=== PATIENT | male | born 1980 | race Two or more races ===

== ENCOUNTER 2022-01-04 10:17 | Outpatient (REF) | payer OTHER, SELFPAY ==
[2022-01-04 11:42] LABS: MANUAL DIFF FLAG NO
[2022-01-04 12:07] LABS: Basophils Percent Auto 0.4 % (0-2); Eosinophils Absolute Auto 0.1 X10*3/uL (0.0-0.4); Eosinophils Percent Auto 0.6 % (0-4); Hematocrit 45.1 % (42.0-52.0); Hemoglobin 16.2 g/dl (14.0-18.0); Imm Gran Abs Auto 0.02 X10*3/uL (0.00-0.03); Imm Gran Pct Auto 0.2 % (0.0-0.4); Lymphocytes Absolute Auto 2.2 X10*3/uL (1.2-4.9); Mean Corpuscular HGB Conc 35.9 g/dl (31.0-36.0); Mean Corpuscular Hemoglobin 30.1 pg (27.0-33.0); Mean Corpuscular Volume 83.8 fL (80.0-98.0); Mean Platelet Volume 11.1 fL (9.4-12.4); Monocytes Absolute Auto 0.4 X10*3/uL (0.1-1.2); Monocytes Percent Auto 4.9 % (2-11); Neutrophils Absolute Auto 5.4 x10*3/uL (2.0-8.3); Neutrophils Percent Auto 66.9 % (45-73); Platelet Count 264 X10*3/uL (160-400); Red Blood Count 5.38 X10*6/uL (4.60-5.80); Red Cell Distribution Width 11.8 % (11.0-16.0); White Blood Count 8.1 X10*3/uL (4.8-10.8)
[2022-01-04 12:18] LABS: Alanine Aminotransferase 20 U/L (0-40); Albumin Level 4.7 g/dL (3.5-5.0); Alkaline Phosphatase 51 U/L (39-117); Anion Gap 15 (12-20); Aspartate Amino Transferase 13 U/L (5-37); Bilirubin Total 2.1 mg/dL (0.0-1.0); Blood Urea Nitrogen 12 mg/dL (9-16); Calcium 9.8 mg/dL (8.4-10.2); Carbon Dioxide 26 mmol/L (22-29); Chloride 100 mmol/L (96-108); Cholesterol 246 mg/dL; Estimated Glomerular Filt Rate > 60; Glucose Fasting 310 mg/dL (60-99); HDL Cholesterol 46 mg/dL; LDL Cholesterol Calculated 168 mg/dl; Potassium 4.1 mmol/L (3.3-5.1); Sodium 137 mmol/L (135-145); Total Protein 7.2 g/dL (6.5-8.0); Triglycerides 162 mg/dL
[2022-01-04 12:42] LABS: TSH reflex Free T4 2.38 uIU/mL (0.32-4.0)
[2022-01-09 12:32] LABS: Vitamin D 25-OH, D2 <4 ng/mL; Vitamin D 25-OH, D3 46 ng/mL; Vitamin D 25-OH, Total 46 ng/mL (30-100)
== END 2022-01-04 10:18 | disposition home or self-care (01) ==
LOC: HO.HMGCLDS 10:17
PROVIDERS: PCP Internal Medicine; Visit Provider Internal Medicine
DX: R10.13 Epigastric pain (principal); R14.0 Abdominal distension (gaseous); E13.9 Other specified diabetes mellitus without complications; N52.9 Male erectile dysfunction, unspecified; Z76.89 Persons encountering health services in other specified circumstances
CPT/HCPCS: 36415; 80053; 80061; 82306; 84443; 85025

== ENCOUNTER 2022-01-22 08:30 | Outpatient (REF) | payer OTHER, SELFPAY ==
[2022-01-22 12:39] LABS: Bilirubin Direct 0.8 mg/dL (0.0-0.5); C Reactive Protein 0.09 mg/dL (< or = 0.50)
[2022-01-22 14:59] LABS: Erythrocyte Sedimentation Rate 3 MM/HR (0-15)
[2022-01-29 13:57] LABS: Endomysial IgA Antibody Negative (Negative)
[2022-01-30 09:17] LABS: Transglutaminase IgA <1.0 U/mL
== END 2022-01-22 08:31 | disposition home or self-care (01) ==
LOC: HO.WFDLDS 08:30
PROVIDERS: Visit Provider Physician Assistant
DX: R10.13 Epigastric pain (principal); R14.0 Abdominal distension (gaseous); K52.9 Noninfective gastroenteritis and colitis, unspecified
CPT/HCPCS: 36415; 82248; 85652; 86140; 86231; 86364

== ENCOUNTER 2022-01-25 09:46 | Outpatient (REF) | payer OTHER, SELFPAY ==
[2022-02-01 17:37] LABS: Calprotectin, Fecal 191 mcg/g
[2022-02-10 11:52] LABS: Fecal Fat Qualitative NORMAL (NORMAL)
== END 2022-01-25 09:47 | disposition home or self-care (01) ==
LOC: HO.WFDLNP 09:46
PROVIDERS: Visit Provider Physician Assistant
DX: K52.9 Noninfective gastroenteritis and colitis, unspecified (principal); R14.0 Abdominal distension (gaseous)
CPT/HCPCS: 82705; 83993; 87493

== ENCOUNTER 2022-03-14 10:45 | Outpatient (REF) | payer OTHER, SELFPAY ==
[2022-03-14 14:06] LABS: Alanine Aminotransferase 15 U/L (0-40); Albumin Level 4.3 g/dL (3.5-5.0); Alkaline Phosphatase 37 U/L (39-117); Anion Gap 14 (12-20); Aspartate Amino Transferase 10 U/L (5-37); Bilirubin Total 1.7 mg/dL (0.0-1.0); Blood Urea Nitrogen 13 mg/dL (9-16); Calcium 9.2 mg/dL (8.4-10.2); Carbon Dioxide 27 mmol/L (22-29); Chloride 104 mmol/L (96-108); Estimated Glomerular Filt Rate > 60; Glucose Random 153 mg/dL (60-115); Potassium 3.7 mmol/L (3.3-5.1); Sodium 141 mmol/L (135-145); Total Protein 6.6 g/dL (6.5-8.0)
== END 2022-03-14 10:46 | disposition home or self-care (01) ==
LOC: HO.HMGCLDS 10:45
PROVIDERS: PCP Internal Medicine; Visit Provider Physician Assistant
DX: K52.9 Noninfective gastroenteritis and colitis, unspecified (principal)
CPT/HCPCS: 36415; 80053

== ENCOUNTER 2022-05-21 10:28 | Outpatient (REF) | payer OTHER, SELFPAY ==
[2022-05-21 14:16] LABS: Estimated Average Glucose 140 mg/dL; Hemoglobin A1c % 6.5 %
[2022-05-21 14:24] LABS: Alanine Aminotransferase 16 U/L (0-40); Albumin Level 4.8 g/dL (3.5-5.0); Alkaline Phosphatase 41 U/L (39-117); Anion Gap 16 (12-20); Aspartate Amino Transferase 15 U/L (5-37); Bilirubin Total 2.4 mg/dL (0.0-1.0); Blood Urea Nitrogen 11 mg/dL (9-16); Calcium 9.7 mg/dL (8.4-10.2); Carbon Dioxide 26 mmol/L (22-29); Chloride 102 mmol/L (96-108); Estimated Glomerular Filt Rate > 60; Glucose Random 135 mg/dL (60-115); Potassium 3.7 mmol/L (3.3-5.1); Sodium 140 mmol/L (135-145); Total Protein 7.2 g/dL (6.5-8.0)
[2022-05-21 15:29] LABS: Creatinine Urine 71.21 mg/dL; Microalbum/Creatinine Ratio Ur 29.4 ug/mg cr
[2022-05-22 16:27] LABS: LDL Cholesterol Direct 147 mg/dL (<100)
== END 2022-05-21 10:29 | disposition home or self-care (01) ==
LOC: HO.HMGCLDS 10:28
PROVIDERS: PCP Internal Medicine; Visit Provider Internal Medicine
DX: E78.9 Disorder of lipoprotein metabolism, unspecified (principal); K58.9 Irritable bowel syndrome, unspecified; E13.9 Other specified diabetes mellitus without complications
CPT/HCPCS: 36415; 80053; 82043; 83036; 83721

== ENCOUNTER → 2022-07-18 12:49 | Day surgery (SDC) | payer OTHER, SELFPAY ==
[2022-07-09 14:38] VITALS: BMI 28.3
--- NOTE | 2022-07-17 13:26 | HO.ANESPROP2 ---
Documented by User: Lupis Brar NP 07/17/22 13:27 HPI - Anesthesia Eval Consult details Narrative: 42yo M for Upper Endoscopy and Colonoscopy [facility] Active Problems Active Problems: All Active Problems (Updated 07/09/22 @ 14:38 by Bambi Walker, LARRY) Diabetes 1.5, managed as type 2 (Acute) Erectile dysfunction (Acute) Establishing care with new doctor, encounter for (Acute) Epigastric pain (Acute) Bloating symptom (Acute) Chronic diarrhea (Acute) Uncontrolled diabetes mellitus (Acute) Environmental allergies (Acute) Tachycardia (Acute) Lipid disorder (Acute) IBS (irritable bowel syndrome) (Acute) Tinea corporis (Acute) Post-COVID syndrome (Acute) Shortness of breath (Acute) Tiredness (Acute) Past Medical History Medical History Diabetes Environmental allergies Erectile dysfunction History of COVID-19 Post-COVID syndrome Family History Family History Father Diabetes Thyroid disease Mother Diabetes Surgical History Surgical History History of anal fissures History of esophagogastroduodenoscopy (EGD) Hx of colonoscopy Social History Social History Housing: House Are you a primary inspector health care facilities to a significant other at home: No Do you presently have visiting nurse or other home services: No Alcohol intake: never Patient Tobacco Use Status: Never used Tobacco e-Cigarette/Vaping Use: Never Used Substance Use Type: Marijuana service: No Current occupational status: employed Cognitive needs: No Hearing needs: No Vision needs: No Meds Allergies Allergy/AdvReac Type Severity Reaction Status Date / Time No Known Allergies Allergy Verified 11/28/22 09:23 Home Medications Medication Instructions Recorded Confirmed Last Taken Type cetirizine 10 mg chewable tablet 10 mg PO DAILY 01/02/22 11/28/22 07/16/22 History Exam Exam Date and Time: July 17, 2022 1326 Height,Weight and Vital Signs: Height 5 ft 5 in Weight 77.111 kg Pertinent Lab Results Pertinent Lab Results: Laboratory Tests 01/04/22 05/21/22 10:24 10:32 WBC 8.1 Hgb 16.2 Hct 45.1 Plt Count 264 Sodium 140 Potassium 3.7 Chloride 102 Carbon Dioxide 26 BUN 11 Creatinine 0.75 Assessment and Plan Assessment Anesthesia Assessment: Chart Reviewed Documented by User: Florin Ly MD 11/28/22 17:27 [facility] Past Medical History Medical History Diabetes Environmental allergies Erectile dysfunction History of COVID-19 Post-COVID syndrome Family History Family History Father Diabetes Thyroid disease Mother Diabetes Family history of problems with anesthesia: No Surgical History Surgical History History of anal fissures History of esophagogastroduodenoscopy (EGD) Hx of colonoscopy History of Problems with Anesthesia: No Social History Social History Housing: House Are you a primary inspector health care facilities to a significant other at home: No Do you presently have visiting nurse or other home services: No Alcohol intake: never Patient Tobacco Use Status: Never used Tobacco e-Cigarette/Vaping Use: Never Used Substance Use Type: Marijuana service: No Current occupational status: employed Cognitive needs: No Hearing needs: No Vision needs: No Meds Allergies Allergy/AdvReac Type Severity Reaction Status Date / Time No Known Allergies Allergy Verified 11/28/22 09:23 Home Medications Medication Instructions Recorded Confirmed Last Taken Type cetirizine 10 mg chewable tablet 10 mg PO DAILY 01/02/22 11/28/22 07/16/22 History Exam Airway Mallampati Class: III TM Dist: >3cm Neck ROM: Full Loose/Missing/Broken Teeth: Yes (chipped teeth ) Heart: S1,S2 Lungs: diminished breath sounds Assessment and Plan Assessment Anesthesia Assessment: Anesthesia Plan Discussed Final Anesthetic Review Family History of Problems with Anesthesia: No History of Problems with Anesthesia: No NPO: Yes ASA Class: II Final Preanesthetic Review: Meds/Allgs Chart Reviewed, Consent Obtained/Reviewed and Anes Risks/Benef Reviewed Patient Risk: High Procedure Risk: Intermediate Anesthetic Plan Anesthetic Plan: MAC: and Agree w/ Assess. and Plan Disposition: Standard PACU
[2022-07-18 12:55] VITALS: BP 154/81; PULSE 90; RESP 20; TEMP 36.6; O2SAT 97
[2022-07-18 13:03] LABS: Glucose, Whole Blood 122 mg/dL (60-115)
[2022-07-18] MEDS: Lactated Ringers 1,000 ML 100 ML IVCONT (13:23)
[2022-07-18] MEDS: Albuterol/Iprat 2.5/0.5MG 3 ML AMPUL.NEB 1.5 ML INHALE (13:33)
[2022-07-18 13:36] VITALS: PULSE 75; RESP 20; O2SAT 93
--- NOTE | 2022-07-18 14:49 | W.PM.OPN ---
Operative Note Operative Note Date of Service: 07/18/22 Narrative: Operative Information Procedure Description: EGD, Colonoscopy Indication: diarrhea Anesthesia: MAC FLEXIBLE TRANSORAL UPPER GASTROINTESTINAL ENDOSCOPY AND COLONOSCOPY PROCEDURE NOTE UPPER ENDOSCOPY Consent: Indications for the procedure and potential complications of bleeding, perforation, reaction to medications and missed diagnosis were discussed with the patient and informed consent was obtained. Instrument: Olympus GIF H 190 J mid size upper endoscope Monitoring: Vital signs and clinical assessment, continuous EKG monitoring, Pulse oximetry, Carbon Dioxide monitoring and blood pressure monitoring were done throughout the procedure. Procedure: The patient was placed in the left lateral decubitis position and pre-procedure medications were administered and a bite block was placed. The endoscope was inserted into the mouth and advanced under direct vision to the third part of duodenum. A careful inspection was made as the upper endoscope was withdrawn including a retroflexed examination of the proximal stomach; Findings and interventions are described below. Findings: Larynx:normal Esophagus: GE junction at 39 cm, diaphragm hiatus at 41 cm, consistent with 2 cm sliding hiatal hernia, slightly lax LES, bx taken from GEJ and distal esophagus Stomach: Severe erythema and induration mid body and antrum, bx taken. Grade 2 flap valve on retroflexed examination of the cardia. Small polyp, removed with cold forceps Duodenum: bulbar duodenitis, bx taken Intervention: Biopsies as noted above COLONOSCOPY Instrument: Olympus variable stiffness pediatric scope 190L Colonoscopy Monitoring: Vital signs and clinical assessment, continuous EKG monitoring, Pulse oximetry, Carbon Dioxide monitoring and blood pressure monitoring were done throughout the procedure. Colon withdrawal time was 10 minutes. Procedure: The patient was placed in the left lateral decubitis position and pre-procedure medications were administered. After a digital rectal examination of the ano-rectum, the video colonoscope was inserted into the rectum and advanced through the colon to the cecum/TI. The colonoscope was slowly withdrawn in a retrograde panoramic fashion and the colon mucosa was carefully examined including a retroflexed view of the rectum. Findings and interventions are described below. Procedure Difficulty: Findings: Terminal Ileum- mile erythema, bx taken Random bx taken from right, left and rectum areas in separate jars. Cecum:normal Ascending Colon: normal Transverse Colon -normal Descending Colon:normal Sigmoid Colon: normal Rectum: Retroflexion with medium sized internal hemorrhoids, grade I Anorectum - normal Colon preparation: [place] Bowel Preparation Scale Right colon; 2 Transverse colon: 2 Left colon; 2 (0 = Unprepared colon segment with mucosa not seen due to solid stool that cannot be cleared. 1 = Portion of mucosa of the colon segment seen, but other areas of the colon segment not well seen due to staining, residual stool and/or opaque liquid. 2 = Minor amount of residual staining, small fragments of stool and/or opaque liquid, but mucosa of colon segment seen well. 3 = Entire mucosa of colon segment seen well with no residual staining, small fragments of stool or opaque liquid) Impression and Post Procedure Diagnosis: Endoscopy Findings: gastritis hiatal hernia duodenitis mild esophagitis Colonoscopy Findings: mild ileitis internal hemorrhoids Plan: Await Pathology results Repeat Colonoscopy in 10 years or earlier if clinically indicated High fiber diet leaflet avoid straining at stool, epsom salts and sitz bath, anusol supps or cream might consider capsule endoscopy vs CTe for further eval of Small bowel if h pylori pos then treat consider increasing PPI dose, checking compliance, nsaid use Above findings were reviewed with the patient and relevant handouts were provided if indicated.
--- NOTE | 2022-07-18 14:50 | MHC.SHP ---
Pre-Procedural Eval Section A Date of Service: 07/18/22 Section B Chief Complaint: pain and chronic diahrrea Relevant Family History (Specify if Yes): No Relevant Social History: None Present Medications: see Short Stay Collaborative assessment Medical History: Significant History (Diabetes Environmental allergies History of COVID-19 Post-COVID syndrome) History of Previous Operations: Relevant previous surgery/procedure and date(s) ( History of anal fissures History of esophagogastroduodenoscopy (EGD) Hx of colonoscopy) Allergies: Allergies Allergy/AdvReac Type Severity Reaction Status Date / Time No Known Allergies Allergy Verified 05/29/22 11:41 Review of Systems Sugical H&P ROS: Negative: Constitution, Cardiovascular, Respiratory, Neurological, Psychiatric, Hem-Onc, Allergic/Immunologic, Gastrointestinal, Genitourinary, Musculoskeletal, Integumentary, Endocrine and Eyes/Ears/Nose/Throat Exam Surgical H&P Exam: Normal: HEENT, Normal: Heart, Normal: Lungs, Normal: Extremities, Normal: Abdomen, Normal: Skin and Normal: Neurological Plan Diagnosis/Plan: Unchanged I have reviewed the history and physical and performed a pertinent physical examination on my patient. No changes have occurred unless specified. Time Spent With Patient Time: Total time managing care of this patient today ____ minutes.
[2022-07-18 15:48] VITALS: BP 110/69; PULSE 97; RESP 18; TEMP 36.4; O2SAT 98
[2022-07-18 16:03] VITALS: BP 125/83; PULSE 96; RESP 16; O2SAT 97
[2022-07-18 16:11] VITALS: BP 133/93; PULSE 91; RESP 16; TEMP 36.6; O2SAT 98
== END ==
PROVIDERS: PCP Internal Medicine; Visit Provider Internal Medicine Gastroenterology
PROC: (CPT 45380; principal; 2022-07-18 14:00)
DX: K52.9 Noninfective gastroenteritis and colitis, unspecified (principal); K64.0 First degree hemorrhoids; K29.50 Unspecified chronic gastritis without bleeding; K29.80 Duodenitis without bleeding; K20.80 Other esophagitis without bleeding; K44.9 Diaphragmatic hernia without obstruction or gangrene; F12.90 Cannabis use, unspecified, uncomplicated; E11.9 Type 2 diabetes mellitus without complications; Z79.84 Long term (current) use of oral hypoglycemic drugs; Z79.899 Other long term (current) drug therapy; Z91.048 Other nonmedicinal substance allergy status; Z86.16 Personal history of COVID-19
CPT/HCPCS: 45380; 43239; 82947; 88305; 88342; 94640

== ENCOUNTER → 2022-08-01 08:26 | Outpatient (BNVA) | payer OTHER, SELFPAY | PROVIDERS: PCP Internal Medicine; Visit Provider Physician Assistant | DX: K52.9 Noninfective gastroenteritis and colitis, unspecified (principal) ==

== ENCOUNTER 2022-08-16 07:51 | Outpatient (REF) | payer OTHER, SELFPAY ==
--- NOTE | ~2022-08-16 | CT_ITS ---
EXAMINATION: CT ENTEROGRAPHY ABDOMEN AND PELVIS WITH CONTRAST CLINICAL INFORMATION: Iron deficiency. COMPARISON: None TECHNIQUE: Study performed with oral Breeza to distend the gastrointestinal tract. The patient was injected with 85 mL Omnipaque 350 intravenous contrast which was administered without adverse effect. Coronal and sagittal reformatted images were obtained at the technologist's workstation. This CT examination was performed using dose optimization techniques as appropriate, variously including the following: *Automated exposure control *Adjustment of mA and/or kV according to patient size (this includes techniques or standardized protocols for targeted exams where dose is matched to indication/reason for exam; i.e. extremities or head) *Use of iterative reconstruction technique DLP: 403 mGy-cm FINDINGS: LUNG BASES: Normal. No pulmonary consolidation or pleural effusion. LIVER: The liver has normal size, shape, and attenuation. No evidence of cirrhosis. A small area of decreased attenuation in the left lobe adjacent to the falciform ligament is likely from focal steatosis (image 20, series 7). There is peripheral opacification of a 3 cm hypodense focus in the right hepatic lobe in a pattern highly suggestive of cavernous hemangioma. No suspicious liver lesion. GALLBLADDER AND BILIARY TREE: Gallbladder is physiologically distended and without radiopaque stones, wall thickening or pericholecystic fluid. No dilated bile ducts. PANCREAS: No edema, pancreatic ductal dilatation or mass. SPLEEN: Normal. ADRENAL GLANDS: Normal. KIDNEYS AND URETERS: The kidneys have normal size and cortical thickness. No perinephric edema or fluid collection. No urolithiasis or hydroureteronephrosis. BLADDER: Normal. No calculi or wall thickening. BOWEL AND PERITONEUM: Stomach is well distended and has normal wall thickness. Small 0.7 cm focus of posteriorly layering intraluminal debris or polyp along the posterior wall of the gastric antrum (image 25, series 7). Small bowel loops, including terminal ileum, are normal. The small and large bowel have normal wall thickness. No evidence of a mass, edematous thickening of bowel christine, mesenteric fat stranding or free fluid. The appendix is normal. The rectoanal region is unremarkable. ABDOMINAL WALL: Normal. VASCULATURE: Abdominal aorta is normal in caliber. The celiac trunk, SMA, NAHED and renal arteries are widely patent. LYMPH NODES: No pathologic sized lymph nodes in the abdomen or pelvis. No inguinal lymphadenopathy. PELVIC VISCERA: Prostate gland is unremarkable. No pelvic mass or free fluid. MUSCULOSKELETAL: No suspicious bone lesions. Mild spondylosis of the visualized lower thoracic spine. Schmorl's node of the L5 superior endplate. CT/CT enterography IMPRESSION: * No evidence of inflammatory bowel disease. * Possible 0.7 cm polyp of the posterior wall of the gastric fundus (image 25, series 7). * 3 cm hemangioma within the right lobe of the liver.
[2022-08-16] MEDS: iohexoL 350 MG/ML 100 ML INFUS..BTL 85 ML IV (09:35)
[2022-08-16] MEDS: Sorbitol/Mannit/Xanth Imaging 500 ML LIQUID 1500 ML PO (09:36)
== END 2022-08-16 07:52 | disposition home or self-care (01) ==
LOC: HO.CT 07:51
PROVIDERS: PCP Internal Medicine; Visit Provider Physician Assistant
DX: K52.9 Noninfective gastroenteritis and colitis, unspecified (principal); R93.3 Abnormal findings on diagnostic imaging of other parts of digestive tract; E61.1 Iron deficiency
CPT/HCPCS: 74177; Q9967

== ENCOUNTER → 2022-08-28 13:40 | Outpatient (BNVA) | payer OTHER, SELFPAY | PROVIDERS: PCP Internal Medicine; Visit Provider Urology | DX: Z13.89 Encounter for screening for other disorder (principal) ==

== ENCOUNTER 2022-11-22 08:54 | Outpatient (REF) | payer OTHER, SELFPAY ==
[2022-11-22 11:44] LABS: MANUAL DIFF FLAG NO
[2022-11-22 12:04] LABS: Basophils Absolute Auto 0.1 X10*3/uL (0.0-0.2); Basophils Percent Auto 0.6 % (0-2); Eosinophils Absolute Auto 0.1 X10*3/uL (0.0-0.4); Eosinophils Percent Auto 1.7 % (0-4); Estimated Average Glucose 143 mg/dL; Hematocrit 42.4 % (42.0-52.0); Hemoglobin 15.2 g/dl (14.0-18.0); Hemoglobin A1c % 6.6 %; Imm Gran Abs Auto 0.03 X10*3/uL (0.00-0.03); Imm Gran Pct Auto 0.4 % (0.0-0.4); Lymphocytes Absolute Auto 2.3 X10*3/uL (1.2-4.9); Lymphocytes Percent Auto 29.2 % (20-40); Mean Corpuscular HGB Conc 35.8 g/dl (31.0-36.0); Mean Corpuscular Hemoglobin 31.1 pg (27.0-33.0); Mean Corpuscular Volume 86.7 fL (80.0-98.0); Mean Platelet Volume 10.8 fL (9.4-12.4); Monocytes Absolute Auto 0.5 X10*3/uL (0.1-1.2); Monocytes Percent Auto 6.7 % (2-11); Neutrophils Absolute Auto 4.8 x10*3/uL (2.0-8.3); Neutrophils Percent Auto 61.4 % (45-73); Platelet Count 235 X10*3/uL (160-400); Red Blood Count 4.89 X10*6/uL (4.60-5.80); Red Cell Distribution Width 12.6 % (11.0-16.0); White Blood Count 7.7 X10*3/uL (4.8-10.8)
[2022-11-22 12:28] LABS: Alanine Aminotransferase 33 U/L (0-40); Albumin Level 4.6 g/dL (3.5-5.0); Alkaline Phosphatase 45 U/L (39-117); Anion Gap 11 (12-20); Aspartate Amino Transferase 23 U/L (5-37); Bilirubin Total 2.3 mg/dL (0.0-1.0); Blood Urea Nitrogen 16 mg/dL (9-16); Calcium 9.4 mg/dL (8.4-10.2); Carbon Dioxide 26 mmol/L (22-29); Chloride 107 mmol/L (96-108); Cholesterol 203 mg/dL; Estimated Glomerular Filt Rate > 60; Glucose Fasting 146 mg/dL (60-99); HDL Cholesterol 41 mg/dL; LDL Cholesterol Calculated 140 mg/dl; Potassium 3.9 mmol/L (3.3-5.1); Sodium 140 mmol/L (135-145); Total Protein 6.9 g/dL (6.5-8.0); Triglycerides 114 mg/dL
[2022-11-22 12:53] LABS: Creatinine Urine 90.86 mg/dL; Microalbum/Creatinine Ratio Ur 29.7 ug/mg cr
== END 2022-11-22 08:55 | disposition home or self-care (01) ==
LOC: HO.HMGCLDS 08:54
PROVIDERS: PCP Internal Medicine; Visit Provider Internal Medicine
DX: E13.9 Other specified diabetes mellitus without complications (principal); E78.9 Disorder of lipoprotein metabolism, unspecified; B35.4 Tinea corporis; U09.9 Post COVID-19 condition, unspecified; R06.02 Shortness of breath; R53.83 Other fatigue; Z91.09 Other allergy status, other than to drugs and biological substances
CPT/HCPCS: 36415; 80053; 80061; 82043; 83036; 85025

== ENCOUNTER → 2022-11-28 09:21 | Outpatient (BNVA) | payer OTHER, SELFPAY | PROVIDERS: PCP Internal Medicine; Visit Provider Urology ==

== ENCOUNTER 2023-03-19 11:37 | Outpatient (AMB) | payer OTHER, SELFPAY ==
--- NOTE | 2023-03-19 11:43 | A.OFFPC_ITS ---
Vital Signs 03/19/23 11:45 Height 5 ft 5 in Weight 191 lb 4 oz BMI 31.8 BP 126/66 Blood Pressure Location Rt brachial Position Sitting Pulse 79 Pulse Source Pulse Oximeter Pulse Oximetry (%) 97 Oxygen Delivery Method Room Air Intake Visit Reasons: 3 wk follow up Per kanchan Allergies No Known Allergies Allergy (Verified 03/19/23 11:48) Medication List - Last Reconciled 03/19/23 by Luis Leonard MD albuterol sulfate 90 mcg/actuation (ProAir HFA) 1 inh inhalation QID PRN 30 days blood sugar diagnostic (FreeStyle Lite Strips) Use to check blood sugar TIDAC blood-glucose meter (FreeStyle Lite Meter kit) Use to check blood sugar TIDAC cetirizine 10 mg PO DAILY escitalopram oxalate (Lexapro) 5 mg PO DAILY flash glucose scanning reader ([employer]ility [employer] SolutionsStyle Jalyn 2 [place]) Once a day flash glucose sensor ([employer]Style Jalyn 2 Sensor kit) As directed glipizide 10 mg PO BID 90 days lancets ([employer]Style Lancets) Use to check blood sugar TIDAC meloxicam 15 mg PO DAILY omeprazole 40 mg (2 x 20 mg) PO QAM 30 days tadalafil 20 mg PO DAILY PRN 30 days tadalafil 10 mg PO DAILY 90 days Tobacco use date assessed: 03/19/23 Dental Screening Dental Screen Date: 03/19/23 Did you have a dental visit in the last 12 months?: No Did you have a dental problem in the last 6 months where you did not have access to dental care?: No Was dental information given to patient?: No HPI 3 wk follow up Per kanchan HPI Details Patient is a 42-year-old male who was last seen in September of this year when he presented with severe depression and was suicidal because his was about to leave him Patient was started on Lexapro 5 mg and alprazolam he was supposed to come back in 3 weeks but never came back He tells me that he and his started marriage counseling and she is still with him. Then he missed his physical exam appointment as well, he now have a physical exam appointment in June. He ran out of his Lexapro and never had a chance to see the psychiatrist he is still seeing counselor every 1 week. Patient is diabetic and is taking his medication regularly, last time he had labs was in November of this year his hemoglobin A1c was 6.6 Allergies are stable with cetirizine GERD is stable with omeprazole 40 mg Lipid disorder: Continue diet Patient is seeing Urology for erectile dysfunction. BMI is elevated at 31.8 need to lose weight Follow-up June labs are needed before visit fasting [facility] Medical History Diabetes Environmental allergies Erectile dysfunction History of COVID-19 Post-COVID syndrome Surgical History History of anal fissures History of esophagogastroduodenoscopy (EGD) Hx of colonoscopy Family History Father Diabetes Thyroid disease Mother Diabetes Social History Housing: House Are you a primary managed care specialist to a significant other at home: No Do you presently have visiting nurse or other home services: No Alcohol intake: never Patient Tobacco Use Status: Never used Tobacco e-Cigarette/Vaping Use: Never Used Substance Use Type: Marijuana service: No Current occupational status: employed Cognitive needs: No Hearing needs: No Vision needs: No Questionnaire PHQ-9 Over the last 2 weeks, how often have you been bothered by any of the following problems? 1. Little interest or pleasure in doing things: not at all 2. Feeling down, depressed, or hopeless: several days 3. Trouble falling or staying asleep, or sleeping too much: not at all 4. Feeling tired or having little energy: not at all 5. Poor appetite or overeating: several days 6. Feeling bad about yourself - or that you are a failure or have let yourself or your family down: several days 7. Trouble concentrating on things, such as reading the newspaper or watching television: several days 8. Moving or speaking so slowly that other people could have noticed. Or the opposite - being so fidgety or restless that you have been moving around a lot more than usual: not at all 9. Thoughts that you would be better off or of hurting yourself in some way: not at all Total score: 4 Depression Screening Interpretation: Negative 36307 - PHQ-9 Billing: Yes Source: Developed by Drs. Michael Bryan, Barbara Yu, Roger Saucedo and colleagues, with an educational vivi from [employer]. Thrive Questionnaire Date Thrive assessed: 03/19/23 I am a: Patient What is your living situation today?: I have a steady place to live Within the past 12 months, did the food you bought not last and you didn't have the money to get more?: Never true Within the past 12 months, did you worry whether your food would run out before you got money to buy more?: Sometimes True Do you have trouble paying for medicines?: Yes Do you have trouble getting transportation to medical appointments?: No Do you have trouble paying your heating and electricity bill?: Yes Do you have trouble taking care of your child, family member or friend?: No Do you have trouble with day-to-day activities such as bathing, preparing meals, shopping, managing finances, etc.?: No Are you currently unemployed and looking for a job?: No Are you interested in more education?: No Please select the resources that you would like help with: Paying for medicine and Utilities AUDIT C Alcohol Use Questionnaire (AUDIT-C) 1. How often do you have a drink containing alcohol?: Never 3. How often do you have six or more drinks on one occasion?: Never Total Score: 0 Score Reviewed/Action Taken: Yes LORETA-7 AMB Questionnaire LORETA-7 Date LORETA - 7 assessed: 03/19/23 Feeling nervous, anxious, or on edge: 1 = Several days Not being able to stop or control worryin = Several days Worrying too much about different things: 1 = Several days Trouble relaxin = Not at all Being so restless that it is hard to sit still: 0 = Not at all Becoming easily annoyed or irritable: 0 = Not at all Feeling afraid as if something awful might happen: 0 = Not at all Total LORETA-7 score (0-4 normal; 5-9 mild; 10-14 moderate; 15-21 severe): 3 Source: Developed by Drs. Michael Bryan, Roger Garcia and colleagues, with an educational vivi from [employer]. LORETA-7 Assessment Billing LOREAT-7 Assessment Tool: LORETA-7 Assessment 28714 Review of Systems Const Denies chills and Denies fever(s) ENT Denies epistaxis and Denies nasal discharge Card Denies chest pain Resp Denies chest congestion, Denies cough and Denies hemoptysis GI Denies diarrhea and Denies nausea Skin/Breast Denies rash Neuro Reports no additional complaints Psych Reports no additional complaints Endo Reports no additional complaints Physical exam (Primary Care) Vital Signs: Last Vital Signs Pulse 79 03/19/23 11:45 BP 126/66 03/19/23 11:45 Pulse Ox 97 03/19/23 11:45 Oxygen Delivery Method Room Air 03/19/23 11:45 BMI result Body Mass Index 31.8 Tobacco/Smoking Status: Tobacco use Status Tobacco use date assessed 03/19/23 03/19/23 11:49 Patient Tobacco Use Status Never used Tobacco 03/19/23 11:44 e-Cigarette/Vaping Use Never Used 03/19/23 11:44 PHQ-9: PHQ-9 Score PHQ-9: Total score 4 03/19/23 12:11 Depression Screening Interpretation: Negative Thrive Assessment: Date of Thrive Assessment Date Thrive assessed 03/19/23 03/19/23 12:11 Const General: cooperative, comfortable and no acute distress Orientation/consciousness: patient oriented x3 HENMT Head: Yes normocephalic Eyes General: appearance normal, both eyes and all related structures Neck Neck: Yes supple Resp Effort & Inspection: normal respiratory effort, no cough and no stridor Cardio Rhythm: regular rhythm Heart sounds: S1 normal heart sound present and S2 normal heart sound present Skin General skin exam: turgor normal Neuro General: patient oriented x3, tone normal and moves all extremities Extrem Right lower extremity: no edema Left lower extremity: no edema Assessment and Plan Assessment & Plan (1) Major depressive disorder, severe: Code(s): F32.2 - Major depressive disorder, single episode, severe without psychotic features (2) Diabetes 1.5, managed as type 2: Code(s): E13.9 - Other specified diabetes mellitus without complications (3) Environmental allergies: Code(s): Z91.09 - Other allergy status, other than to drugs and biological substances (4) Lipid disorder: Code(s): E78.9 - Disorder of lipoprotein metabolism, unspecified (5) Erectile dysfunction associated with type 2 diabetes mellitus: Code(s): E11.69 - Type 2 diabetes mellitus with other specified complication; N52.1 - Ere ctile dysfunction due to diseases classified elsewhere (6) Obesity due to excess calories: Comment: If your BMI is between 25 and 29.9, you are overweight. If your BMI is 30 or greater, you are obese. ___ Being obese is a problem, because it increases the risks of many different health problems. It can also make it hard for you to move, breathe, and do other things that people who are at a healthy weight can do easily. Plus, being obese can be hard emotionally. ___ What are the health risks of being obese? Being obese increases a persons risk of developing many health problems. Here are just a few examples: __ Diabetes High blood pressure, High cholesterol, Heart disease (including heart attacks) Stroke, Sleep apnea (a disorder in which you stop breathing for short periods while asleep) Asthma, Cancer __ Does being obese shorten a persons life? Yes. Studies show that people who are obese younger than people who are a healthy weight. They also show that the risk of goes up the heavier a person is. The degree of increased risk depends on how long the person has been obese, and on what other medical pro blems he or she has. , Reduce your carbohydrate intake and choose carbs that are complex. Remember as a general rule of thumb, avoid highly processed foods. If it's white and soft, it's probably been stripped of its nutritional value. Change white bread to whole wheat bread, white rice to brown rice, white potatoes to sweet potatoes, white pasta to whole wheat pasta. Monitor portion sizes too: protein should be no bigger than your fist. Limit your red meat intake to only once or twice a wk. Eat more white meat but make sure to avoid creamy sauces etc. Broiling, baking or grilling is best. Increase dark, green leafy vegetables and fruits. Code(s): E66.09 - Other obesity due to excess calories Plan Patient is a 42-year-old male who was last seen in September of this year when he presented with severe depression and was suicidal because his was about to leave him Patient was started on Lexapro 5 mg and alprazolam he was supposed to come back in 3 weeks but never came back He tells me that he and his started marriage counseling and she is still with him. Then he missed his physical exam appointment as well, he now have a physical exam appointment in June. He ran out of his Lexapro and never had a chance to see the psychiatrist he is still seeing counselor every 1 week. Patient is diabetic and is taking his medication regularly, last time he had labs was in November of this year his hemoglobin A1c was 6.6 Allergies are stable with cetirizine GERD is stable with omeprazole 40 mg Lipid disorder: Continue diet Patient is seeing Urology for erectile dysfunction. BMI is elevated at 31.8 need to lose weight Follow-up June labs are needed before visit fasting Orders: Orders Comprehensive [place]. Panel Fast Today E11.69 - Type 2 diabetes mellitus with othe r specified complication, E13.9 - Other specified diabetes mellitus without complications, E78.9 - Disorder of lipoprotein metabolism, unspecified, F32.2 - Major depressive disorder, single episode, severe without psychotic features, N52.1 - Erectile dysfunction due to diseases classified elsewhere, Z91.09 - Other allergy status, other than to drugs and biological substances Hemoglobin A1c Today E11.69 - Type 2 diabetes mellitus with other specified complication, E13.9 - Other specified diabetes mellitus without complications, E78.9 - Disorder of lipoprotein metabolism, unspecified, F32.2 - Major depressive disorder, single episode, severe without psychotic features, N52.1 - Erectile dysfunction due to diseases classified elsewhere, Z91.09 - Other allergy status, other than to drugs and biological substances Lipid Panel Today E11.69 - Type 2 diabetes mellitus with other specified complication, E13.9 - Other specified diabetes mellitus without complications, E78.9 - Disorder of lipoprotein metabolism, unspecified, F32.2 - Major depressive disorder, single episode, severe without psychotic features, N52.1 - Erectile dysfunction due to diseases classified elsewhere, Z91.09 - Other allergy status, other than to drugs and biological substances Microalbumin, Random (w Creat) Today E11.69 - Type 2 diabetes mellitus with other specified complication, E13.9 - Other specified diabetes mellitus without complications, E78.9 - Disorder of lipoprotein metabolism, unspecified, F32.2 - Major depressive disorder, single episode, severe without psychotic features, N52.1 - Erectile dysfunction due to diseases classified elsewhere, Z91.09 - Other allergy status, other than to drugs and biological substances Complete Blood Count Auto Diff Today E11.69 - Type 2 diabetes mellitus with other specified complication, E13.9 - Other specified diabetes mellitus without complications, E78.9 - Disorder of lipoprotein metabolism, unspecified, F32.2 - Major depressive disorder, single episode, severe without psychotic features, N52.1 - Erectile dysfunction due to diseases classified elsewhere, Z91.09 - Other allergy status, other than to drugs and biological substances Medications: Refilled escitalopram oxalate (Lexapro) 5 mg PO DAILY 90 tabs 1RF Coding Level of Care Code Est Pt Level 4 (25095) Diagnoses Major depressive disorder, severe F32.2 Diabetes 1.5, managed as type 2 E13.9 Environmental allergies Z91.09 Lipid disorder E78.9 Erectile dysfunction associated with type 2 diabetes mellitus E11.69; N52.1 Obesity due to excess calories E66.09 Additional Codes LORETA-7 Assessment Billing - LORETA-7 Assessment Tool: LORETA-7 Assessment [id number] ([id number])
[2023-03-19 11:45] VITALS: BP 126/66; PULSE 79; O2SAT 97; BMI 31.8
== END 2023-03-19 13:04 | disposition home or self-care (01) ==
PROVIDERS: PCP Internal Medicine; Visit Provider Internal Medicine
DX: E11.69 Type 2 diabetes mellitus with other specified complication (principal); F32.2 Major depressive disorder, single episode, severe without psychotic features; Z91.09 Other allergy status, other than to drugs and biological substances; E78.9 Disorder of lipoprotein metabolism, unspecified; N52.1 Erectile dysfunction due to diseases classified elsewhere; E66.09 Other obesity due to excess calories
CPT/HCPCS: 99214

== ENCOUNTER 2023-05-27 10:20 | Outpatient (AMB) | payer OTHER, SELFPAY ==
--- NOTE | 2023-05-27 10:35 | A.OFFVIS_ITS ---
Intake Intake Visit Reasons: 6m follow up Intake Note: Patient is Present for Follow Up Urology Medication: Tadalafil Antibiotic Allergies: None Blood Thinners: None [facility]acy: [facility] Allergies No Known Allergies Allergy (Verified 05/27/23 10:37) HPI HPI Comments History of Present Illness Details Aguilar is a pleasant male. . He is a patient of Dr. Leonard . He is seen for the following urologic conditions - erectile dysfunction Is able to obtain but cannot maintain erection using 10 mg daily with 20 mg on demand Discussed use of constriction band Information provided Has been working on diabetes Also has small skin tag on sulcus of penis. Is interested in removal. Will discuss in 6 months Erectile Dysfunction with type 2 diabetes He presents today for - further evaluation erectile dysfunction Current treatment includes - daily tadalafil 5 mg with 20 mg on demand At the time of initial evaluation he experiences - erections are partial inadequate for vaginal penetration - undergo rapid detumescence Symptoms have been present for/since - progressive over past 18 months Nocturnal erections occasionally occur Prior therapies include - none Treatment side effects include - none Associated Medical Conditions include diabetes, dyslipidemia Physical Performance Status is able to walk 200 yd and can ascend 2 flights of stairs easily without breathlessness Atherosclerosis Cardiovascular Disease Risk - 11/17 HbA1c 6.6, cholesterol 203 Medications include(s) glipizide Overall - has been seen positive affects Therapeutic plan includes - Trial maximal therapy PFSH Medical History Environmental allergies Diabetes Post-COVID syndrome History of COVID-19 Erectile dysfunction Surgical History Hx of colonoscopy History of esophagogastroduodenoscopy (EGD) History of anal fissures Family History Father Diabetes Thyroid disease Mother Diabetes Social History Housing: House Are you a primary resident care associate to a significant other at home: No Do you presently have visiting nurse or other home services: No Alcohol intake: never Patient Tobacco Use Status: Never used Tobacco e-Cigarette/Vaping Use: Never Used Substance Use Type: Marijuana service: No Current occupational status: employed Cognitive needs: No Hearing needs: No Vision needs: No Review of Systems Const Denies chills and Denies fever(s) Card Reports no additional complaints and Denies syncope Resp Denies cough GI Denies abdominal pain and Denies heartburn Reports as per HPI and Denies change in libido Neuro Denies syncope Psych Denies change in libido Endo Denies change in libido Physical Exam Const General: cooperative, healthy appearing, comfortable and no acute distress Orientation/consciousness: patient oriented x3 HEENT Face and sinus: Yes normal facial exam Mouth: moist mucous membranes Neck Neck: Yes normal visual inspection, Yes full ROM and Yes trachea midline Chest Chest palpation & inspection: normal inspection of the chest Resp Effort & Inspection: normal respiratory effort, able to speak in complete s entences and no respiratory distress GI Inspection: Yes normal to inspection Back/Spine/Pelvis Cervical Spine: normal cervical lordosis Thoracic/Lumbar Spine: thoracic and lumbar spine normal to inspection Skin General skin exam: no rashes or lesions noted Neuro General: patient oriented x3, gait normal, tone normal and moves all extremities Extrem General: Yes normal to inspection and Yes capillary refill normal Assessment & Plan Assessment & Plan (1) Erectile dysfunction associated with type 2 diabetes mellitus: Code(s): E11.69 - Type 2 diabetes mellitus with other specified complication; N52.1 - Erectile dysfunction due to diseases classified elsewhere Plan Six month follow-up Patient Instructions: Imaging studies, laboratory and physical exam results were discussed and reviewed in detail. No major barriers to patient understanding were identified. An opportunity to ask questions regarding the treatment plan was provided. All questions were answered. The patient expressed understanding and agreement with the above treatment plan. The patient is aware they should contact our office by phone for worsening of th eir current condition or the appearance of new urologic symptoms. Compliance is encouraged with any medications and followup testing that is ordered. It is a privilege to participate in the urologic care of your patient. If you have any questions or concerns regarding treatment for the above conditions, or other urologic issues, please do not hesitate to contact me. The office telephone contact is [phone]. This note is constructed using voice recognition software. While every effort has been made to ensure accuracy wireless manager errors may have been included. Yours sincerely, Dr James Khanna MD, [facility] - Urology Providers of Expert, Compassionate Care for the Genitourinary System Coding Level of Care Code Est Pt Level 3 (44800) Diagnoses Erectile dysfunction associated with type 2 diabetes mellitus E11.69; N52.1
== END 2023-05-27 11:32 | disposition home or self-care (01) ==
PROVIDERS: Visit Provider Urology
DX: E11.69 Type 2 diabetes mellitus with other specified complication (principal); N52.1 Erectile dysfunction due to diseases classified elsewhere
CPT/HCPCS: 99213

== ENCOUNTER → 2023-05-27 10:20 | Outpatient (BNVA) | payer OTHER, SELFPAY | PROVIDERS: Visit Provider Urology ==

== ENCOUNTER 2023-07-14 09:06 | Outpatient (REF) | payer OTHER, SELFPAY ==
[2023-07-14 11:35] LABS: MANUAL DIFF FLAG NO
[2023-07-14 11:38] LABS: Basophils Absolute Auto 0.1 X10*3/uL (0.0-0.2); Basophils Percent Auto 0.6 % (0-2); Eosinophils Absolute Auto 0.3 X10*3/uL (0.0-0.4); Eosinophils Percent Auto 3.5 % (0-4); Hemoglobin 15.7 g/dl (14.0-18.0); Imm Gran Abs Auto 0.05 X10*3/uL (0.00-0.03); Imm Gran Pct Auto 0.6 % (0.0-0.4); Lymphocytes Absolute Auto 2.4 X10*3/uL (1.2-4.9); Lymphocytes Percent Auto 29.2 % (20-40); Mean Corpuscular HGB Conc 34.9 g/dl (31.0-36.0); Mean Platelet Volume 10.7 fL (9.4-12.4); Monocytes Absolute Auto 0.5 X10*3/uL (0.1-1.2); Monocytes Percent Auto 6.4 % (2-11); Neutrophils Absolute Auto 4.9 x10*3/uL (2.0-8.3); Neutrophils Percent Auto 59.7 % (45-73); Platelet Count 241 X10*3/uL (160-400); Red Blood Count 5.23 X10*6/uL (4.60-5.80); Red Cell Distribution Width 12.5 % (11.0-16.0); White Blood Count 8.2 X10*3/uL (4.8-10.8)
[2023-07-14 11:55] LABS: Estimated Average Glucose 169 mg/dL; Hemoglobin A1c % 7.5 % (<6.0)
[2023-07-14 12:07] LABS: Creatinine Urine 216.71 mg/dL; Microalbum/Creatinine Ratio Ur 118.1 ug/mg cr (<30)
[2023-07-14 12:29] LABS: Alanine Aminotransferase 32 U/L (0-40); Albumin Level 4.4 g/dL (3.5-5.0); Alkaline Phosphatase 48 U/L (39-117); Anion Gap 13 (12-20); Aspartate Amino Transferase 27 U/L (5-37); Bilirubin Total 1.3 mg/dL (0.0-1.0); Blood Urea Nitrogen 13 mg/dL (9-16); Calcium 9.3 mg/dL (8.4-10.2); Carbon Dioxide 27 mmol/L (22-29); Chloride 103 mmol/L (96-108); Cholesterol 183 mg/dL (<200); Estimated Glomerular Filt Rate > 60; Glucose Fasting 193 mg/dL (60-99); HDL Cholesterol 38 mg/dL (>40); LDL Cholesterol Calculated 124 mg/dL (<100); Potassium 3.3 mmol/L (3.3-5.1); Sodium 140 mmol/L (135-145); Total Protein 7.2 g/dL (6.5-8.0); Triglycerides 107 mg/dL (<150)
== END 2023-07-14 09:07 | disposition home or self-care (01) ==
LOC: HO.HMGCLDS 09:06
PROVIDERS: PCP Internal Medicine; Visit Provider Internal Medicine
DX: F32.2 Major depressive disorder, single episode, severe without psychotic features (principal); E78.9 Disorder of lipoprotein metabolism, unspecified; E11.69 Type 2 diabetes mellitus with other specified complication; N52.1 Erectile dysfunction due to diseases classified elsewhere; Z91.09 Other allergy status, other than to drugs and biological substances
CPT/HCPCS: 36415; 80053; 80061; 82043; 82570; 83036; 85025

== ENCOUNTER 2023-08-15 14:24 | Outpatient (AMB) | payer OTHER, SELFPAY ==
[2023-08-15 14:27] VITALS: BP 122/70; PULSE 66; O2SAT 100; BMI 33.2
--- NOTE | 2023-08-15 14:27 | A.OFFPC_ITS ---
Vital Signs 08/15/23 14:27 Height 5 ft 5 in Weight 199 lb 6 oz BMI 33.2 BP 122/70 Blood Pressure Location Lt brachial Position Sitting Pulse 66 Pulse Source Pulse Oximeter Pulse Oximetry (%) 100 Intake Visit Reasons: Rosalinda Allergies No Known Allergies Allergy (Verified 08/15/23 14:28) Medication List - Last Reconciled 08/15/23 by Luis Leonard MD albuterol sulfate 90 mcg/actuation (ProAir HFA) 1 inh inhalation QID PRN 30 days blood sugar diagnostic (FreeStyle Lite Strips) Use to check blood sugar TIDAC blood-glucose meter (FreeStyle Lite Meter kit) Use to check blood sugar TIDAC cetirizine 10 mg PO DAILY escitalopram oxalate (Lexapro) 5 mg PO DAILY flash glucose scanning reader (Healtheo360Style Jalyn 2 [place]) Once a day flash glucose sensor (Healtheo360Style Jalyn 2 Sensor kit) As directed glipizide 10 mg PO BID 90 days lancets (Healtheo360Style Lancets) Use to check blood sugar TIDAC omeprazole 40 mg (2 x 20 mg) PO QAM 30 days tadalafil 20 mg PO DAILY PRN 30 days tadalafil 10 mg PO DAILY 90 days Tobacco use date assessed: 08/15/23 Dental Screening Dental Screen Date: 08/15/23 Did you have a dental visit in the last 12 months?: No Did you have a dental problem in the last 6 months where you did not have access to dental care?: No Was dental information given to patient?: Yes HPI Rosalinda HPI Details Patient is a 43-year-old gentleman came in today for physical examination Patient has a history of diabetes type 2, depression, allergies, chronic GERD Erectile dysfunction managed through Urology Last hemoglobin A1c 7.3 that was on 07/19/2023, patient says that his sugars has been running as high as 300 at time but he has not changed his diet I am adding Actos 15 mg once a day Patient will have another set of lab before next visit in 3 months BMI is elevated need to lose weight Flu vaccine given today Follow-up 3 months [facility] Medical History Environmental allergies Diabetes Post-COVID syndrome History of COVID-19 Erectile dysfunction Surgical History Hx of colonoscopy History of esophagogastroduodenoscopy (EGD) History of anal fissures Family History Father Diabetes Thyroid disease Mother Diabetes Social History Housing: House Are you a primary pediatric critical care nurse to a significant other at home: No Do you presently have visiting nurse or other home services: No Alcohol intake: never Patient Tobacco Use Status: Never used Tobacco e-Cigarette/Vaping Use: Never Used Substance Use Type: Marijuana service: No Current occupational status: employed Cognitive needs: No Hearing needs: No Vision needs: No Questionnaire PHQ-9 Over the last 2 weeks, how often have you been bothered by any of the following problems? 1. Little interest or pleasure in doing things: not at all 2. Feeling down, depressed, or hopeless: several days 3. Trouble falling or staying asleep, or sleeping too much: not at all 4. Feeling tired or having little energy: not at all 5. Poor appetite or overeating: not at all 6. Feeling bad about yourself - or that you are a failure or have let yourself or your family down: several days 7. Trouble concentrating on things, such as reading the newspaper or watching television: not at all 8. Moving or speaking so slowly that other people could have noticed. Or the opposite - being so fidgety or restless that you have been moving around a lot more than usual: not at all 9. Thoughts that you would be better off or of hurting yourself in some way: not at all Total score: 2 Depression Screening Interpretation: Negative Depression Screening Done: Yes 30685 - PHQ-9 Billing: Yes Source: Developed by Drs. Michael Bryan, Barbara Yu, Roger Saucedo and colleagues, with an educational vivi from [employer]. Thrive Questionnaire Date Thrive assessed: 08/15/23 I am a: Patient What is your living situation today?: I have a place to live, but I am worried about losing it in the future Within the past 12 months, did the food you bought not last and you didn't have the money to get more?: Never true Within the past 12 months, did you worry whether your food would run out before you got money to buy more?: Never true Do you have trouble paying for medicines?: Yes Do you have trouble getting transportation to medical appointments?: No Do you have trouble paying your heating and electricity bill?: Yes Do you have trouble taking care of your child, family member or friend?: No Do you have trouble with day-to-day activities such as bathing, preparing meals, shopping, managing finances, etc.?: No Are you currently unemployed and looking for a job?: No Are you interested in more education?: No Please select the resources that you would like help with: None Currently or been in a relationship where the following occur: no concerns reported THRIVE Score: 2 LORETA-7 AMB Questionnaire LORETA-7 Date LORETA - 7 assessed: 08/15/23 Feeling nervous, anxious, or on edge: 2 = More than half the days Not being able to stop or control worryin = Several days Worrying too much about different things: 1 = Several days Trouble relaxin = Several days Being so restless that it is hard to sit still: 0 = Not at all Becoming easily annoyed or irritable: 0 = Not at all Feeling afraid as if something awful might happen: 1 = Several days Total LORETA-7 score (0-4 normal; 5-9 mild; 10-14 moderate; 15-21 severe): 6 Source: Developed by Drs. Michael Bryan, Barbara Yu, Roger Saucedo and colleagues, with an educational vivi from [employer]. LORETA-7 Assessment Billing LORETA-7 Assessment Tool: LORETA-7 Assessment 87191 Review of Systems Const Denies chills, Denies fever(s) and Denies headache(s) Eyes Denies blurry vision ENT Denies headache(s), Denies nasal discharge, Denies nasal obstruction, Denies odynophagia and Denies sinus pain Card Denies chest pain at rest and Denies chest pain with activity Resp Denies cough and Denies hemoptysis GI Denies diarrhea, Denies odynophagia, Denies vomiting and Denies hematemesis Reports as per HPI Musc Denies abnormal gait Skin/Breast Reports as per HPI Neuro Denies Neuro-related abnormal movements, Denies Abnormal speech present, Denies abnormal gait, Denies headache(s) and Denies Sensory deficit (Neuro) Psych Denies mood swings and Denies paranoia Endo Reports as per HPI Lefty/Lymph Reports as per HPI Aller/Immun Reports as per HPI Physical exam (Primary Care) Vital Signs: Last Vital Signs Pulse 66 08/15/23 14:27 BP 122/70 08/15/23 14:27 Pulse Ox 100 08/15/23 14:27 BMI result Body Mass Index 33.2 Tobacco/Smoking Status: Tobacco use Status Tobacco use date assessed 08/15/23 08/15/23 14:33 Patient Tobacco Use Status Never used Tobacco 08/15/23 14:28 e-Cigarette/Vaping Use Never Used 08/15/23 14:28 PHQ-9: PHQ-9 Score PHQ-9: Total score 2 08/15/23 14:55 Depression Screening Interpretation: Negative Thrive Assessment: Date of Thrive Assessment Date Thrive assessed 08/15/23 08/15/23 14:54 Currently or been in a relationship where the following occur: no concerns reported Const General: cooperative, comfortable and no acute distress Orientation/consciousness: patient oriented x3 HENMT Head: Yes normocephalic and Yes atraumatic Eyes General: appearance normal, both eyes and all related structures Pupils: Equal, round and reactive pupils present EOM: EOMs intact bilaterally Neck Neck: Yes supple and No lymphadenopathy Thyroid: Thyroid normal Lymphatic: no lymphadenopathy noted Resp Effort & Inspection: normal respiratory effort and able to speak in complete sentences Auscultation: clear to auscultation bilaterally Cardio Heart sounds: S1 normal heart sound present and S2 normal heart sound present GI Palpation (GI): Soft to palpation and nontender Auscultation: normal bowel sounds General: Yes no CVA tenderness Back/Spine/Pelvis Back: no CVA tenderness Skin General skin exam: elasticity normal and turgor normal Neuro General: patient oriented x3 and gait normal Cranial nerves: Yes Equal, round and reactive pupils present Speech: No Abnormal speech present Sensory Exam: No Sensory deficit (Neuro) Coordination: tandem gait normal and Romberg test negative Extrem General: Yes normal exam except as noted and No edema Office Procedures Flu Questionnaire Does the patient have a severe egg allergy?: No Does the patient have severe life threatening allergies?: No Does the patient have a fever or illness today?: No Has the patient ever had Guillain-[place] Syndrome?: No Has the patient ever had any past reaction to a flu shot?: No Immunizations flu vacc [id number] 6mos up(PF) 60 mcg(15 mcgx4)/0.5 mL IM syringe Performing Provider: Luis Leonard MD Performing Location: [facility] Administered by: Antonella Almazan CMA on 08/15/23 14:55 Dose Route Admin Location Dispensed Lot Number Expiration Date NDC Extension Service Advisor 0.5 mL IM Left Deltoid 0.5 mL [id number] 01/25/24 [id number] [employer] VIS Given Date VIS Provided VIS Publication Date 08/15/23 Single Vaccine 21 Eligibility Eligibility Date Funding Source Not VFC Eligible 08/15/23 Private Assessment and Plan Assessment & Plan (1) Encounter for general adult medical examination with abnormal findings: Code(s): Z00.01 - Encounter for general adult medical examination with abnormal findings (2) Obesity due to excess calories: Comment: If your BMI is between 25 and 29.9, you are overweight. If your BMI is 30 or greater, you are obese. ___ Being obese is a problem, because it increases the risks of many different health problems. It can also make it hard for you to move, breathe, and do other things that people who are at a healthy weight can do easily. Plus, being obese can be hard emotionally. ___ What are the health risks of being obese? Being obese increases a persons risk of developing many health problems. Here are just a few examples: __ Diabetes High blood pressure, High cholesterol, Heart disease (including heart attacks) Stroke, Sleep apnea (a disorder in which you stop breathing for short periods while asleep) Asthma, Cancer __ Does being obese shorten a persons life? Yes. Studies show that people who are obese younger than people who are a healthy weight. They also show that the risk of goes up the heavier a person is. The degree of increased risk depends on how long the person has been obese, and on what other medical problem s he or she has. , Reduce your carbohydrate intake and choose carbs that are complex. Remember as a general rule of thumb, avoid highly processed foods. If it's white and soft, it's probably been stripped of its nutritional value. Change white bread to whole wheat bread, white rice to brown rice, white potatoes to sweet potatoes, white pasta to whole wheat pasta. Monitor portion sizes too: protein should be no bigger than your fist. Limit your red meat intake to only once or twice a wk. Eat more white meat but make sure to avoid creamy sauces etc. Broiling, baking or grilling is best. Increase dark, green leafy vegetables and fruits. Code(s): E66.09 - Other obesity due to excess calories Qualifiers: Body mass index: BMI 33.0-33.9 Obesity classification: adult class 1 (BMI 30 - 34.9) Serious obesity comorbidity presence: with serious comorbidity Qualified Code(s): E66.09 - Other obesity due to excess calories; Z68.33 - Body mass index [BMI] 33.0-33.9, adult (3) Major depressive disorder, severe: Code(s): F32.2 - Major depressive disorder, single episode, severe without psychotic features (4) Erectile dysfunction associated with type 2 diabetes mellitus: Code(s): E11.69 - Type 2 diabetes mellitus with other specified complication; N52.1 - Erectile dysfunction due to diseases classified elsewhere (5) Diabetes 1.5, managed as type 2: Code(s): E13.9 - Other specified diabetes mellitus without complications (6) Environmental allergies: Code(s): Z91.09 - Other allergy status, other than to drugs and biological substances (7) Lipid disorder: Code(s): E78.9 - Disorder of lipoprotein metabolism, unspecified (8) IBS (irritable bowel syndrome): Code(s): K58.9 - Irritable bowel syndrome without diarrhea Qualifiers: Irritable bowel syndrome type: with both diarrhea and constipation Qualified Code(s): K58.2 - Mixed irritable bowel syndrome Plan Patient is a 43-year-old gentleman came in today for physical examination Patient has a history of diabetes type 2, depression, allergies, chronic GERD Erectile dysfunction managed through Urology Last hemoglobin A1c 7.3 that was on 07/19/2023, patient says that his sugars has been running as high as 300 at time but he has not changed his diet I am adding Actos 15 mg once a day Patient will have another set of lab before next visit in 3 months BMI is elevated need to lose weight Flu vaccine given today Follow-up 3 months Orders: Orders Complete Blood Count Auto Diff Today E13.9 - Other specified diabetes mellitus without complications, E78.9 - Disorder of lipoprotein metabolism, unspecified, F32.2 - Major depressive disorder, single episode, severe without psychotic features Comprehensive Met. Panel Today E13.9 - Other specified diabetes mellitus without complications, E78.9 - Disorder of lipoprotein metabolism, unspecified, F32.2 - Major depressive disorder, single episode, severe without psychotic features Hemoglobin A1c Today E13.9 - Other specified diabetes mellitus without complications, E78.9 - Disorder of lipoprotein metabolism, unspecified, F32.2 - Major depressive disorder, single episode, severe without psychotic features Microalbumin, Random (w Creat) Today E13.9 - Other specified diabetes mellitus without complications, E78.9 - Disorder of lipoprotein metabolism, unspecified, F32.2 - Major depressive disorder, single episode, severe without psychotic features LDL Cholesterol Direct Today E13.9 - Other specified diabetes mellitus without complications, E78.9 - Disorder of lipoprotein metabolism, unspecified, F32.2 - Major depressive disorder, single episode, severe without psychotic features Influenza [id number] Immunization Today Z23 - Encounter for immunization Medications: New pioglitazone (Actos) 15 mg PO DAILY 30 tabs 0RF Coding Level of Care Code Est Pt Prev Care 40-64y(30652) Diagnoses Encounter for general adult medical examination with abnormal findings Z00.01 Class 1 obesity due to excess calories with serious comorbidity and body mass index (BMI) of 33.0 to 33.9 in adult E66.09; Z68.33 Body mass index: BMI 33.0-33.9 Obesity classification: adult class 1 (BMI 30 - 34.9) Serious obesity comorbidity presence: with serious comorbidity Major depressive disorder, severe F32.2 Erectile dysfunction associated with type 2 diabetes mellitus E11.69; N52.1 Diabetes 1.5, managed as type 2 E13.9 Environmental allergies Z91.09 Lipid disorder E78.9 Irritable bowel syndrome with both constipation and diarrhea K58.2 Irritable bowel syndrome type: with both diarrhea and constipation Additional Codes LORETA-7 Assessment Billing - LORETA-7 Assessment Tool: LORETA-7 Assessment [id number] ([id number])
== END 2023-08-15 15:25 | disposition home or self-care (01) ==
PROVIDERS: PCP Internal Medicine; Visit Provider Internal Medicine
DX: Z00.00 Encounter for general adult medical examination without abnormal findings (principal); F32.2 Major depressive disorder, single episode, severe without psychotic features; E13.9 Other specified diabetes mellitus without complications; Z23 Encounter for immunization; E11.69 Type 2 diabetes mellitus with other specified complication; Z68.33 Body mass index [BMI] 33.0-33.9, adult; E66.09 Other obesity due to excess calories; N52.1 Erectile dysfunction due to diseases classified elsewhere; Z91.09 Other allergy status, other than to drugs and biological substances; E78.9 Disorder of lipoprotein metabolism, unspecified; K58.2 Mixed irritable bowel syndrome
CPT/HCPCS: 90471; 90686; 99396

== ENCOUNTER 2023-08-29 10:11 | Outpatient (AMB) | payer OTHER, SELFPAY ==
[2023-08-29 10:15] VITALS: BP 124/78; PULSE 69; TEMP 37.1; O2SAT 99; BMI 33.9
--- NOTE | 2023-08-29 10:15 | MHC.OFFWIV ---
Intake Vital Signs 08/29/23 10:15 Height 5 ft 5 in Weight 204 lb BMI 33.9 BP 124/78 Blood Pressure Location Lt brachial Position Sitting Pulse 69 Pulse Source Pulse Oximeter Temp 98.7 F Temp Source Temporal Artery Scan Pulse Oximetry (%) 99 Oxygen Delivery Method Room Air Intake Visit Reasons: EP ?Sinus infection/[facility] [phone] Intake Note: pt is here today for sinus infection and pink eye started friday Patient Tobacco Use Status: Never used Tobacco Allergies No Known Allergies Allergy (Verified 08/29/23 10:16) Do you need a note to return to daycare/school/sports/work: Yes HPI HPI Comments History of Present Illness Details 43 y/o male patient presents to walk in clinic with c/o Sinus pressure and pink eye since Friday. He reports right ear pain but denies discharge. [facility] Medical History Environmental allergies Diabetes Post-COVID syndrome History of COVID-19 Erectile dysfunction Surgical History Hx of colonoscopy History of esophagogastroduodenoscopy (EGD) History of anal fissures Family History Father Diabetes Thyroid disease Mother Diabetes Social History Housing: House Are you a primary care director rn to a significant other at home: No Do you presently have visiting nurse or other home services: No Alcohol intake: never Patient Tobacco Use Status: Never used Tobacco e-Cigarette/Vaping Use: Never Used Substance Use Type: Marijuana service: No Current occupational status: employed Cognitive needs: No Hearing needs: No Vision needs: No Review of Systems Const All systems reviewed & are unremarkable except as noted in HPI and below Physical Exam Vital Signs: Last Vital Signs Temp 98.7 F 08/29/23 10:15 Pulse 69 08/29/23 10:15 BP 124/78 08/29/23 10:15 Pulse Ox 99 08/29/23 10:15 Oxygen Delivery Method Room Air 08/29/23 10:15 BMI result Body Mass Index 33.9 Const General: comfortable HEENT Head: Yes normocephalic Ears: external ears normal, TM normal on the left and TM abnormal (right ear) wth effusion and erythematous General nose exam: Abnormal mucous membranes and turbinates present boggy and erythematous and Nasal discharge present Face and sinus: Yes sinuses nontender Mouth: Abnormal oral and palatal mucosa present erythematous; not edematous and no hematomas Throat: Yes postnasal drainage Resp Effort & Inspection: normal respiratory effort Auscultation: clear to auscultation bilaterally Cardio Rate: regular rate Rhythm: regular rhythm Assessment & Plan Assessment & Plan (1) Acute atopic conjunctivitis of right eye: Code(s): H10.11 - Acute atopic conjunctivitis, right eye Plan: - Wash eye with clean water no soap- - Abx opth (2) Otogenic otalgia of right ear: Code(s): H92.01 - Otalgia, right ear Plan: - Acetaminophen for pain - Otic Abx Orders: Orders SARS-CoV2/FLU/RSV Today J06.9 - Acute upper respiratory infection, unspecified Medications: New ciprofloxacin-hydrocortisone 0.2-1 % 3 drps otic (ear) left BID 7 days 20 mL 0RF H92.01 - Otalgia, right ear erythromycin 1 appl ophthalmic (eye) DAILY 7 days 50 grams 0RF H10.11 - Acute atopic conjunctivitis, right eye Coding Level of Care Code Est Pt Level 3 (71050) Diagnoses Acute atopic conjunctivitis of right eye H10.11 Otogenic otalgia of right ear H92.01 Time Spent (min) 15
== END 2023-08-29 11:21 | disposition home or self-care (01) ==
PROVIDERS: PCP Internal Medicine; Visit Provider Nurse Practitioner Family
DX: H10.11 Acute atopic conjunctivitis, right eye (principal); H92.01 Otalgia, right ear
CPT/HCPCS: 99213

== ENCOUNTER 2023-11-17 08:55 | Outpatient (REF) | payer OTHER, SELFPAY ==
[2023-11-17 10:18] LABS: MANUAL DIFF FLAG NO
[2023-11-17 10:32] LABS: Basophils Absolute Auto 0.1 X10*3/uL (0.0-0.2); Basophils Percent Auto 0.7 % (0-2); Eosinophils Absolute Auto 0.2 X10*3/uL (0.0-0.4); Hematocrit 41.7 % (42.0-52.0); Hemoglobin 14.9 g/dl (14.0-18.0); Imm Gran Abs Auto 0.03 X10*3/uL (0.00-0.03); Imm Gran Pct Auto 0.4 % (0.0-0.4); Lymphocytes Absolute Auto 2.2 X10*3/uL (1.2-4.9); Lymphocytes Percent Auto 31.5 % (20-40); Mean Corpuscular HGB Conc 35.7 g/dl (31.0-36.0); Mean Corpuscular Hemoglobin 30.7 pg (27.0-33.0); Mean Platelet Volume 10.9 fL (9.4-12.4); Monocytes Absolute Auto 0.4 X10*3/uL (0.1-1.2); Monocytes Percent Auto 6.2 % (2-11); Neutrophils Absolute Auto 4.1 x10*3/uL (2.0-8.3); Neutrophils Percent Auto 58.2 % (45-73); Platelet Count 196 X10*3/uL (160-400); Red Blood Count 4.85 X10*6/uL (4.60-5.80); Red Cell Distribution Width 12.5 % (11.0-16.0)
[2023-11-17 10:40] LABS: Estimated Average Glucose 192 mg/dL; Hemoglobin A1c % 8.3 % (<6.0)
[2023-11-17 10:57] LABS: Creatinine Urine 154.54 mg/dL; Microalbum/Creatinine Ratio Ur 35.5 ug/mg cr (<30)
[2023-11-17 11:05] LABS: Alanine Aminotransferase 36 U/L (0-40); Albumin Level 4.2 g/dL (3.5-5.0); Alkaline Phosphatase 38 U/L (39-117); Anion Gap 8 (12-20); Aspartate Amino Transferase 21 U/L (5-37); Bilirubin Total 1.2 mg/dL (0.0-1.0); Blood Urea Nitrogen 16 mg/dL (9-16); Calcium 9.1 mg/dL (8.4-10.2); Carbon Dioxide 29 mmol/L (22-29); Chloride 106 mmol/L (96-108); Estimated Glomerular Filt Rate > 60; Glucose Random 190 mg/dL (60-115); Potassium 3.6 mmol/L (3.3-5.1); Sodium 139 mmol/L (135-145); Total Protein 6.8 g/dL (6.5-8.0)
[2023-11-18 16:03] LABS: LDL Cholesterol Direct 156 mg/dL (<100)
== END 2023-11-17 08:56 | disposition home or self-care (01) ==
LOC: HO.HMGCLDS 08:55
PROVIDERS: PCP Internal Medicine; Visit Provider Internal Medicine
DX: E13.9 Other specified diabetes mellitus without complications (principal); F32.2 Major depressive disorder, single episode, severe without psychotic features; E78.9 Disorder of lipoprotein metabolism, unspecified
CPT/HCPCS: 36415; 80053; 82043; 82570; 83036; 83721; 85025

== ENCOUNTER 2023-11-25 10:16 | Outpatient (AMB) | payer OTHER, SELFPAY ==
--- NOTE | 2023-11-25 10:17 | MHC.OFFVIS ---
Intake Visit Reasons: 6m follow up Intake Note: Patient is Present for Telephone Follow Up Urology Med: Tadalafil Antibiotic Allergy: None Blood Thinner:None Allergies No Known Allergies Allergy (Verified 08/29/23 10:16) HPI Comments Details: Aguilar is a pleasant male. . He is a patient of Dr. Leonard . He is seen for the following urologic conditions - erectile dysfunction - penile skin tag Telemedicine Evaluation 15 min Consultation [employer] Video attempted 6m f/u Has been on 10 mg daily tadalafil with 20 mg on demand plus constriction band - relatively good response Longstanding poorly controlled diabetes - glipizide,actos Also has small skin tag on sulcus of penis. Would like to have this removed. Can be done in office. Erectile Dysfunction with type 2 diabetes He presents today for - further evaluation erectile dysfunction Current treatment includes - daily tadalafil 5 mg with 20 mg on demand At the time of initial evaluation he experiences - erections are partial inadequate for vaginal penetration - undergo rapid detumescence Symptoms have been present for/since - progressive over past 18 months Nocturnal erections occasionally occur Prior therapies include - none Treatment side effects include - none Associated Medical Conditions include diabetes, dyslipidemia Physical Performance Status is able to walk 200 yd and can ascend 2 flights of stairs easily without breathlessness Atherosclerosis Cardiovascular Disease Risk - 11/17 HbA1c 6.6, cholesterol 203 Medications include(s) glipizide Overall - has been seen positive affects Therapeutic plan includes - Trial maximal therapy PFSH Medical History Environmental allergies Diabetes Post-COVID syndrome History of COVID-19 Erectile dysfunction Surgical History Hx of colonoscopy History of esophagogastroduodenoscopy (EGD) History of anal fissures Family History Father Diabetes Thyroid disease Mother Diabetes Social History Housing: House Are you a primary healthcare economics manager to a significant other at home: No Do you presently have visiting nurse or other home services: No Alcohol intake: never Patient Tobacco Use Status: Never used Tobacco e-Cigarette/Vaping Use: Never Used Substance Use Type: Marijuana service: No Current occupational status: employed Cognitive needs: No Hearing needs: No Vision needs: No Review of Systems Const All systems reviewed & are unremarkable except as noted in HPI and below Reports no additional complaints Resp Reports no additional complaints GI Reports no additional complaints Reports as per HPI Musc Reports no additional complaints Physical Exam Telemedicine evaluation Appropriate responses Regular breathing rate and rhythm HEENT Head: Yes normal to inspection Ears: hearing grossly normal bilaterally Eyes General: appearance normal, both eyes and all related structures Neck Neck: Yes normal visual inspection Chest Chest palpation & inspection: normal inspection of the chest Resp Effort & Inspection: normal respiratory effort and able to speak in complete sentences Telehealth Telehealth Location of provider rendering services: practice address Location of patient: address on file Patient Identification confirmed using: Name, : Yes Telehealth method: video Patient verbally consented to treatment: Yes Patient verbally consented to billing insurance company: Yes Patient informed of any privacy concerns related to visit: Yes Minutes spent on Phone/Video with Pt.: 15 Assessment & Plan Assessment & Plan (1) Erectile dysfunction associated with type 2 diabetes mellitus: Code(s): E11.69 - Type 2 diabetes mellitus with other specified complication; N52.1 - Erectile dysfunction due to diseases classified elsewhere Category: Medical (2) Skin tag, acquired: Code(s): L91.8 - Other hypertrophic disorders of the skin Category: Medical Plan Plan small outpatient procedure in office for skin tag removal Patient Instructions: Imaging studies, laboratory and physical exam results were discussed and reviewed in detail. No major barriers to patient understanding were identified. An opportunity to ask questions regarding the treatment plan was provided. All questions were answered. The patient expressed understanding and agreement with the above treatment plan. The patient is aware they should contact our office by phone for worsening of their current condition or the appearance of new urologic symptoms. Compliance is encouraged with any medications and followup testing that is ordered. It is a privilege to participate in the urologic care of your patient. If you have any questions or concerns regarding treatment for the above conditions, or other urologic issues, please do not hesitate to contact me. The office telephone contact is [phone]. This note is constructed using voice recognition software. While every effort has been made to ensure accuracy inkjet operator errors may have been included. Yours sincerely, Dr James Khanna MD, [facility] - Urology Providers of Expert, Compassionate Care for the Genitourinary System Coding Level of Care Code Tele Est Pt Level 4 (54649) Diagnoses Erectile dysfunction associated with type 2 diabetes mellitus E11.69; N52.1 Skin tag, acquired L91.8
== END 2023-11-25 11:32 | disposition home or self-care (01) ==
LOC: HO.HUSH 10:16
PROVIDERS: PCP Internal Medicine; Visit Provider Urology
DX: E11.69 Type 2 diabetes mellitus with other specified complication (principal); N52.1 Erectile dysfunction due to diseases classified elsewhere; L91.8 Other hypertrophic disorders of the skin
CPT/HCPCS: 99214

== ENCOUNTER → 2023-11-25 10:16 | Outpatient (BNVA) | payer OTHER, SELFPAY | PROVIDERS: PCP Internal Medicine; Visit Provider Urology ==

== ENCOUNTER 2023-11-25 10:45 | Outpatient (AMB) | payer OTHER, SELFPAY ==
[2023-11-25 10:46] VITALS: BP 146/78; PULSE 64; O2SAT 99; BMI 35.0
--- NOTE | 2023-11-25 10:46 | MHC.PC.OV ---
Vital Signs 11/25/23 10:46 Height 5 ft 5 in Weight 210 lb 4 oz BMI 35.0 BP 146/78 H Blood Pressure Location Rt brachial Position Sitting Pulse 64 Pulse Source Pulse Oximeter Pulse Oximetry (%) 99 Oxygen Delivery Method Room Air Intake Visit Reasons: 3 Month follow up Allergies No Known Allergies Allergy (Verified 11/25/23 10:49) Medication List - Last Reconciled 11/25/23 by Luis Leonard MD albuterol sulfate 90 mcg/actuation (ProAir HFA) 1 inh inhalation QID PRN 30 days blood sugar diagnostic (FreeStyle Lite Strips) Use to check blood sugar TIDAC blood-glucose meter (FreeStyle Lite Meter kit) Use to check blood sugar TIDAC cetirizine 10 mg PO DAILY escitalopram oxalate (Lexapro) 5 mg PO DAILY flash glucose scanning reader ([employer] GlobalStyle [place] [address] [place]) Once a day flash glucose sensor ([employer] GlobalStyle Jalyn 2 Sensor kit) As directed glipizide 10 mg PO BID 90 days lancets ([employer] GlobalStyle Lancets) Use to check blood sugar TIDAC omeprazole 40 mg (2 x 20 mg) PO QAM 30 days pioglitazone (Actos) 15 mg PO DAILY tadalafil 10 mg PO DAILY 90 days Tobacco use date assessed: 11/25/23 Dental Screening Dental Screen Date: 11/25/23 Did you have a dental visit in the last 12 months?: No Did you have a dental problem in the last 6 months where you did not have access to dental care?: No Was dental information given to patient?: Patient has dentist HPI 3 Month follow up HPI Details Patient is a 43-year-old gentleman came in today for his regular follow-up appointment Labs done recently revealed hemoglobin A1c of 8.3% He is taking glipizide 10 mg b.i.d. and Actos 15 mg, I am increasing the Actos to 45 mg, we will repeat hemoglobin A1c in 3 months Blood pressure is elevated today, patient says that he was nervous coming here, previously his blood pressure has been within normal range August of this year Allergies are stable with cetirizine GERD is stable with omeprazole 40 mg Lipid disorder: Continue diet Patient is seeing Urology for erectile dysfunction. BMI is elevated need to lose weight Follow-up 3 months [facility] Medical History Environmental allergies Diabetes Post-COVID syndrome History of COVID-19 Erectile dysfunction Surgical History Hx of colonoscopy History of esophagogastroduodenoscopy (EGD) History of anal fissures Family History Father Diabetes Thyroid disease Mother Diabetes Social History Housing: House Are you a primary resident care aid to a significant other at home: No Do you presently have visiting nurse or other home services: No Alcohol intake: never Patient Tobacco Use Status: Never used Tobacco e-Cigarette/Vaping Use: Never Used Substance Use Type: Marijuana service: No Current occupational status: employed Cognitive needs: No Hearing needs: No Vision needs: No Questionnaire PHQ-9 Over the last 2 weeks, how often have you been bothered by any of the following problems? 1. Little interest or pleasure in doing things: not at all 2. Feeling down, depressed, or hopeless: not at all 3. Trouble falling or staying asleep, or sleeping too much: not at all 4. Feeling tired or having little energy: not at all 5. Poor appetite or overeating: not at all 6. Feeling bad about yourself - or that you are a failure or have let yourself or your family down: not at all 7. Trouble concentrating on things, such as reading the newspaper or watching television: not at all 8. Moving or speaking so slowly that other people could have noticed. Or the opposite - being so fidgety or restless that you have been moving around a lot more than usual: not at all 9. Thoughts that you would be better off or of hurting yourself in some way: not at all Total score: 0 Depression Screening Interpretation: Negative Depression Screening Done: Yes 72785 - PHQ-9 Billing: Yes Source: Developed by Drs. Michael Bryan, Barbara Yu, Roger Saucedo and colleagues, with an educational vivi from [employer]. Thrive Questionnaire Date Thrive assessed: 11/25/23 I am a: Patient What is your living situation today?: I have a steady place to live Within the past 12 months, did the food you bought not last and you didn't have the money to get more?: Never true Within the past 12 months, did you worry whether your food would run out before you got money to buy more?: Never true Do you have trouble paying for medicines?: Yes Do you have trouble getting transportation to medical appointments?: No Do you have trouble paying your heating and electricity bill?: No Do you have trouble taking care of your child, family member or friend?: No Do you have trouble with day-to-day activities such as bathing, preparing meals, shopping, managing finances, etc.?: No Are you currently unemployed and looking for a job?: No Are you interested in more education?: No Please select the resources that you would like help with: None Currently or been in a relationship where the following occur: no concerns reported THRIVE Score: 0 AUDIT C Alcohol Use Questionnaire (AUDIT-C) 1. How often do you have a drink containing alcohol?: Never 3. How often do you have six or more drinks on one occasion?: Never Total Score: 0 Score Reviewed/Action Taken: Yes LORETA-7 AMB Questionnaire LORETA-7 Date LORETA - 7 assessed: 11/25/23 Feeling nervous, anxious, or on edge: 0 = Not at all Not being able to stop or control worryin = Not at all Worrying too much about different things: 0 = Not at all Trouble relaxin = Not at all Being so restless that it is hard to sit still: 0 = Not at all Becoming easily annoyed or irritable: 0 = Not at all Feeling afraid as if something awful might happen: 0 = Not at all Total LORETA-7 score (0-4 normal; 5-9 mild; 10-14 moderate; 15-21 severe): 0 Source: Developed by Drs. Michael Bryan, Barbara Yu, Roger Saucedo and colleagues, with an educational vivi from [employer]. LORETA-7 Assessment Billing LORETA-7 Assessment Tool: LORETA-7 Assessment 87752 Review of Systems Const Denies chills and Denies fever(s) ENT Denies epistaxis and Denies nasal discharge Card Denies chest pain Resp Denies chest congestion, Denies cough and Denies hemoptysis GI Denies diarrhea and Denies nausea Skin/Breast Denies rash Neuro Reports no additional complaints Psych Reports no additional complaints Endo Reports no additional complaints Physical exam (Primary Care) Vital Signs: Last Vital Signs Pulse 64 11/25/23 10:46 BP 146/78 H 11/25/23 10:46 Pulse Ox 99 11/25/23 10:46 Oxygen Delivery Method Room Air 11/25/23 10:46 BMI result Body Mass Index 35.0 Tobacco/Smoking Status: Tobacco use Status Tobacco use date assessed 11/25/23 11/25/23 10:52 Patient Tobacco Use Status Never used Tobacco 11/25/23 10:48 e-Cigarette/Vaping Use Never Used 11/25/23 10:48 Depression Screening Interpretation: Negative Thrive Assessment: Date of Thrive Assessment Date Thrive assessed 08/15/23 11/25/23 10:48 Currently or been in a relationship where the following occur: no concerns reported Const General: cooperative, comfortable and no acute distress Orientation/consciousness: patient oriented x3 HENMT Head: Yes normocephalic Eyes General: appearance normal, both eyes and all related structures Neck Neck: Yes supple Resp Effort & Inspection: normal respiratory effort, no cough and no stridor Cardio Rhythm: regular rhythm Heart sounds: S1 normal heart sound present and S2 normal heart sound present Skin General skin exam: turgor normal Neuro General: patient oriented x3, tone normal and moves all extremities Extrem Right lower extremity: no edema Left lower extremity: no edema Assessment and Plan Assessment & Plan (1) Diabetes 1.5, managed as type 2: Code(s): E13.9 - Other specified diabetes mellitus without complications (2) Environmental allergies: Code(s): Z91.09 - Other allergy status, other than to drugs and biological substances (3) Lipid disorder: Code(s): E78.9 - Disorder of lipoprotein metabolism, unspecified (4) IBS (irritable bowel syndrome): Code(s): K58.9 - Irritable bowel syndrome without diarrhea Qualifiers: Irritable bowel syndrome type: with both diarrhea and constipation Qualified Code(s): K58.2 - Mixed irritable bowel syndrome (5) Chronic GERD: Code(s): K21.9 - Gastro-esophageal reflux disease without esophagitis (6) Erectile dysfunction associated with type 2 diabetes mellitus: Code(s): E11.69 - Type 2 diabetes mellitus with other specified complication; N52.1 - Erectile dysfunction due to diseases classified elsewhere (7) Obesity due to excess calories: Comment: If your BMI is between 25 and 29.9, you are overweight. If your BMI is 30 or greater, you are obese. ___ Being obese is a problem, because it increases the risks of many different health problems. It can also make it hard for you to move, breathe, and do other things that people who are at a healthy weight can do easily. Plus, being obese can be hard emotionally. ___ What are the health risks of being obese? Being obese increases a persons risk of developing many health problems. Here are just a few examples: __ Diabetes High blood pressure, High cholesterol, Heart disease (including heart attacks) Stroke, Sleep apnea (a disorder in which you stop breathing for short periods while asleep) Asthma, Cancer __ Does being obese shorten a persons life? Yes. Studies show that people who are obese younger than people who are a healthy weight. They also show that the risk of goes up the heavier a person is. The degree of increased risk depends on how long the person has been obese, and on what other medical problems he or she has. , Reduce your carbohydrate intake and choose carbs that are complex. Remember as a general rule of thumb, avoid highly processed foods. If it's white and soft, it's probably been stripped of its nutritional value. Change white bread to whole wheat bread, white rice to brown rice, white potatoes to sweet potatoes, white pasta to whole wheat pasta. Monitor portion sizes too: protein should be no bigger than your fist. Limit your red meat intake to only once or twice a wk. Eat more white meat but make sure to avoid creamy sauces etc. Broiling, baking or grilling is best. Increase dark, green leafy vegetables and fruits. Code(s): E66.09 - Other obesity due to excess calories Qualifiers: Body mass index: BMI 33.0-33.9 Obesity classification: adult class 1 (BMI 30 - 34.9) Serious obesity comorbidity presence: with serious comorbidity Qualified Code(s): E66.09 - Other obesity due to excess calories; Z68.33 - Body mass index [BMI] 33.0-33.9, adult Plan Patient is a 43-year-old gentleman came in today for his regular follow-up appointment Labs done recently revealed hemoglobin A1c of 8.3% He is taking glipizide 10 mg b.i.d. and Actos 15 mg, I am increasing the Actos to 45 mg, we will repeat hemoglobin A1c in 3 months Blood pressure is elevated today, patient says that he was nervous coming here, previously his blood pressure has been within normal range August of this year Allergies are stable with cetirizine GERD is stable with omeprazole 40 mg Lipid disorder: Continue diet Patient is seeing Urology for erectile dysfunction. BMI is elevated need to lose weight Follow-up 3 months Medications: Changed From pioglitazone (Actos) 15 mg PO DAILY 30 tabs 0RF To pioglitazone 45 mg PO DAILY 90 tabs 0RF Coding Level of Care Code Est Pt Level 4 (89417) Diagnoses Diabetes 1.5, managed as type 2 E13.9 Environmental allergies Z91.09 Lipid disorder E78.9 Irritable bowel syndrome with both constipation and diarrhea K58.2 Irritable bowel syndrome type: with both diarrhea and constipation Chronic GERD K21.9 Erectile dysfunction associated with type 2 diabetes mellitus E11.69; N52.1 Class 1 obesity due to excess calories with serious comorbidity and body mass index (BMI) of 33.0 to 33.9 in adult E66.09; Z68.33 Body mass index: BMI 33.0-33.9 Obesity classification: adult class 1 (BMI 30 - 34.9) Serious obesity comorbidity presence: with serious comorbidity Additional Codes LORETA-7 Assessment Billing - LORETA-7 Assessment Tool: LORETA-7 Assessment [id number] ([id number])
== END 2023-11-25 11:03 | disposition home or self-care (01) ==
PROVIDERS: PCP Internal Medicine; Visit Provider Internal Medicine
DX: E11.69 Type 2 diabetes mellitus with other specified complication (principal); Z91.09 Other allergy status, other than to drugs and biological substances; E78.9 Disorder of lipoprotein metabolism, unspecified; K58.2 Mixed irritable bowel syndrome; K21.9 Gastro-esophageal reflux disease without esophagitis; N52.1 Erectile dysfunction due to diseases classified elsewhere; E66.09 Other obesity due to excess calories; Z68.33 Body mass index [BMI] 33.0-33.9, adult
CPT/HCPCS: 99214

== ENCOUNTER 2024-02-10 14:29 | Outpatient (AMB) | payer OTHER, SELFPAY ==
--- NOTE | 2024-02-10 15:13 | MHC.OFFVIS ---
Intake Visit Reasons: removal of skin tag Intake Note: Patient is present for skin tag removal Allergies No Known Allergies Allergy (Verified 11/25/23 10:49) HPI Comments Details: Aguilar is a pleasant male. . He is a patient of Dr. Leonard . He is seen for the following urologic conditions - erectile dysfunction - penile skin tag Here for removal of penile skin tag Small skin tag on penile sulcus Second small lesion on base of penile dorsum These were removed today in office Prepped with betadine Local anesthetic placed in 2 locations Sharp dissection of each lesion (both < 0.5cm) Cautery used in each location CPT 02416 x 2 lesions Erectile Dysfunction with type 2 diabetes He presents today for - further evaluation erectile dysfunction Current treatment includes - daily tadalafil 5 mg with 20 mg on demand At the time of initial evaluation he experiences - erections are partial inadequate for vaginal penetration - undergo rapid detumescence Symptoms have been present for/since - progressive over past 18 months Nocturnal erections occasionally occur Prior therapies include - none Treatment side effects include - none Associated Medical Conditions include diabetes, dyslipidemia Physical Performance Status is able to walk 200 yd and can ascend 2 flights of stairs easily without breathlessness Atherosclerosis Cardiovascular Disease Risk - 11/17 HbA1c 6.6, cholesterol 203 Medications include(s) glipizide Overall - has been seen positive affects Therapeutic plan includes - Trial maximal therapy PFSH Medical History Environmental allergies Diabetes Post-COVID syndrome History of COVID-19 Erectile dysfunction Surgical History Hx of colonoscopy History of esophagogastroduodenoscopy (EGD) History of anal fissures Family History Father Diabetes Thyroid disease Mother Diabetes Social History Housing: House Are you a primary rn managed care to a significant other at home: No Do you presently have visiting nurse or other home services: No Alcohol intake: never Patient Tobacco Use Status: Never used Tobacco e-Cigarette/Vaping Use: Never Used Substance Use Type: Marijuana service: No Current occupational status: employed Cognitive needs: No Hearing needs: No Vision needs: No Review of Systems Const Denies chills and Denies fever(s) Card Reports no additional complaints and Denies syncope Resp Denies cough GI Denies abdominal pain and Denies heartburn Reports as per HPI and Denies change in libido Neuro Denies syncope Psych Denies change in libido Endo Denies change in libido Physical Exam Const General: cooperative, healthy appearing, comfortable and no acute distress Orientation/consciousness: patient oriented x3 HEENT Face and sinus: Yes normal facial exam Mouth: moist mucous membranes Neck Neck: Yes normal visual inspection, Yes full ROM and Yes trachea midline Chest Chest palpation & inspection: normal inspection of the chest Resp Effort & Inspection: normal respiratory effort, able to speak in complete sentences and no respiratory distress GI Inspection: Yes normal to inspection Back/Spine/Pelvis Cervical Spine: normal cervical lordosis Thoracic/Lumbar Spine: thoracic and lumbar spine normal to inspection Skin General skin exam: no rashes or lesions noted Neuro General: patient oriented x3, gait normal, tone normal and moves all extremities Extrem General: Yes normal to inspection and Yes capillary refill normal Office Procedures Skin Tag Removal Details: see above Skin tag removal performed by: James Khanna Informed consent given: Yes Consent signed: Yes Location: other (penis - sulcus and dorsum) Preparation: betadine Hemostasis: electrocautery Patient tolerated procedure: well Complications: No Assessment & Plan Assessment & Plan (1) Skin tag, acquired: Code(s): L91.8 - Other hypertrophic disorders of the skin Category: Medical Plan Six-month follow-up Patient Instructions: Imaging studies, laboratory and physical exam results were discussed and reviewed in detail. No major barriers to patient understanding were identified. An opportunity to ask questions regarding the treatment plan was provided. All questions were answered. The patient expressed understanding and agreement with the above treatment plan. The patient is aware they should contact our office by phone for worsening of their current condition or the appearance of new urologic symptoms. Compliance is encouraged with any medications and followup testing that is ordered. It is a privilege to participate in the urologic care of your patient. If you have any questions or concerns regarding treatment for the above conditions, or other urologic issues, please do not hesitate to contact me. The office telephone contact is [phone]. This note is constructed using voice recognition software. While every effort has been made to ensure accuracy diesel technician errors may have been included. Yours sincerely, Dr James Khanna MD, [facility] - Urology Providers of Expert, Compassionate Care for the Genitourinary System Coding Level of Care Code Procedure Only Diagnoses Skin tag, acquired L91.8
== END 2024-02-10 15:37 | disposition home or self-care (01) ==
PROVIDERS: PCP Internal Medicine; Visit Provider Urology
DX: L91.8 Other hypertrophic disorders of the skin (principal)
CPT/HCPCS: 54060

== ENCOUNTER → 2024-02-10 14:29 | Outpatient (BNVA) | payer OTHER, SELFPAY | PROVIDERS: PCP Internal Medicine; Visit Provider Urology | DX: L91.8 Other hypertrophic disorders of the skin (principal) | CPT/HCPCS: 54060 ==

== ENCOUNTER 2024-03-05 09:33 | Outpatient (AMB) | payer OTHER, SELFPAY ==
[2024-03-05 09:37] VITALS: BP 162/94; PULSE 68; O2SAT 98; BMI 35.1
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
== END 2024-03-05 10:03 | disposition home or self-care (01) ==
PROVIDERS: PCP Internal Medicine; Visit Provider Internal Medicine
DX: I10 Essential (primary) hypertension (principal); F32.2 Major depressive disorder, single episode, severe without psychotic features; E11.69 Type 2 diabetes mellitus with other specified complication; K21.9 Gastro-esophageal reflux disease without esophagitis; Z91.09 Other allergy status, other than to drugs and biological substances; E78.9 Disorder of lipoprotein metabolism, unspecified; K58.2 Mixed irritable bowel syndrome; N52.1 Erectile dysfunction due to diseases classified elsewhere; E66.09 Other obesity due to excess calories; Z68.33 Body mass index [BMI] 33.0-33.9, adult
CPT/HCPCS: 83036; 99214

== ENCOUNTER 2024-06-02 11:44 | Outpatient (REF) | payer OTHER, SELFPAY ==
[2024-06-02 13:14] LABS: MANUAL DIFF FLAG NO
[2024-06-02 13:25] LABS: Basophils Percent Auto 0.4 % (0-2); Eosinophils Absolute Auto 0.4 X10*3/uL (0.0-0.4); Eosinophils Percent Auto 5.8 % (0-4); Hematocrit 42.6 % (42.0-52.0); Imm Gran Abs Auto 0.03 X10*3/uL (0.00-0.03); Imm Gran Pct Auto 0.4 % (0.0-0.4); Lymphocytes Absolute Auto 2.3 X10*3/uL (1.2-4.9); Lymphocytes Percent Auto 32.3 % (20-40); Mean Corpuscular HGB Conc 35.2 g/dl (31.0-36.0); Mean Corpuscular Hemoglobin 31.3 pg (27.0-33.0); Mean Corpuscular Volume 88.8 fL (80.0-98.0); Mean Platelet Volume 10.7 fL (9.4-12.4); Monocytes Absolute Auto 0.4 X10*3/uL (0.1-1.2); Monocytes Percent Auto 5.8 % (2-11); Neutrophils Percent Auto 55.3 % (45-73); Platelet Count 231 X10*3/uL (160-400); Red Cell Distribution Width 12.6 % (11.0-16.0); White Blood Count 7.2 X10*3/uL (4.8-10.8)
[2024-06-02 13:50] LABS: Estimated Average Glucose 128 mg/dL; Hemoglobin A1C 166.0005 umol/L; Hemoglobin A1c % 6.1 % (<6.0); Total Hemoglobin (HGBA1C) 3883.7493 umol/L
[2024-06-02 13:51] LABS: Alanine Aminotransferase 55 U/L (0-40); Albumin Level 4.5 g/dL (3.5-5.0); Alkaline Phosphatase 42 U/L (39-117); Anion Gap 11 (12-20); Aspartate Amino Transferase 32 U/L (5-37); Bilirubin Total 1.3 mg/dL (0.0-1.0); Blood Urea Nitrogen 19 mg/dL (9-16); Calcium 9.4 mg/dL (8.4-10.2); Carbon Dioxide 20 mmol/L (22-29); Chloride 111 mmol/L (96-108); Estimated Glomerular Filt Rate > 60; Glucose Random 125 mg/dL (60-115); Potassium 4.1 mmol/L (3.3-5.1); Sodium 138 mmol/L (135-145); Total Protein 7.2 g/dL (6.5-8.0)
[2024-06-03 10:43] LABS: LDL Cholesterol Direct 116 mg/dL (<100)
== END 2024-06-02 11:45 | disposition home or self-care (01) ==
LOC: HO.HMGCLDS 11:44
PROVIDERS: PCP Internal Medicine; Visit Provider Internal Medicine
DX: I10 Essential (primary) hypertension (principal); K21.9 Gastro-esophageal reflux disease without esophagitis; F32.2 Major depressive disorder, single episode, severe without psychotic features; E13.9 Other specified diabetes mellitus without complications; Z91.09 Other allergy status, other than to drugs and biological substances; E78.9 Disorder of lipoprotein metabolism, unspecified
CPT/HCPCS: 36415; 80053; 83036; 83721; 85025

== ENCOUNTER 2024-06-08 10:33 | Outpatient (AMB) | payer OTHER, SELFPAY ==
[2024-06-08 10:47] VITALS: BP 118/76; PULSE 76; O2SAT 98; BMI 35.0
--- NOTE | 2024-06-08 10:47 | MHC.PC.OV ---
Vital Signs 06/08/24 10:47 06/08/24 12:42 Height 5 ft 5 in Weight 210 lb 2 oz BMI 35.0 BP 118/76 130/84 Blood Pressure Location Rt brachial Rt brachial Position Sitting Sitting Pulse 76 Pulse Source Pulse Oximeter Pulse Oximetry (%) 98 Oxygen Delivery Method Room Air Intake Visit Reasons: 3 month Follow Up Allergies No Known Allergies Allergy (Verified 06/08/24 10:48) Medication List - Last Reconciled 06/08/24 by Luis Leonard MD albuterol sulfate 90 mcg/actuation (ProAir HFA) 1 inh inhalation QID PRN 30 days blood sugar diagnostic (FreeStyle Lite Strips) Use to check blood sugar TIDAC blood-glucose meter (FreeStyle Lite Meter kit) Use to check blood sugar TIDAC [Bp Monitor As directed] cetirizine 10 mg PO DAILY dulaglutide (Trulicity) 0.75 mg (0.5 mL) subcut QWEEK 30 days escitalopram oxalate (Lexapro) 5 mg PO DAILY flash glucose scanning reader (CallystroStyle Jalyn 2 [place]) Once a day flash glucose sensor (FreeStyle Jalyn 2 Sensor kit) As directed glipizide 10 mg PO BID 90 days lancets (FreeStyle Lancets) Use to check blood sugar TIDAC lisinopril 5 mg PO DAILY omeprazole 40 mg (2 x 20 mg) PO QAM 30 days pioglitazone 45 mg PO DAILY tadalafil 10 mg PO DAILY 90 days Tobacco use date assessed: 06/08/24 Dental Screening Dental Screen Date: 06/08/24 Did you have a dental visit in the last 12 months?: Yes Did you have a dental problem in the last 6 months where you did not have access to dental care?: No Was dental information given to patient?: Patient has dentist HPI 3 month Follow Up HPI Details Patient is a 44-year-old gentleman came in today for his regular follow-up appointment Diabetes mellitus: He is taking glipizide 10 mg b.i.d. and Actos 45 mg, his hemoglobin A1c is now 6.1, labs were done this month Patient is now taking Trulicity 0.75 mg once a week I am stopping his Actos as his sugars are getting low at times He also have irritable bowel syndrome and has been evaluated by Gastroenterology in the past Since the Trulicity his symptoms are slightly worse than before, more bloating and diarrhea off and on I have sent in dicyclomine with the patient he is to give it a try and send me updated message in couple of weeks through patient portal on how he is doing Blood pressure is stable, patient is on lisinopril 5 mg, and tolerating medication Allergies are stable with cetirizine GERD is stable with omeprazole 40 mg Lipid disorder: Continue diet Patient is seeing Urology for erectile dysfunction. BMI is elevated need to lose weight He has follow-up appointment early August for physical exam New set of lab order placed COUNTS INCLUDE [facility] BEDS AT [facility] Medical History Environmental allergies Diabetes Post-COVID syndrome History of COVID-19 Erectile dysfunction Surgical History Hx of colonoscopy History of esophagogastroduodenoscopy (EGD) History of anal fissures Family History Father Diabetes Thyroid disease Mother Diabetes Social History Housing: House Are you a primary hospice care consultant to a significant other at home: No Do you presently have visiting nurse or other home services: No Alcohol intake: never Patient Tobacco Use Status: Never used Tobacco e-Cigarette/Vaping Use: Never Used Substance Use Type: Marijuana service: No Current occupational status: employed Cognitive needs: No Hearing needs: No Vision needs: No Questionnaire Thrive Questionnaire Date Thrive assessed: 06/08/24 I am a: Patient What is your living situation today?: I have a steady place to live Within the past 12 months, did the food you bought not last and you didn't have the money to get more?: Never true Within the past 12 months, did you worry whether your food would run out before you got money to buy more?: Never true Do you have trouble paying for medicines?: Yes Do you have trouble getting transportation to medical appointments?: No Do you have trouble paying your heating and electricity bill?: No Do you have trouble taking care of your child, family member or friend?: No Do you have trouble with day-to-day activities such as bathing, preparing meals, shopping, managing finances, etc.?: No Are you currently unemployed and looking for a job?: No Are you interested in more education?: No Please select the resources that you would like help with: Paying for medicine Currently or been in a relationship where the following occur: No concerns reported THRIVE Score: 0 AUDIT C Alcohol Use Questionnaire (AUDIT-C) 1. How often do you have a drink containing alcohol?: Never 3. How often do you have six or more drinks on one occasion?: Never Total Score: 0 Score Reviewed/Action Taken: Yes LORETA-7 AMB Questionnaire LORETA-7 Date LORETA - 7 assessed: 03/05/24 Source: Developed by Drs. Michael Bryan, Barbara Yu, Roger Saucedo and colleagues, with an educational vivi from [employer]. Review of Systems Const Denies chills and Denies fever(s) ENT Denies epistaxis and Denies nasal discharge Card Denies chest pain Resp Denies chest congestion, Denies cough and Denies hemoptysis GI Denies nausea Skin/Breast Denies rash Neuro Reports no additional complaints Psych Reports no additional complaints Endo Reports no additional complaints Physical exam (Primary Care) Vital Signs: Last Vital Signs Pulse 76 06/08/24 10:47 BP 130/84 06/08/24 12:42 Pulse Ox 98 06/08/24 10:47 Oxygen Delivery Method Room Air 06/08/24 10:47 BMI result Body Mass Index 35.0 Tobacco/Smoking Status: Tobacco use Status Tobacco use date assessed 06/08/24 06/08/24 10:48 Patient Tobacco Use Status Never used Tobacco 06/08/24 10:48 e-Cigarette/Vaping Use Never Used 06/08/24 10:48 Thrive Assessment: Date of Thrive Assessment Date Thrive assessed 06/08/24 06/08/24 10:48 Currently or been in a relationship where the following occur: No concerns reported Const General: cooperative, comfortable and no acute distress Orientation/consciousness: patient oriented x3 HENWY Head: Yes normocephalic Eyes General: appearance normal, both eyes and all related structures Neck Neck: Yes supple Resp Effort & Inspection: normal respiratory effort, no cough and no stridor Cardio Rhythm: regular rhythm Heart sounds: S1 normal heart sound present and S2 normal heart sound present Skin General skin exam: turgor normal Neuro General: patient oriented x3, tone normal and moves all extremities Extrem Right lower extremity: no edema Left lower extremity: no edema Coding Level of Care Code Est Pt Level 4 (48296) Diagnoses Irritable bowel syndrome with both constipation and diarrhea K58.2 Irritable bowel syndrome type: with both diarrhea and constipation Lipid disorder E78.9 Environmental allergies Z91.09 Bloating symptom R14.0 Chronic diarrhea K52.9 Diabetes 1.5, managed as type 2 E13.9 Erectile dysfunction associated with type 2 diabetes mellitus E11.69; N52.1 Major depressive disorder, severe F32.2 Class 1 obesity due to excess calories with serious comorbidity and body mass index (BMI) of 33.0 to 33.9 in adult E66.09; Z68.33 Body mass index: BMI 33.0-33.9 Obesity classification: adult class 1 (BMI 30 - 34.9) Serious obesity comorbidity presence: with serious comorbidity Chronic GERD K21.9 Hypertension, essential I10 Assessment & Plan Assessment & Plan (1) IBS (irritable bowel syndrome): Code(s): K58.9 - Irritable bowel syndrome, unspecified Category: Medical Qualifiers: Irritable bowel syndrome type: with both diarrhea and constipation Qualified Code(s): K58.2 - Mixed irritable bowel syndrome (2) Lipid disorder: Code(s): E78.9 - Disorder of lipoprotein metabolism, unspecified Category: Medical (3) Environmental allergies: Code(s): Z91.09 - Other allergy status, other than to drugs and biological substances Category: Medical (4) Bloating symptom: Comment: Avoid culprits, food diary, maintain good blood sugar Code(s): R14.0 - Abdominal distension (gaseous) Category: Medical (5) Chronic diarrhea: Comment: labs, stool studies-elevated hemoglobin A1c consider EGD/ colon-history of fistula-get CTe Code(s): K52.9 - Noninfective gastroenteritis and colitis, unspecified Category: Medical (6) Diabetes 1.5, managed as type 2: Code(s): E13.9 - Other specified diabetes mellitus without complications Category: Medical (7) Erectile dysfunction associated with type 2 diabetes mellitus: Code(s): E11.69 - Type 2 diabetes mellitus with other specified complication; N52.1 - Erectile dysfunction due to diseases classified elsewhere Category: Medical (8) Major depressive disorder, severe: Code(s): F32.2 - Major depressive disorder, single episode, severe without psychotic features Category: Medical (9) Obesity due to excess calories: Comment: If your BMI is between 25 and 29.9, you are overweight. If your BMI is 30 or greater, you are obese. ___ Being obese is a problem, because it increases the risks of many different health problems. It can also make it hard for you to move, breathe, and do other things that people who are at a healthy weight can do easily. Plus, being obese can be hard emotionally. ___ What are the health risks of being obese? Being obese increases a persons risk of developing many health problems. Here are just a few examples: __ Diabetes High blood pressure, High cholesterol, Heart disease (including heart attacks) Stroke, Sleep apnea (a disorder in which you stop breathing for short periods while asleep) Asthma, Cancer __ Does being obese shorten a persons life? Yes. Studies show that people who are obese younger than people who are a healthy weight. They also show that the risk of goes up the heavier a person is. The degree of increased risk depends on how long the person has been obese, and on what other medical problems he or she has. , Reduce your carbohydrate intake and choose carbs that are complex. Remember as a general rule of thumb, avoid highly processed foods. If it's white and soft, it's probably been stripped of its nutritional value. Change white bread to whole wheat bread, white rice to brown rice, white potatoes to sweet potatoes, white pasta to whole wheat pasta. Monitor portion sizes too: protein should be no bigger than your fist. Limit your red meat intake to only once or twice a wk. Eat more white meat but make sure to avoid creamy sauces etc. Broiling, baking or grilling is best. Increase dark, green leafy vegetables and fruits. Code(s): E66.09 - Other obesity due to excess calories Category: Medical Qualifiers: Body mass index: BMI 33.0-33.9 Obesity classification: adult class 1 (BMI 30 - 34.9) Serious obesity comorbidity presence: with serious comorbidity Qualified Code(s): E66.09 - Other obesity due to excess calories; Z68.33 - Body mass index [BMI] 33.0-33.9, adult (10) Chronic GERD: Code(s): K21.9 - Gastro-esophageal reflux disease without esophagitis Category: Medical (11) Hypertension, essential: Code(s): I10 - Essential (primary) hypertension Category: Medical Plan Patient is a 44-year-old gentleman came in today for his regular follow-up appointment Diabetes mellitus: He is taking glipizide 10 mg b.i.d. and Actos 45 mg, his hemoglobin A1c is now 6.1, labs were done this month Patient is now taking Trulicity 0.75 mg once a week I am stopping his Actos as his sugars are getting low at times He also have irritable bowel syndrome and has been evaluated by Gastroenterology in the past Since the Trulicity his symptoms are slightly worse than before, more bloating and diarrhea off and on I have sent in dicyclomine with the patient he is to give it a try and send me updated message in couple of weeks through patient portal on how he is doing Blood pressure is stable, patient is on lisinopril 5 mg, and tolerating medication Allergies are stable with cetirizine GERD is stable with omeprazole 40 mg Lipid disorder: Continue diet Patient is seeing Urology for erectile dysfunction. BMI is elevated need to lose weight He has follow-up appointment early August for physical exam New set of lab order placed Orders: Orders Complete Blood Count Auto Diff Today E13.9 - Other specified diabetes mellitus without complications, I10 - Essential (primary) hypertension, K52.9 - Noninfective gastroenteritis and colitis, unspecified LDL Cholesterol Direct Today E13.9 - Other specified diabetes mellitus without complications, I10 - Essential (primary) hypertension, K52.9 - Noninfective gastroenteritis and colitis, unspecified Microalbumin, Random (w Creat) Today E13.9 - Other specified diabetes mellitus without complications, I10 - Essential (primary) hypertension, K52.9 - Noninfective gastroenteritis and colitis, unspecified Comprehensive Met. Panel Today E13.9 - Other specified diabetes mellitus without complications, I10 - Essential (primary) hypertension, K52.9 - Noninfective gastroenteritis and colitis, unspecified Hemoglobin A1c Today E13.9 - Other specified diabetes mellitus without complications, I10 - Essential (primary) hypertension, K52.9 - Noninfective gastroenteritis and colitis, unspecified
[2024-06-08 12:42] VITALS: BP 130/84
== END 2024-06-08 14:02 | disposition home or self-care (01) ==
PROVIDERS: PCP Internal Medicine; Visit Provider Internal Medicine
DX: E11.69 Type 2 diabetes mellitus with other specified complication (principal); F32.2 Major depressive disorder, single episode, severe without psychotic features; E66.09 Other obesity due to excess calories; Z68.33 Body mass index [BMI] 33.0-33.9, adult; K58.2 Mixed irritable bowel syndrome; E78.9 Disorder of lipoprotein metabolism, unspecified; Z91.09 Other allergy status, other than to drugs and biological substances; R14.0 Abdominal distension (gaseous); K52.9 Noninfective gastroenteritis and colitis, unspecified; N52.1 Erectile dysfunction due to diseases classified elsewhere; K21.9 Gastro-esophageal reflux disease without esophagitis

== ENCOUNTER 2024-07-08 09:00 | Outpatient (AMB) | payer OTHER, SELFPAY ==
--- NOTE | 2024-07-08 10:11 | MHC.PC.OV ---
Intake Visit Reasons: Gas/Diarrhea~ Trulicity Allergies No Known Allergies Allergy (Verified 07/08/24 10:12) Medication List - Last Reconciled 07/08/24 by Luis Leonard MD albuterol sulfate 90 mcg/actuation (ProAir HFA) 1 inh inhalation QID PRN 30 days blood sugar diagnostic (FreeStyle Lite Strips) Use to check blood sugar TIDAC blood-glucose meter (FreeStyle Lite Meter kit) Use to check blood sugar TIDAC [Bp Monitor As directed] cetirizine 10 mg PO DAILY dicyclomine 20 mg PO TID 30 days escitalopram oxalate (Lexapro) 5 mg PO DAILY flash glucose scanning reader (DIT[employer]comStyle Jalyn [address] [place]) Once a day flash glucose sensor (FreeStyle Jalyn 2 Sensor kit) As directed glipizide 10 mg PO BID 90 days Jardiance (empagliflozin) 25 mg PO DAILY NS lancets (FreeStyle Lancets) Use to check blood sugar TIDAC lisinopril 5 mg PO DAILY omeprazole 40 mg (2 x 20 mg) PO QAM 30 days pioglitazone 45 mg PO DAILY tadalafil 10 mg PO DAILY 90 days Tobacco use date assessed: 06/08/24 Dental Screening Dental Screen Date: 06/08/24 HPI Gas/Diarrhea~ Trulicity HPI Details Chief Complaint The patient is experiencing increased gas, bloating, and diarrhea since starting Trulicity. Assessment and Plan 44-year-old male with a history of Type 2 Diabetes Mellitus presenting with gastrointestinal symptoms likely secondary to Trulicity. The patient reports an increase in gas, bloating, and diarrhea following the initiation of Trulicity three months ago. Despite these symptoms, the patient's glycemic control has been excellent, as evidenced by a recent A1c of 6.1. Dicyclomine has been ineffective in alleviating the gastrointestinal symptoms. The plan is to discontinue Trulicity and introduce an alternative oral medication to manage the diabetes. Monitoring of blood glucose levels will continue to assess response to medication change. 1. Gastrointestinal Symptoms Secondary To Medication The patient has experienced increased gas, bloating, and diarrhea attributed to Trulicity. Dicyclomine has not provided relief. The plan is to discontinue Trulicity to assess if symptoms improve. We will monitor the patient's symptoms following this change and consider further evaluation if symptoms persist. 2. Type 2 Diabetes Mellitus The patient's recent A1c was 6.1, indicating well-controlled diabetes. However, gastrointestinal side effects from Trulicity necessitate a change in treatment. The plan is to discontinue Trulicity and introduce an alternative oral hypoglycemic agent. The patient will monitor blood glucose levels to evaluate the effectiveness of the new medication and ensure glycemic control is maintained. Diagnostic results - A1c result from June 02: 6.1 Problem List - Type 2 Diabetes Mellitus - Gastrointestinal symptoms secondary to medication (Trulicity-induced) [place] of Care - The patient has an upcoming appointment set for a physical exam on August 31. Patient Instructions - Discontinue Trulicity immediately. - Monitor blood glucose levels regularly and record readings. - Observe for any improvement in gastrointestinal symptoms after stopping Trulicity. - Be prepared to discuss any persistent or worsening symptoms at the next visit. - Ensure to attend the physical examination appointment on August 31. [facility] Medical History Environmental allergies Diabetes Post-COVID syndrome History of COVID-19 Erectile dysfunction Surgical History Hx of colonoscopy History of esophagogastroduodenoscopy (EGD) History of anal fissures Family History Father Diabetes Thyroid disease Mother Diabetes Social History Housing: House Are you a primary career consultant to a significant other at home: No Do you presently have visiting nurse or other home services: No Alcohol intake: never Patient Tobacco Use Status: Never used Tobacco e-Cigarette/Vaping Use: Never Used Substance Use Type: Marijuana service: No Current occupational status: employed Cognitive needs: No Hearing needs: No Vision needs: No Questionnaire Thrive Questionnaire Date Thrive assessed: 06/08/24 LORETA-7 AMB Questionnaire LORETA-7 Date LORETA - 7 assessed: 03/05/24 Source: Developed by Drs. Michael Bryan, Barbara Yu, Roger Saucedo and colleagues, with an educational vivi from [employer]. Review of Systems Const Denies chills and Denies fever(s) ENT Denies epistaxis and Denies nasal discharge Card Denies chest pain Resp Denies chest congestion, Denies cough and Denies hemoptysis Skin/Breast Denies rash Neuro Reports no additional complaints Psych Reports no additional complaints Endo Reports no additional complaints Physical exam (Primary Care) Tobacco/Smoking Status: Tobacco use Status Tobacco use date assessed 06/08/24 07/08/24 10:24 Patient Tobacco Use Status Never used Tobacco 07/08/24 10:24 e-Cigarette/Vaping Use Never Used 07/08/24 10:24 Thrive Assessment: Date of Thrive Assessment Date Thrive assessed 06/08/24 07/08/24 10:24 Telehealth Telehealth Telehealth Platform: [employer] Location of provider rendering services: practice address Location of patient: address on file Patient Identification confirmed using: Name, : Yes Telehealth method: voice only Patient verbally consented to treatment: Yes Patient verbally consented to billing insurance company: Yes Patient informed of any privacy concerns related to visit: Yes Minutes spent on Phone/Video with Pt.: 13 Coding Level of Care Code Tele Est Pt Level 3 (43398) Diagnoses Diabetes 1.5, managed as type 2 E13.9 Epigastric pain R10.13 Bloating symptom R14.0 Chronic diarrhea K52.9 Assessment & Plan Assessment & Plan (1) Diabetes 1.5, managed as type 2: Code(s): E13.9 - Other specified diabetes mellitus without complications Category: Medical (2) Epigastric pain: Code(s): R10.13 - Epigastric pain Category: Medical (3) Bloating symptom: Comment: Avoid culprits, food diary, maintain good blood sugar Code(s): R14.0 - Abdominal distension (gaseous) Category: Medical (4) Chronic diarrhea: Comment: labs, stool studies-elevated hemoglobin A1c consider EGD/ colon-history of fistula-get CTe Code(s): K52.9 - Noninfective gastroenteritis and colitis, unspecified Category: Medical Plan Chief Complaint The patient is experiencing increased gas, bloating, and diarrhea since starting Trulicity. Assessment and Plan 44-year-old male with a history of Type 2 Diabetes Mellitus presenting with gastrointestinal symptoms likely secondary to Trulicity. The patient reports an increase in gas, bloating, and diarrhea following the initiation of Trulicity three months ago. Despite these symptoms, the patient's glycemic control has been excellent, as evidenced by a recent A1c of 6.1. Dicyclomine has been ineffective in alleviating the gastrointestinal symptoms. The plan is to discontinue Trulicity and introduce an alternative oral medication to manage the diabetes. Monitoring of blood glucose levels will continue to assess response to medication change. 1. Gastrointestinal Symptoms Secondary To Medication The patient has experienced increased gas, bloating, and diarrhea attributed to Trulicity. Dicyclomine has not provided relief. The plan is to discontinue Trulicity to assess if symptoms improve. We will monitor the patient's symptoms following this change and consider further evaluation if symptoms persist. 2. Type 2 Diabetes Mellitus The patient's recent A1c was 6.1, indicating well-controlled diabetes. However, gastrointestinal side effects from Trulicity necessitate a change in treatment. The plan is to discontinue Trulicity and introduce an alternative oral hypoglycemic agent. The patient will monitor blood glucose levels to evaluate the effectiveness of the new medication and ensure glycemic control is maintained. Diagnostic results - A1c result from June 02: 6.1 Problem List - Type 2 Diabetes Mellitus - Gastrointestinal symptoms secondary to medication (Trulicity-induced) [place] of Care - The patient has an upcoming appointment set for a physical exam on August 31. Patient Instructions - Discontinue Trulicity immediately. - Monitor blood glucose levels regularly and record readings. - Observe for any improvement in gastrointestinal symptoms after stopping Trulicity. - Be prepared to discuss any persistent or worsening symptoms at the next visit. - Ensure to attend the physical examination appointment on August 31. Medications: New Jardiance (empagliflozin) 25 mg PO DAILY 30 tabs 0RF NS Jardiance (empagliflozin) 25 mg PO DAILY 30 tabs 0RF NS Discontinued dulaglutide (Trulicity) Discontinued Reason: Doctor's Order 0.75 mg (0.5 mL) subcut QWEEK 30 days 2.5 mL 0RF
== END 2024-07-08 11:59 | disposition home or self-care (01) ==
LOC: HO.HMCC 09:00
PROVIDERS: PCP Internal Medicine; Visit Provider Internal Medicine
DX: E13.9 Other specified diabetes mellitus without complications (principal); R10.13 Epigastric pain; R14.0 Abdominal distension (gaseous); K52.9 Noninfective gastroenteritis and colitis, unspecified

== ENCOUNTER → 2024-07-08 09:00 | Outpatient (BNVA) | payer OTHER, SELFPAY | PROVIDERS: PCP Internal Medicine; Visit Provider Internal Medicine ==

== ENCOUNTER 2024-08-13 11:33 | Outpatient (AMB) | payer OTHER, SELFPAY ==
--- NOTE | 2024-08-13 11:34 | MHC.OFFVIS ---
Intake Visit Reasons: 6m follow up Intake Note: Patient is present for 6M F/U Urology Medication:TADALAFIL Antibiotic Allergy:NONE Blood Thinner:NONE Classroom Technology Technician Required: No Allergies No Known Allergies Allergy (Verified 08/13/24 11:35) HPI Comments Details: Aguilar is a pleasant male. . He is a patient of Dr. Leonard . He is seen for the following urologic conditions - erectile dysfunction - penile skin tag ED follow-up Remains on daily 5 mg with 20 mg on demand Plan for check testosterone. HbA1c 6.1. Erectile Dysfunction with type 2 diabetes He presents today for - further evaluation erectile dysfunction Current treatment includes - daily tadalafil 5 mg with 20 mg on demand At the time of initial evaluation he experiences - erections are partial inadequate for vaginal penetration - undergo rapid detumescence Symptoms have been present for/since - progressive over past 18 months Nocturnal erections occasionally occur Prior therapies include - none Treatment side effects include - none Associated Medical Conditions include diabetes, dyslipidemia Physical Performance Status is able to walk 200 yd and can ascend 2 flights of stairs easily without breathlessness Atherosclerosis Cardiovascular Disease Risk - 11/17 HbA1c 6.6, cholesterol 203 Medications include(s) glipizide Overall - has been seen positive affects Therapeutic plan includes - Trial maximal therapy PFSH Medical History Environmental allergies Diabetes Post-COVID syndrome History of COVID-19 Erectile dysfunction Surgical History Hx of colonoscopy History of esophagogastroduodenoscopy (EGD) History of anal fissures Family History Father Diabetes Thyroid disease Mother Diabetes Social History Housing: House Are you a primary neonatal intensive care nurse to a significant other at home: No Do you presently have visiting nurse or other home services: No Alcohol intake: never Patient Tobacco Use Status: Never used Tobacco e-Cigarette/Vaping Use: Never Used Substance Use Type: Marijuana service: No Current occupational status: employed Cognitive needs: No Hearing needs: No Vision needs: No Review of Systems Const Denies chills and Denies fever(s) Card Reports no additional complaints and Denies syncope Resp Denies cough GI Denies abdominal pain and Denies heartburn Reports as per HPI and Denies change in libido Neuro Denies syncope Psych Denies change in libido Endo Denies change in libido Physical Exam Const General: cooperative, healthy appearing, comfortable and no acute distress Orientation/consciousness: patient oriented x3 HEENT Face and sinus: Yes normal facial exam Mouth: moist mucous membranes Neck Neck: Yes normal visual inspection, Yes full ROM and Yes trachea midline Chest Chest palpation & inspection: normal inspection of the chest Resp Effort & Inspection: normal respiratory effort, able to speak in complete sentences and no respiratory distress GI Inspection: Yes normal to inspection Back/Spine/Pelvis Cervical Spine: normal cervical lordosis Thoracic/Lumbar Spine: thoracic and lumbar spine normal to inspection Skin General skin exam: no rashes or lesions noted Neuro General: patient oriented x3, gait normal, tone normal and moves all extremities Extrem General: Yes normal to inspection and Yes capillary refill normal Assessment & Plan Assessment & Plan (1) Erectile dysfunction associated with type 2 diabetes mellitus: Code(s): E11.69 - Type 2 diabetes mellitus with other specified complication; N52.1 - Erectile dysfunction due to diseases classified elsewhere Category: Medical Plan Three-month follow-up testosterone lab work Orders: Orders Testosterone, Free/Total 3 Months E11.69 - Type 2 diabetes mellitus with other specified complication, N52.1 - Erectile dysfunction due to diseases classified elsewhere Patient Instructions: Imaging studies, laboratory and physical exam results were discussed and reviewed in detail. No major barriers to patient understanding were identified. An opportunity to ask questions regarding the treatment plan was provided. All questions were answered. The patient expressed understanding and agreement with the above treatment plan. The patient is aware they should contact our office by phone for worsening of their current condition or the appearance of new urologic symptoms. Compliance is encouraged with any medications and followup testing that is ordered. It is a privilege to participate in the urologic care of your patient. If you have any questions or concerns regarding treatment for the above conditions, or other urologic issues, please do not hesitate to contact me. The office telephone contact is [phone]. This note is constructed using voice recognition software. While every effort has been made to ensure accuracy grocery store manager errors may have been included. Yours sincerely, Dr James Khanna MD, [facility] - Urology Providers of Expert, Compassionate Care for the Genitourinary System Coding Level of Care Code Est Pt Level 3 (84861) Diagnoses Erectile dysfunction associated with type 2 diabetes mellitus E11.69; N52.1
== END 2024-08-13 12:35 | disposition home or self-care (01) ==
PROVIDERS: PCP Internal Medicine; Visit Provider Urology
DX: E11.69 Type 2 diabetes mellitus with other specified complication (principal); N52.1 Erectile dysfunction due to diseases classified elsewhere
CPT/HCPCS: 99213

== ENCOUNTER → 2024-08-13 11:33 | Outpatient (BNVA) | payer OTHER, SELFPAY | PROVIDERS: PCP Internal Medicine; Visit Provider Urology ==

== ENCOUNTER 2024-08-31 15:27 | Outpatient (AMB) | payer OTHER, SELFPAY ==
--- NOTE | 2024-08-31 15:30 | MHC.PC.OV ---
Vital Signs 08/31/24 15:35 Height 5 ft 5 in Weight 215 lb 6 oz BMI 35.8 BP 124/80 Blood Pressure Location Lt brachial Position Sitting Pulse 78 Pulse Source Pulse Oximeter Temp 98.2 F Temp Source Oral Pulse Oximetry (%) 99 Oxygen Delivery Method Room Air Intake Visit Reasons: Annual PE Allergies No Known Allergies Allergy (Verified 08/31/24 15:36) Medication List - Last Reconciled 08/31/24 by Luis Leonard MD albuterol sulfate 90 mcg/actuation (ProAir HFA) 1 inh inhalation QID PRN 30 days blood sugar diagnostic (FreeStyle Lite Strips) Use to check blood sugar TIDAC blood-glucose meter (FreeStyle Lite Meter kit) Use to check blood sugar TIDAC [Bp Monitor As directed] cetirizine 10 mg PO DAILY dicyclomine 20 mg PO TID 30 days escitalopram oxalate (Lexapro) 5 mg PO DAILY flash glucose scanning reader ([employer]Style Jalyn 2 [place]) Once a day flash glucose sensor (FreeStyle Jalyn 2 Sensor kit) As directed glipizide 10 mg PO BID 90 days Jardiance (empagliflozin) 25 mg PO DAILY NS lancets (FreeStyle Lancets) Use to check blood sugar TIDAC lisinopril 5 mg PO DAILY omeprazole 40 mg (2 x 20 mg) PO QAM 30 days pioglitazone 45 mg PO DAILY tadalafil 10 mg PO DAILY 90 days Tobacco use date assessed: 08/31/24 Dental Screening Dental Screen Date: 08/31/24 Did you have a dental visit in the last 12 months?: Yes Did you have a dental problem in the last 6 months where you did not have access to dental care?: No Was dental information given to patient?: Patient has dentist HPI Annual PE HPI Details Physical exam appointment - The patient is a 44-year-old male with a history of anxiety, allergies, IBS, hypertension, GERD Patient was on Trulicity before but it caused stomach pains and he had to stop Sugar was well-controlled while he was on Trulicity - Current medications include Jardiance and Glipizide, with concerns about persistently high blood glucose readings. - Previous A1c values were 6.1 while on Trulicity and 8.3 before its initiation. - Currently taking glipizide 10 mg b.i.d., Jardiance 25 mg and pioglitazone 45 mg I am starting him on Ozempic 0.25 mg patient is to get back to me once he starts the medication Health Maintenance - Discussed the importance of ongoing blood glucose monitoring. - Recent flu vaccine was administered; last recorded in July of the previous year. - No record of recent tetanus vaccine; advised to check with the pharmacy for verification. - Encouraged adherence to existing medication while monitoring blood sugar closely. 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 Diagnostic results - A1c was 6.1 in May while on Trulicity. - A1c was 8.3 in October before starting Trulicity. - Kidney function test results from May were normal. Patient Instructions - Continue taking Jardiance and Glipizide as directed and Actos - Monitor blood glucose levels regularly with arm monitor. - Adjust medication intake based on blood glucose readings; reduce if levels fall. - Check vaccination records for the tetanus shot at the pharmacy. - Contact me if there are any side effects or issues with the new injectable medication. Review of Systems - Gastrointestinal: Denies current bloating and diarrhea. - Endocrine: Reports high blood sugar levels with a delay in reduction post meals. - General: No fever no chills - Neurological: No headaches no dizziness - Ear nose throat: No sore throat no hearing difficulty no ear pain - Cardiovascular: No syncope, no chest pain, no palpitations - Genitourinary: No dysuria - Skin: No new complaints Physical Exam General: Cooperative, healthy appearing, comfortable, no acute distress Orientation: Patient oriented x3 Limitations: None Head: Normal to inspection Ears: Within normal limit visually Nose: Normal external nose present Face and sinus: Normal facial exam Eyes: Appearance normal, extraocular movement intact pupils reactive Neck: Normal visual inspection and supple Respiratory: Normal respiratory effort and able to speak in complete sentences. Clear to auscultation, no stridor Cardiovascular: S1 and S2 GI: Normal to inspection. Soft to palpation and nontender Skin: Turgor normal, no acute findings, no rashes, no moles Neuro: Patient oriented x3, motor sensory intact, balance intact, tandem pass Extremities: Normal to inspection, able to walk in a straight line, heel to toe [facility] Medical History Environmental allergies Diabetes Post-COVID syndrome History of COVID-19 Erectile dysfunction Surgical History Hx of colonoscopy History of esophagogastroduodenoscopy (EGD) History of anal fissures Family History Father Diabetes Thyroid disease Mother Diabetes Social History Housing: House Are you a primary career technical supervisor to a significant other at home: No Do you presently have visiting nurse or other home services: No Alcohol intake: never Patient Tobacco Use Status: Never used Tobacco e-Cigarette/Vaping Use: Never Used Substance Use Type: Marijuana service: No Current occupational status: employed Cognitive needs: No Hearing needs: No Vision needs: No Questionnaire PHQ-9 Over the last 2 weeks, how often have you been bothered by any of the following problems? 1. Little interest or pleasure in doing things: not at all 2. Feeling down, depressed, or hopeless: not at all 3. Trouble falling or staying asleep, or sleeping too much: not at all 4. Feeling tired or having little energy: not at all 5. Poor appetite or overeating: not at all 6. Feeling bad about yourself - or that you are a failure or have let yourself or your family down: not at all 7. Trouble concentrating on things, such as reading the newspaper or watching television: not at all 8. Moving or speaking so slowly that other people could have noticed. Or the opposite - being so fidgety or restless that you have been moving around a lot more than usual: not at all 9. Thoughts that you would be better off or of hurting yourself in some way: not at all Total score: 0 Depression Screening Interpretation: Negative Depression Screening Done: Yes 48332 - PHQ-9 Billing: Yes Source: Developed by Drs. Michael Bryan, Barbara Yu, Roger Saucedo and colleagues, with an educational vivi from [employer]. Thrive Questionnaire Date Thrive assessed: 08/31/24 I am a: Patient What is your living situation today?: I have a steady place to live Within the past 12 months, did the food you bought not last and you didn't have the money to get more?: Never true Within the past 12 months, did you worry whether your food would run out before you got money to buy more?: Never true Do you have trouble paying for medicines?: No Do you have trouble getting transportation to medical appointments?: No Do you have trouble paying your heating and electricity bill?: Yes Do you have trouble taking care of your child, family member or friend?: No Do you have trouble with day-to-day activities such as bathing, preparing meals, shopping, managing finances, etc.?: No Are you currently unemployed and looking for a job?: No Are you interested in more education?: No Please select the resources that you would like help with: Utilities Currently or been in a relationship where the following occur: No concerns reported THRIVE Score: 1 AUDIT C Alcohol Use Questionnaire (AUDIT-C) 1. How often do you have a drink containing alcohol?: Never 3. How often do you have six or more drinks on one occasion?: Never Total Score: 0 Score Reviewed/Action Taken: Yes LORETA-7 AMB Questionnaire LORETA-7 Date LORETA - 7 assessed: 08/31/24 Feeling nervous, anxious, or on edge: 0 = Not at all Not being able to stop or control worryin = Several days Worrying too much about different things: 0 = Not at all Trouble relaxin = Not at all Being so restless that it is hard to sit still: 0 = Not at all Becoming easily annoyed or irritable: 0 = Not at all Feeling afraid as if something awful might happen: 1 = Several days Total LORETA-7 score (0-4 normal; 5-9 mild; 10-14 moderate; 15-21 severe): 2 Source: Developed by Drs. Michael Bryan, Barbara Yu, Roger Saucedo and colleagues, with an educational vivi from [employer]. LORETA-7 Assessment Billing LORETA-7 Assessment Tool: LORETA-7 Assessment 44786 Physical exam (Primary Care) Vital Signs: Last Vital Signs Temp 98.2 F 08/31/24 15:35 Pulse 78 08/31/24 15:35 BP 124/80 08/31/24 15:35 Pulse Ox 99 08/31/24 15:35 Oxygen Delivery Method Room Air 08/31/24 15:35 BMI result Body Mass Index 35.8 Tobacco/Smoking Status: Tobacco use Status Tobacco use date assessed 08/31/24 08/31/24 15:37 Patient Tobacco Use Status Never used Tobacco 08/31/24 15:32 e-Cigarette/Vaping Use Never Used 08/31/24 15:32 PHQ-9: PHQ-9 Score PHQ-9: Total score 0 08/31/24 16:01 Depression Screening Interpretation: Negative Thrive Assessment: Date of Thrive Assessment Date Thrive assessed 08/31/24 08/31/24 15:37 Currently or been in a relationship where the following occur: No concerns reported Office Procedures Flu Questionnaire Does the patient have a severe egg allergy?: No Does the patient have severe life threatening allergies?: No Does the patient have a fever or illness today?: No Has the patient ever had Guillain-[place] Syndrome?: No Has the patient ever had any past reaction to a flu shot?: No Immunizations Fluarix Triv 6704-3457 (PF) 45 mcg (15 mcg x 3)/0.5 mL IM syringe Performing Provider: Luis Leonard MD Performing Location: [facility] [place] [facility] Administered by: CATHY Owens on 08/31/24 16:01 Dose Route Admin Location Dispensed Lot Number Expiration Date [facility] Cook Helper Fruit 0.5 mL IM Left Deltoid 0.5 mL [id number] 01/24/25 53046-806-88 [facility] V[facility] Given Date VIS Provided VIS Publication Date 08/31/24 Single Vaccine 21 Eligibility Eligibility Date Funding Source Not [facility] Eligible 08/31/24 Private Coding Level of Care Code Est Pt Level 3 (86048) Est Pt Prev Care 40-64y(62475) Diagnoses Class 1 obesity due to excess calories with serious comorbidity and body mass index (BMI) of 33.0 to 33.9 in adult E66.09; Z68.33 Body mass index: BMI 33.0-33.9 Obesity classification: adult class 1 (BMI 30 - 34.9) Serious obesity comorbidity presence: with serious comorbidity Uncontrolled type 2 diabetes mellitus with hyperglycemia E11.65 Diabetes mellitus type: type 2 Glycemic state: with hyperglycemia Irritable bowel syndrome with both constipation and diarrhea K58.2 Irritable bowel syndrome type: with both diarrhea and constipation Lipid disorder E78.9 Environmental allergies Z91.09 Major depressive disorder, severe F32.2 Chronic GERD K21.9 Hypertension, essential I10 Additional Codes LORETA-7 Assessment Billing - LORETA-7 Assessment Tool: LORETA-7 Assessment 37645 ([id number]) PHQ-9 - 99580 - PHQ-9 Billing: Yes ([id number]) Assessment & Plan Assessment & Plan (1) Obesity due to excess calories: Comment: If your BMI is between 25 and 29.9, you are overweight. If your BMI is 30 or greater, you are obese. ___ Being obese is a problem, because it increases the risks of many different health problems. It can also make it hard for you to move, breathe, and do other things that people who are at a healthy weight can do easily. Plus, being obese can be hard emotionally. ___ What are the health risks of being obese? Being obese increases a persons risk of developing many health problems. Here are just a few examples: __ Diabetes High blood pressure, High cholesterol, Heart disease (including heart attacks) Stroke, Sleep apnea (a disorder in which you stop breathing for short periods while asleep) Asthma, Cancer __ Does being obese shorten a persons life? Yes. Studies show that people who are obese younger than people who are a healthy weight. They also show that the risk of goes up the heavier a person is. The degree of increased risk depends on how long the person has been obese, and on what other medical problems he or she has. , Reduce your carbohydrate intake and choose carbs that are complex. Remember as a general rule of thumb, avoid highly processed foods. If it's white and soft, it's probably been stripped of its nutritional value. Change white bread to whole wheat bread, white rice to brown rice, white potatoes to sweet potatoes, white pasta to whole wheat pasta. Monitor portion sizes too: protein should be no bigger than your fist. Limit your red meat intake to only once or twice a wk. Eat more white meat but make sure to avoid creamy sauces etc. Broiling, baking or grilling is best. Increase dark, green leafy vegetables and fruits. Code(s): E66.09 - Other obesity due to excess calories Category: Medical Qualifiers: Body mass index: BMI 33.0-33.9 Obesity classification: adult class 1 (BMI 30 - 34.9) Serious obesity comorbidity presence: with serious comorbidity Qualified Code(s): E66.09 - Other obesity due to excess calories; Z68.33 - Body mass index [BMI] 33.0-33.9, adult (2) Uncontrolled diabetes mellitus: Category: Medical Qualifiers: Diabetes mellitus type: type 2 Glycemic state: with hyperglycemia Qualified Code(s): E11.65 - Type 2 diabetes mellitus with hyperglycemia (3) IBS (irritable bowel syndrome): Code(s): K58.9 - Irritable bowel syndrome, unspecified Category: Medical Qualifiers: Irritable bowel syndrome type: with both diarrhea and constipation Qualified Code(s): K58.2 - Mixed irritable bowel syndrome (4) Lipid disorder: Code(s): E78.9 - Disorder of lipoprotein metabolism, unspecified Category: Medical (5) Environmental allergies: Code(s): Z91.09 - Other allergy status, other than to drugs and biological substances Category: Medical (6) Major depressive disorder, severe: Code(s): F32.2 - Major depressive disorder, single episode, severe without psychotic features Category: Medical (7) Chronic GERD: Code(s): K21.9 - Gastro-esophageal reflux disease without esophagitis Category: Medical (8) Hypertension, essential: Code(s): I10 - Essential (primary) hypertension Category: Medical Plan Physical exam appointment - The patient is a 44-year-old male with a history of anxiety, allergies, IBS, hypertension, GERD Patient was on Trulicity before but it caused stomach pains and he had to stop Sugar was well-controlled while he was on Trulicity - Current medications include Jardiance and Glipizide, with concerns about persistently high blood glucose readings. - Previous A1c values were 6.1 while on Trulicity and 8.3 before its initiation. - Currently taking glipizide 10 mg b.i.d., Jardiance 25 mg and pioglitazone 45 mg I am starting him on Ozempic 0.25 mg patient is to get back to me once he starts the medication Health Maintenance - Discussed the importance of ongoing blood glucose monitoring. - Recent flu vaccine was administered; last recorded in July of the previous year. - No record of recent tetanus vaccine; advised to check with the pharmacy for verification. - Encouraged adherence to existing medication while monitoring blood sugar closely. 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 Diagnostic results - A1c was 6.1 in May while on Trulicity. - A1c was 8.3 in October before starting Trulicity. - Kidney function test results from May were normal. Patient Instructions - Continue taking Jardiance and Glipizide as directed and Actos - Monitor blood glucose levels regularly with arm monitor. - Adjust medication intake based on blood glucose readings; reduce if levels fall. - Check vaccination records for the tetanus shot at the pharmacy. - Contact me if there are any side effects or issues with the new injectable medication. Orders: Orders Influenza [id number] Immunization Today Z23 - Encounter for immunization Complete Blood Count Auto Diff Today E11.65 - Type 2 diabetes mellitus with hyperglycemia, E78.9 - Disorder of lipoprotein metabolism, unspecified, F32.2 - Major depressive disorder, single episode, severe without psychotic features, I10 - Essential (primary) hypertension Comprehensive [place]. Panel Fast Today E11.65 - Type 2 diabetes mellitus with hyperglycemia, E78.9 - Disorder of lipoprotein metabolism, unspecified, F32.2 - Major depressive disorder, single episode, severe without psychotic features, I10 - Essential (primary) hypertension Lipid Panel Today E11.65 - Type 2 diabetes mellitus with hyperglycemia, E78.9 - Disorder of lipoprotein metabolism, unspecified, F32.2 - Major depressive disorder, single episode, severe without psychotic features, I10 - Essential (primary) hypertension Hemoglobin A1c Today E11.65 - Type 2 diabetes mellitus with hyperglycemia, E78.9 - Disorder of lipoprotein metabolism, unspecified, F32.2 - Major depressive disorder, single episode, severe without psychotic features, I10 - Essential (primary) hypertension Microalbumin, Random (w Creat) Today E11.65 - Type 2 diabetes mellitus with hyperglycemia, E78.9 - Disorder of lipoprotein metabolism, unspecified, F32.2 - Major depressive disorder, single episode, severe without psychotic features, I10 - Essential (primary) hypertension Medications: New semaglutide (Ozempic) for 4 weeks 0.25 mg (0.368 mL) subcut QWEEK 3 mL 0RF E66.09 - Other obesity due to excess calories, Z68.33 - Body mass index [BMI] 33.0-33.9, adult
--- OUTSIDE RECORDS SUMMARY | 2024-08-31 15:32 | XMS_ITS | Clinical Summary ---
Author Organization [facility] Address [address] [place] [address] Care Team Providers Care Curing Finisher Name Role Phone David Montana MD Primary Care Provid er Medications Insulin Lispro, Human, (HUMALOG) 100 UNIT/ML SC SOLN 4 UNITS PER MEAL SLIDING SCALE Active Insulin Detemir (LEVEMIR) 100 UNIT/ML SC SOLN 27UNITS AT NIGHT Active Glucose Blood (ONE TOUCH ULTRA TEST) STRP test 4 times daily or as directed 150 Strip 5 11/02/2010 Active Active Problems Problem Noted Date Diagnosed Date Diabetes mellitus type 1, uncontrolled 1 Overview (02/11/2011): Reported dg DM 1 x 03/2008, when he presented polyuria, polydipsia, blurred vision and weight loss of about 50 pounds over a period of four to six weeks. He can not remember his initial A1c, but his glycemia was then 435. Insulin treatment was instituted, and he was cared for by a different primary care physician, Dr. Zavaleta. Reported A1c of 6.5 %x 2008 or 2009. Due to lack med insurance, and he did not have regular care in the past year. He reports no episodes of DKAs, or severe hypoglycemia. Hypoglycemia in the 50s happens once every two to three months. Rx now: levemir 27 , Humalog 4-5 B, L, 6-8 D + med ISS -Nephropathy: no microalbuminuria; nl creat/ GFR; -Retinopathy: no PDR; last exam 10/05, next 1 y -Neuropathy: none; B12 was 500s (12/05) Nutrition education: ; CDE: 12/05 2010 Celiac screen neg; pos ATAb + Diego's; TSH normal Diego's thyroiditis 02/11/2011 Overview (02/11/2011): 2010 positive antibodies; nl TSH Diabetes mellitus type II, controlled 02/11/2011 FHx: thyroid disease 02/11/2011 FHx: diabetes mellitus 02/11/2011 Overweight(278.02) 11/02/2010 Overview (06/23/2015): Dyslipidemia 11/02/2010 Social History Tobacco Use Types Packs/Day Years Used Date Smoking Tobacco: Never Smokeless Tobacco: Never Alcohol Use Standard Drinks/Week Comments Not Asked 0 (1 standard drink = 0.6 oz pur e alcohol) Sex and Gender Information Value Date Recorded Sex Assigned at Not on file Legal Sex Male 1:31 AM EDT Gender Identity Not on file Sexual Orientation Not on file Last Filed Vital Signs Vital Sign Reading Time Taken Comments Blood Pressure 118/76 02/08/2011 2:31 PM EDT Pulse 76 02/08/2011 2:31 PM EDT Temperature - - Respiratory Rate - - Oxygen Saturation - - Inhaled Oxygen Concentration - - Weight 104 kg (230 lb) 03/15/2011 3:23 PM EDT Height 167.6 cm (5' 6 ) 11/02/2010 2:04 PM EDT Body Mass Index 37.12 11/02/2010 2:04 PM EDT Plan of Treatment Health Maintenance Due Date Last Done Comments Hepatitis C Screening 1982 DTaP/Tdap/Td (1 - Tdap) 2000 GFR 2000 Hep B (1 of 3 - 19+ 3-dose series) 2001 Eye/Retina Exam 10/13/2011 10/12/2010 LDL Cholesterol 12/08/2011 12/07/2010 Microalbumin 12/08/2011 12/07/2010 COVID-19 Vaccine ( - 2023-2 5 season) 2024 Influenza (#1) 2024 Zoster (Shingrix) (1 of 2) 2032 HPV Vaccine Aged Out No longer eligi ble based on patient's age to complete this topic Hep A Aged Out No longer eligi ble based on patient's age to complete this topic Hib Aged Out No longer eligi ble based on patient's age to complete this topic Meningococcal ACWY Aged Out No longer eligible based on patient's age to complete this topic Pneumococcal Aged Out No longer eligi ble based on patient's age to complete this topic Procedures * Due to [place] SCM-GL law, this organization might not be sharing negative HIV tests. Procedure Name Priority Date/Time Associated Diagnosis Comments MICROALBUMIN (RANDOM URINE) Routine 12/07/2010 DM w/o complication type I (HCC) LIPID PANEL + CARDIAC RISK WITH REFLEX TO LDL DIRECT Routine 12/07/2010 DM w/o complication type I (HCC) from Last 3 Months or Most Recently Relevant to Health Maintenance Results * Due to [place] SCM-GL law, this organization might not be sharing negative HIV tests. * (ABNORMAL) LIPID PANEL + CARDIAC RISK WITH REFLEX TO LDL DIRECT (12/07/2010) CHOLESTEROL, TOTAL 154 125 - 200 MG/DL [facility] TRIGLYCERIDES 129 30 - 149 MG/DL [facility] HDL-CHOLESTEROL 35(L) 40 - 77 MG/DL [facility] LDL-CHOLESTEROL 93 62 - 130 MG/DL [facility] Comment: RISK CATEGORY: ??LDL-CHOLESTEROL GOAL CHD AND CHD RISK EQUIVALENTS: ??<100 MULTIPLE (2+) FACTORS: ??<130 ZERO TO ONE RISK FACTOR: ??<160 CHD RELATIVE RISK RATIO (TOTAL/HDL) 4.40 0.0 - 5.0 [facility] Comment:(0.8 X AVERAGE) 12/07/2010 12/07/2010 5:1 1 PM EDT us Kelly Carrillo MD LABORATORY Final Result [facility] [address] [place] [address] * MICROALBUMIN (RANDOM URINE) (12/07/2010) CREATININE (URINE) 217 20 - 370 MG/DL [facility] Microalbumin (Urine) 5 NOT ESTABLISHED [facility] MICROALBUMIN/CRE AT RATIO (URINE) 2 0 - 29 [facility] Comment:UNITS: MCG/MG CREATI NINE 12/07/2010 12/07/2010 5:1 1 PM EDT us Kelly Carrillo MD LABORATORY Final Result [facility] [address] [place] [address] from Last 3 Months or Most Recently Relevant to Health Maintenance Insurance [facility] FFS DIRECT CARE (HMO) Care Teams Curing Finisher Relationship Specialty Start Date End Date David Montana MD PCP - General Family Medicine 09/04/10
--- OUTSIDE RECORDS SUMMARY | 2024-08-31 15:32 | XMS_ITS | Encounter Summary ---
Author Organization [facility] Address [address] [place] [address] Care Team Providers Care School Patrol Name Role Phone David Montana MD Primary Care Provid er Encounter Details Date Type Department Care Team (Late st Contact Info) Description 12/07/2010 Orders Only [facility] Endocrinology [address] [place] [address] Kelly Carrillo MD [address] [address] Social History Tobacco Use Types Packs/Day Years Used Date Smoking Tobacco: Never Smokeless Tobacco: Never Alcohol Use Standard Drinks/Week Comments Not Asked 0 (1 standard drink = 0.6 oz pur e alcohol) Sex and Gender Information Value Date Recorded Sex Assigned at Not on file Legal Sex Male 1:31 AM EDT Gender Identity Not on file Sexual Orientation Not on file documented as of this encounter Plan of Treatment Not on file documented as of this encounter Procedures * Due to [place] state law, this organization might not be sharing negative HIV tests. Procedure Name Priority Date/Time Associated Diagnosis Comments CELIAC DISEASE PANEL WITHOUT GLIADIN Routine 12/07/2010 DM w/o complication type I (HCC) HEMOGLOBIN A1C Routine 12/07/2010 DM w/o complication type I (HCC) LIPID PANEL + CARDIAC RISK WITH REFLEX TO LDL DIRECT Routine 12/07/2010 DM w/o complication type I (HCC) THYROID PEROXIDASE AND THYROGLOBULIN ANTIBODIES Routine 12/07/2010 DM w/o complication type I (HCC) GLUTAMIC ACID DECARBOXYLASE-65 AUTOANTIBODIES Routine 12/07/2010 DM w/o complication type I (HCC) CREATININE WITH GLOMERULAR FILTRATION RATE, ESTIMATED (EGFR) Routine 12/07/2010 DM w/o complication type I (HCC) MICROALBUMIN (RANDOM URINE) Routine 12/07/2010 DM w/o complication type I (HCC) C-PEPTIDE (FASTING) Routine 12/07/2010 DM w/o complication type I (HCC) HEMATOCRIT Routine 12/07/2010 DM w/o complication type I (HCC) ALANINE AMINOTRANSFERASE (ALT), SERUM Routine 12/07/2010 DM w/o complication type I (HCC) ASPARTATE AMINOTRANSFERASE (AST), SERUM Routine 12/07/2010 DM w/o complication type I (HCC) TSH, THYROTROPIN Routine 12/07/2010 DM w/o complication type I (HCC) POTASSIUM, SERUM Routine 12/07/2010 DM w/o complication type I (HCC) VITAMIN B12 Routine 12/07/2010 DM w/o complication type I (HCC) documented in this encounter Results * Due to [place] state law, this organization might not be sharing negative HIV tests. * CREATININE WITH GLOMERULAR FILTRATION RATE, ESTIMATED (EGFR) (12/07/2010) CREATININE 0.90 0.80 - 1.30 MG/DL [facility] GFR > 60 60 AND ABOVE [facility] Comment:UNITS: ML/MIN/1.73 S Q METERS EGFR > 60 60 AND ABOVE [facility] Comment:UNITS: ML/MIN/1.73 S Q METERS 12/07/2010 12/07/2010 5:1 1 PM EDT Narrative [facility] - 12/08/2010 3:32 AM EDT Please note that this estimated GFR does not include an adjustment for the patient's height or weight, and can therefore, be viewed as reliable only for patients with heights between 60 and 72 . More precise quantification using a 24-hour urine sample or height-based algorithm is recommended for patients outside of this range of height and for those individuals with more precise needs for GFR calculation. Kelly Carrillo MD LAB SAME DAY RESULT Final Resu lt Performing Organization Address [facility] Co de Phone Number [facility] [address] [place] [address] * (ABNORMAL) THYROID PEROXIDASE AND THYROGLOBULIN ANTIBODIES (12/07/2010) Thyroglobulin AB 63(H) 20 <20.0 IU/ML [facility] ANTI THYROID PEROXIDASE (TPO) (ANTI-THYROID MICROSOMAL AB) 376(H) 0 - 34 IU/ML [facility] 12/07/2010 12/07/2010 5:1 1 PM EDT Kelly Carrillo MD LABORATORY Final Result Performing Organization Address [facility] de Phone Number [facility] [address] [place] [address] * GLUTAMIC ACID DECARBOXYLASE-65 AUTOANTIBODIES (12/07/2010) ANTI LORETA ANTIBODIES <1.0 <=1.0 U/ML [facility] 12/07/2010 12/07/2010 5:1 1 PM EDT Kelly Carrillo MD LABORATORY Final Result Performing Organization Address [facility] Co de Phone Number [facility] [address] [place] [address] * (ABNORMAL) C-PEPTIDE (FASTING) (12/07/2010) C PEPTIDE 3.75(H) 0.8 - 3.1 NG/ML [facility] 12/07/2010 12/07/2010 5:1 1 PM EDT Kelly Carrillo MD LABORATORY Final Result Performing Organization Address [place] Co de Phone Number [facility] [address] [place] [address] * ALANINE AMINOTRANSFERASE (ALT), SERUM (12/07/2010) ALT (SGPT) 51 9 - 60 U/L [facility] 12/07/2010 12/07/2010 5:1 1 PM EDT Kelly Carrillo MD LAB SAME DAY RESULT Final Resu lt Performing Organization Address [facility] Co de Phone Number [facility] [address] [place] [address] * ASPARTATE AMINOTRANSFERASE (AST), SERUM (12/07/2010) AST (SGOT) 24 10 - 40 U/L [facility] 12/07/2010 12/07/2010 5:1 1 PM EDT Kelly Carrillo MD LAB SAME DAY RESULT Final Resu lt Performing Organization Address [facility] de Phone Number [facility] [address] [place] [address] * (ABNORMAL) LIPID PANEL + CARDIAC RISK [...] us Kelly Carrillo MD LABORATORY Final Result Performing Organization Address [place] Co de Phone Number [facility] [address] [place] [address] * VITAMIN B12 (12/07/2010) Pathologist [facility] [id number] [phone] - 1100 PG/ML [facility] 12/07/2010 12/07/2010 5:1 1 PM EDT Kelly Carrillo MD LABORATORY Final Result Performing Organization Address [place] de Phone Number [facility] [address] [place] [address] * TSH (THYROTROPIN) (12/07/2010) Pathologist [facility] TSH, THYROTROPIN 1.929 0.40 - 4.50 UIU/ML [facility] 12/07/2010 12/07/2010 5: 11 PM EDT Kelly Carrillo MD LABORATORY Final Result Performing Organization Address [place] de Phone Number [facility] [address] [place] [address] * HEMATOCRIT (12/07/2010) [facility] HCT (HEMATOCRIT) 45.8 38.5 - 50.0 % [facility] 12/07/2010 12/07/2010 5:1 1 PM EDT Kelly Carrillo MD LAB SAME DAY RESULT Final Resu lt Performing Organization Address [place] de Phone Number [facility] [address] [place] [address] * CELIAC DISEASE PANEL WITHOUT GLIADIN (12/07/2010) Pathologist [facility] IGA 329 81 - 463 MG/DL [facility] TTG (Tissue Transglutamina se) IgA <3 U/ML [facility] Comment: ?REFERENCE RANGE: ?NEGATIVE: ?? <5 ?EQUIVOCAL: ?? 5-8 ?POSITIVE: ?? >8 IN AN IGA-SUFFICIENT INDIVIDUAL, HIGH TITER OF IGA TTG ANTIBODIES PROVIDES HIGHLY SENSITIVE AND SPECIFIC SUPPORT FOR THE DIAGNOSIS OF ACTIVE, UNTREATED CELIAC DISEASE. IN AN IGA-DEFICIENT INDIVIDUAL, TESTING FOR IGG ANTI-TTG MAY BE USED TO DETECT CELIAC DISEASE. 12/07/2010 12/07/2010 5:1 1 PM EDT Kelly Carrillo MD LABORATORY Final Result Performing Organization Address [place] de Phone Number [facility] [address] [place] [address] * POTASSIUM - SERUM (12/07/2010) POTASSIUM 4.0 3.5 - 5.3 MMOL/L [facility] 12/07/2010 12/07/2010 5:1 1 PM EDT Kelly Carrillo MD LAB SAME DAY RESULT Final Resu lt Performing Organization Address [facility] de Phone Number [facility] [address] [place] [address] * MICROALBUMIN (RANDOM URINE) (12/07/2010) CREATININE (URINE) 217 20 - 370 MG/DL [facility] Microalbumin (Urine) 5 NOT ESTABLISHED [facility] MICROALBUMIN/CRE AT RATIO (URINE) 2 0 - 29 [facility] Comment:UNITS: MCG/MG CREATI NINE 12/07/2010 12/07/2010 5:1 1 PM EDT us Kelly Carirllo MD LABORATORY Final Result Performing Organization Address [facility] de Phone Number [facility] [address] [place] [address] * (ABNORMAL) HEMOGLOBIN A1C (12/07/2010) Hemoglobin A1C 6.7(H) 0.0 - 5.7 % [facility] GLUCOSE MEAN VALUE 161 MG/DL [facility] 12/07/2010 12/07/2010 5:1 1 PM EDT us Kelly Carrillo MD LABORATORY Final Result [facility] [address] [place] [address] documented in this encounter Visit Diagnoses Diagnosis Type I (juvenile type) diabetes mellitus without mention of complication, not stated as uncontrolled documented in this encounter Care Teams School Patrol Relationship Specialty Start Date End Date David Montana MD PCP - General Family Medicine 09/04/10 documented as of this encounter
[2024-08-31 15:35] VITALS: BP 124/80; PULSE 78; TEMP 36.8; O2SAT 99; BMI 35.8
== END 2024-08-31 16:01 | disposition home or self-care (01) ==
PROVIDERS: PCP Internal Medicine; Visit Provider Internal Medicine
DX: Z00.00 Encounter for general adult medical examination without abnormal findings (principal); E11.65 Type 2 diabetes mellitus with hyperglycemia; F32.2 Major depressive disorder, single episode, severe without psychotic features; E66.09 Other obesity due to excess calories; Z68.33 Body mass index [BMI] 33.0-33.9, adult; K58.2 Mixed irritable bowel syndrome; E78.9 Disorder of lipoprotein metabolism, unspecified; Z91.09 Other allergy status, other than to drugs and biological substances; K21.9 Gastro-esophageal reflux disease without esophagitis; I10 Essential (primary) hypertension; Z23 Encounter for immunization

== ENCOUNTER → 2024-08-31 15:27 | Outpatient (BNVA) | payer OTHER, SELFPAY | PROVIDERS: PCP Internal Medicine; Visit Provider Internal Medicine | DX: E66.09 Other obesity due to excess calories (principal); Z68.33 Body mass index [BMI] 33.0-33.9, adult; E11.65 Type 2 diabetes mellitus with hyperglycemia; Z23 Encounter for immunization; K58.2 Mixed irritable bowel syndrome; E78.9 Disorder of lipoprotein metabolism, unspecified; F32.2 Major depressive disorder, single episode, severe without psychotic features; K21.9 Gastro-esophageal reflux disease without esophagitis; I10 Essential (primary) hypertension; Z91.09 Other allergy status, other than to drugs and biological substances | CPT/HCPCS: 90471; 90656; 96127 ==

== ENCOUNTER 2024-12-28 09:55 | Outpatient (REF) | payer OTHER, SELFPAY ==
--- OUTSIDE RECORDS SUMMARY | 2024-12-28 11:14 | XMS_ITS | Encounter Summary ---
Author Organization [facility] Address [address] [place] [address] Care Team Providers Care Dryer And Washer Mechanic Name Role Phone David Montana MD Primary Care Provid er Encounter Details Date Type Department Care Team (Late st Contact Info) Description 12/07/2010 Orders Only [facility] Endocrinology [address] [place] [address] Kelly Carrillo MD [address] [address] Social History Tobacco Use Types Packs/Day Years [...] of this encounter Procedures * Due to [place] state law, this organization might not be [...] in this encounter Results * Due to [place] state law, this organization might not be [...] RESULT Final Resu lt Performing Organization Address [facility] Co de Phone Number [facility] [address] [place] [address] * (ABNORMAL) THYROID PEROXIDASE AND THYROGLOBULIN ANTIBODIES (12/07/2010) Thyroglobulin AB 63(H) 20 <20.0 IU/ML [facility] ANTI THYROID PEROXIDASE (TPO) (ANTI-THYROID MICROSOMAL AB) 376(H) 0 - 34 IU/ML [facility] 12/07/2010 12/07/2010 5:1 1 PM EDT Kelly Carrillo MD LABORATORY Final Result Performing Organization Address [facility] de Phone Number [facility] [address] [place] [address] * GLUTAMIC ACID DECARBOXYLASE-65 AUTOANTIBODIES (12/07/2010) ANTI LORETA ANTIBODIES <1.0 <=1.0 U/ML [facility] 12/07/2010 12/07/2010 5:1 1 PM EDT Kelly Carrillo MD LABORATORY Final Result Performing Organization Address [facility] Co de Phone Number [facility] [address] [place] [address] * (ABNORMAL) C-PEPTIDE (FASTING) (12/07/2010) C PEPTIDE 3.75(H) 0.8 - 3.1 NG/ML [facility] 12/07/2010 12/07/2010 5:1 1 PM EDT Kelly Carrillo MD LABORATORY Final Result Performing Organization Address [facility] Co de Phone Number [facility] [address] [place] [address] * ALANINE AMINOTRANSFERASE (ALT), SERUM (12/07/2010) ALT (SGPT) 51 9 - 60 U/L [facility] 12/07/2010 12/07/2010 5:1 1 PM EDT Kelly Carrillo MD LAB SAME DAY RESULT Final Resu lt Performing Organization Address [facility] Co de Phone Number [facility] [address] [place] [address] * ASPARTATE AMINOTRANSFERASE (AST), SERUM (12/07/2010) AST (SGOT) 24 10 - 40 U/L [facility] 12/07/2010 12/07/2010 5:1 1 PM EDT Kelly Carrillo MD LAB SAME DAY RESULT Final Resu lt Performing Organization Address [facility] de Phone Number [facility] [address] [place] [address] * (ABNORMAL) LIPID PANEL + CARDIAC RISK [...] MD LABORATORY Final Result Performing Organization Address [facility] Co de Phone Number [facility] [address] [place] [address] * VITAMIN B12 (12/07/2010) Pathologist [facility] [id number] 528 200 - 1100 PG/ML [facility] 12/07/2010 12/07/2010 5:1 1 PM EDT Kelly Carrillo MD LABORATORY Final Result Performing Organization Address [facility] Co de Phone Number [facility] [address] [place] [address] * TSH (THYROTROPIN) (12/07/2010) Pathologist [facility] TSH, THYROTROPIN 1.929 0.40 - 4.50 UIU/ML [facility] 12/07/2010 12/07/2010 5:1 1 PM EDT Kelly Carrillo MD LABORATORY Final Result Performing Organization Address [facility] de Phone Number [facility] [address] [place] [address] * HEMATOCRIT (12/07/2010) Pathologist [facility] HCT (HEMATOCRIT) 45.8 38.5 - 50.0 % [facility] 12/07/2010 12/07/2010 5:1 1 PM EDT Result [facility] Kelly Carrillo MD LAB SAME DAY RESULT Final Resu lt Performing Organization Address [facility] de Phone Number [facility] [address] [place] [address] * CELIAC DISEASE PANEL WITHOUT GLIADIN (12/07/2010) Pathologist [facility] IGA 329 81 - 463 MG/DL [facility] [...] MD LABORATORY Final Result Performing Organization Address [facility] de Phone Number [facility] [address] [place] [address] * POTASSIUM - SERUM (12/07/2010) POTASSIUM 4.0 3.5 - 5.3 MMOL/L [facility] 12/07/2010 12/07/2010 5:1 1 PM EDT Kelly Carrillo MD LAB SAME DAY RESULT Final Resu lt Performing Organization Address [facility] de Phone Number [facility] [address] [place] [address] * MICROALBUMIN (RANDOM URINE) (12/07/2010) CREATININE (URINE) 217 20 - 370 MG/DL [facility] Microalbumin (Urine) 5 NOT ESTABLISHED [facility] MICROALBUMIN/CRE AT RATIO (URINE) 2 0 - 29 [facility] Comment:UNITS: MCG/MG CREATI NINE 12/07/2010 12/07/2010 5:1 1 PM EDT Kelly Carrillo MD LABORATORY Final Result Performing Organization Address [facility] de Phone Number [facility] [address] [place] [address] * (ABNORMAL) HEMOGLOBIN A1C (12/07/2010) Hemoglobin A1C 6.7(H) 0.0 - 5.7 % [facility] GLUCOSE MEAN VALUE 161 MG/DL [facility] 12/07/2010 12/07/2010 5:1 1 PM EDT us Kelly Carrillo MD LABORATORY Final Result [facility] [address] [place] [address] documented in this encounter Visit Diagnoses Diagnosis Type I (juvenile type) diabetes mellitus without mention of complication, not stated as uncontrolled documented in this encounter Care Teams Dryer And Washer Mechanic Relationship Specialty Start Date End Date David Montana MD PCP - General Family Medicine 09/04/10 documented as of this encounter
[2024-12-28 13:11] LABS: MANUAL DIFF FLAG NO
[2024-12-28 13:34] LABS: Basophils Percent Auto 0.6 % (0-2); Eosinophils Absolute Auto 0.1 X10*3/uL (0.0-0.4); Eosinophils Percent Auto 1.8 % (0-4); Hematocrit 44.7 % (42.0-52.0); Hemoglobin 15.8 g/dl (14.0-18.0); Imm Gran Abs Auto 0.05 X10*3/uL (0.00-0.03); Imm Gran Pct Auto 0.8 % (0.0-0.4); Lymphocytes Absolute Auto 2.3 X10*3/uL (1.2-4.9); Lymphocytes Percent Auto 35.5 % (20-40); Mean Corpuscular HGB Conc 35.3 g/dl (31.0-36.0); Mean Corpuscular Hemoglobin 30.9 pg (27.0-33.0); Mean Corpuscular Volume 87.3 fL (80.0-98.0); Mean Platelet Volume 10.7 fL (9.4-12.4); Monocytes Absolute Auto 0.5 X10*3/uL (0.1-1.2); Neutrophils Absolute Auto 3.6 x10*3/uL (2.0-8.3); Neutrophils Percent Auto 54.3 % (45-73); Platelet Count 200 X10*3/uL (160-400); Red Blood Count 5.12 X10*6/uL (4.60-5.80); Red Cell Distribution Width 13.4 % (11.0-16.0); White Blood Count 6.6 X10*3/uL (4.8-10.8)
[2024-12-28 13:58] LABS: Estimated Average Glucose 134 mg/dL; Hemoglobin A1c % 6.3 % (<6.0)
[2024-12-28 14:11] LABS: Alanine Aminotransferase 60 U/L (0-40); Albumin Level 4.7 g/dL (3.5-5.0); Alkaline Phosphatase 36 U/L (39-117); Anion Gap 11 (12-20); Aspartate Amino Transferase 38 U/L (5-37); Bilirubin Total 1.5 mg/dL (0.0-1.0); Blood Urea Nitrogen 18 mg/dL (9-16); Calcium 9.4 mg/dL (8.4-10.2); Carbon Dioxide 27 mmol/L (22-29); Chloride 107 mmol/L (96-108); Cholesterol 237 mg/dL (<200); Estimated Glomerular Filt Rate > 60; Glucose Fasting 103 mg/dL (60-99); HDL Cholesterol 39 mg/dL (>40); LDL Cholesterol Calculated 141 mg/dL (<100); Potassium 3.6 mmol/L (3.3-5.1); Sodium 141 mmol/L (135-145); Total Protein 7.1 g/dL (6.5-8.0); Triglycerides 289 mg/dL (<150)
[2024-12-28 14:26] LABS: Creatinine Urine 108.17 mg/dL; Microalbum/Creatinine Ratio Ur 16.6 ug/mg cr (<30)
[2025-01-02 16:32] LABS: Testosterone, Free 83.1 pg/mL (35.0-155.0); Testosterone, Total 536 ng/dL (250-1100)
== END 2024-12-28 09:56 | disposition home or self-care (01) ==
LOC: HO.HMGCLDS 09:55
PROVIDERS: PCP Internal Medicine; Referring Provider Urology; Visit Provider Internal Medicine
DX: E11.69 Type 2 diabetes mellitus with other specified complication (principal); N52.1 Erectile dysfunction due to diseases classified elsewhere; I10 Essential (primary) hypertension; F32.2 Major depressive disorder, single episode, severe without psychotic features; E11.65 Type 2 diabetes mellitus with hyperglycemia; E78.9 Disorder of lipoprotein metabolism, unspecified
CPT/HCPCS: 36415; 80053; 80061; 82043; 82570; 83036; 84402; 84403; 85025

== ENCOUNTER 2025-01-04 15:08 | Outpatient (AMB) | payer OTHER, SELFPAY ==
--- NOTE | 2025-01-04 15:09 | A.OFFPC_ITS ---
Vital Signs 01/04/25 15:11 Height 5 ft 5 in Weight 211 lb BMI 35.1 BP 118/68 Blood Pressure Location Rt brachial Position Sitting Pulse 77 Pulse Source Pulse Oximeter Temp 98.5 F Temp Source Oral Pulse Oximetry (%) 96 Oxygen Delivery Method Room Air Intake Visit Reasons: 4m f/u Allergies No Known Allergies Allergy (Verified 01/04/25 15:11) Medication List - Last Reconciled 01/04/25 by Luis Leonard MD albuterol sulfate 90 mcg/actuation (ProAir HFA) 1 inh inhalation QID PRN 30 days blood sugar diagnostic (FreeStyle Lite Strips) Use to check blood sugar TIDAC blood-glucose meter (FreeStyle Lite Meter kit) Use to check blood sugar TIDAC blood-glucose sensor (FreeStyle Jalyn 2 Plus Sensor device) Use As directed [Bp Monitor As directed] cetirizine 10 mg PO DAILY dicyclomine 20 mg PO TID 30 days escitalopram oxalate (Lexapro) 5 mg PO DAILY flash glucose scanning reader (KantoxStyle Jalyn 2 [place]) Once a day flash glucose sensor (FreeStyle Jalyn 2 Sensor kit) As directed glipizide 10 mg PO BID 90 days Jardiance (empagliflozin) 25 mg PO DAILY NS lancets (FreeStyle Lancets) Use to check blood sugar TIDAC lisinopril 5 mg PO DAILY omeprazole 40 mg (2 x 20 mg) PO QAM 30 days pioglitazone 45 mg PO DAILY semaglutide (Ozempic) 0.25 mg (0.368 mL) subcut QWEEK tadalafil 10 mg PO DAILY 90 days Tobacco use date assessed: 01/04/25 Dental Screening Dental Screen Date: 01/04/25 Did you have a dental visit in the last 12 months?: Yes Did you have a dental problem in the last 6 months where you did not have access to dental care?: No Was dental information given to patient?: Patient has dentist HPI 4m f/u HPI Details History - The patient is a 44-year-old male pres enting with shoulder pain and follow-up for diabetes management. - The shoulder pain began approximately one and a half months ago while using a machine at the gym. - The pain is located around the left sh oulder and occasionally radiates towards the neck and biceps. - The patient describes difficulty with certain movements such as removing clothing and swinging the arm, experiencing pain with sleep, and when twisting the body. - Pain seems to be exacerbated by weight -bearing activities and alleviated with ibuprofen, which the patient reports taking to help with sleep. - Past medical history includes regular exercise at the gym, recently limited due to shoulder pain. Medical History: - Type 2 Diabetes Mellitus - Allergic Rhinitis - Irritable Bowel Syndrome - Generalized Anxiety Disorder - Major Depressive Disorder - Gastroesophageal Reflux Disease - Hypertension Medications: - Cetirizine for allergies - Dicyclomine as needed for irritable jesus wel syndrome - Lexapro for anxiety and depression - Glipizide 10 mg twice daily for Type 2 Diabetes Mellitus - Jardiance for Type 2 Diabetes Mellitus - Lisinopril 5 mg for hypertension - Omeprazole 40 mg for gastroesophageal reflux disease - Pioglitazone for Type 2 Diabetes Melli tus - Ozempic for Type 2 Diabetes Mellitus Social History: - Engages in regular exercise, primarily walking, though currently limited by shoulder pain - Reports recent cessation of weight tra ining due to fear of exacerbating shoulder injury Diagnostic Results: - Labs: Complete blood count normal; Kid fei functions normal; HbA1c 6.3%; Elevated liver enzymes; LDL cholesterol 141 mg/dL Problem List - Type 2 Diabetes Mellitus - Muscle Strain of the Left Shoulder - Allergic Rhinitis - Irritable Bowel Syndrome - Generalized Anxiety Disorder - Major Depressive Disorder - Gastroesophageal Reflux Disease - Hyperlipidemia - Hypertension - LFT elevation Patient Instructions - Avoid energy drinks due to potential i mpact on liver function - Continue taking ibuprofen before bedti me for shoulder pain relief - start physical therapy for shoulder re habilitation - Follow-up for lab evaluation in three months to monitor liver enzymes Review of Systems - General: No fever no chills - Neurological: No headaches no dizziness - Ear nose throat: No sore throat no hearing difficulty no ear pain - Cardiovascular: No syncope, no chest pain, no palpitations - Gastrointestinal: No nausea vomiting or diarrhea - Endocrine: No polyuria polydipsia no heat intolerance - Genitourinary: No dysuria , no blood in urine Physical Exam General: No acute distress HEENT: No acute findings Neck: Supple, some stiffness noted, especially when turning to the left Respiratory system: Able to talk in full sentences, no audible wheeze Cardiovascular: S1-S2 regular in rate and rhythm Gastrointestinal: No pain Extremities: Pain over cervical had off trapezius left side, shoulder with full range of motion 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: Alert awake oriented x3 motor sensory intact Skin: Normal turgor PFSH Medical History Environmental allergies Diabetes Post-COVID syndrome History of COVID-19 Erectile dysfunction Surgical History Hx of colonoscopy History of esophagogastroduodenoscopy (EGD) History of anal fissures Family History Father Diabetes Thyroid disease Mother Diabetes Social History Housing: House Are you a primary resident caregiver to a significant other at home: No Do you presently have visiting nurse or other home services: No Alcohol intake: never Patient Tobacco Use Status: Never used Tobacco e-Cigarette/Vaping Use: Never Used Substance Use Type: Marijuana service: No Current occupational status: employed Cognitive needs: No Hearing needs: No Vision needs: No Questionnaire PHQ-9 Over the last 2 weeks, how often have you been bothered by any of the following problems? 1. Little interest or pleasure in doing things: not at all 2. Feeling down, depressed, or hopeless: not at all 3. Trouble falling or staying asleep, or sleeping too much: not at all 4. Feeling tired or having little energy: not at all 5. Poor appetite or overeating: not at all 6. Feeling bad about yourself - or that you are a failure or have let yourself or your family down: not at all 7. Trouble concentrating on things, such as reading the newspaper or watching television: not at all 8. Moving or speaking so slowly that other people could have noticed. Or the opposite - being so fidgety or restless that you have been moving around a lot more than usual: not at all 9. Thoughts that you would be better off or of hurting yourself in some way: not at all Total score: 0 Depression Screening Interpretation: Negative Depression Screening Done: Yes 45177 - PHQ-9 Billing: Yes Source: Developed by Drs. Michael Bryan, Barbara Yu, Roger Saucedo and colleagues, with an educational vivi from [employer]. Thrive Questionnaire Date Thrive assessed: 01/04/25 I am a: Patient What is your living situation today?: I have a steady place to live Within the past 12 months, did the food you bought not last and you didn't have the money to get more?: Never true Within the past 12 months, did you worry whether your food would run out before you got money to buy more?: Never true Do you have trouble paying for medicines?: No Do you have trouble getting transportation to medical appointments?: No Do you have trouble paying your heating and electricity bill?: Yes Do you have trouble taking care of your child, family member or friend?: No Do you have trouble with day-to-day activities such as bathing, preparing meals, shopping, managing finances, etc.?: No Are you currently unemployed and looking for a job?: No Are you interested in more education?: No Please select the resources that you would like help with: Utilities Currently or been in a relationship where the following occur: No concerns reported THRIVE Score: 1 LORETA-7 AMB Questionnaire LORETA-7 Date LORETA - 7 assessed: 08/31/24 Feeling nervous, anxious, or on edge: 0 = Not at all Not being able to stop or control worryin = Several days Worrying too much about different things: 0 = Not at all Trouble relaxin = Not at all Being so restless that it is hard to sit still: 0 = Not at all Becoming easily annoyed or irritable: 0 = Not at all Feeling afraid as if something awful might happen: 1 = Several days Total LORETA-7 score (0-4 normal; 5-9 mild; 10-14 moderate; 15-21 severe): 2 Source: Developed by Drs. Michael Bryan, Barbara Yu, Roger Saucedo and colleagues, with an educational vivi from [employer]. LORETA-7 Assessment Billing LORETA-7 Assessment Tool: LORETA-7 Assessment 04201 Physical exam (Primary Care) Vital Signs: Last Vital Signs Temp 98.5 F 01/04/25 15:11 Pulse 77 01/04/25 15:11 BP 118/68 01/04/25 15:11 Pulse Ox 96 01/04/25 15:11 Oxygen Delivery Method Room Air 01/04/25 15:11 BMI result Body Mass Index 35.1 Tobacco/Smoking Status: Tobacco use Status Tobacco use date assessed 01/04/25 01/04/25 15:14 Patient Tobacco Use Status Never used Tobacco 01/04/25 15:14 e-Cigarette/Vaping Use Never Used 01/04/25 15:14 PHQ-9: PHQ-9 Score PHQ-9: Total score 0 01/04/25 15:34 Depression Screening Interpretation: Negative Thrive Assessment: Date of Thrive Assessment Date Thrive assessed 01/04/25 01/04/25 15:23 Currently or been in a relationship where the following occur: No concerns reported Coding Level of Care Code Est Pt Level 4 (76357) Diagnoses Strain of left trapezius muscle, initial encounter S46.812A Laterality: left Encounter type: initial encounter Diabetes 1.5, managed as type 2 E13.9 Hypertension, essential I10 Lipid disorder E78.9 Irritable bowel syndrome with both constipation and diarrhea K58.2 Irritable bowel syndrome type: with both diarrhea and constipation Environmental allergies Z91.09 Major depressive disorder, severe F32.2 Chronic GERD K21.9 LFT elevation R79.89 Additional Codes LORETA-7 Assessment Billing - LORETA-7 Assessment Tool: LORETA-7 Assessment 04460 ([id number]) PHQ-9 - 42923 - PHQ-9 Billing: Yes ([id number]) Assessment & Plan Assessment & Plan (1) Trapezius muscle strain: Code(s): S46.819A - Strain of other muscles, fascia and tendons at shoulder and upper arm level, unspecified arm, initial encounter Category: Medical Qualifiers: Laterality: left Encounter type: initial encounter Qualified Code(s): S46.812A - Strain of other muscles, fascia and tendons at shoulder and upper arm level, left arm, initial encounter (2) Diabetes 1.5, managed as type 2: Code(s): E13.9 - Other specified diabetes mellitus without complications Category: Medical (3) Hypertension, essential: Code(s): I10 - Essential (primary) hypertension Category: Medical (4) Lipid disorder: Code(s): E78.9 - Disorder of lipoprotein metabolism, unspecified Category: Medical (5) IBS (irritable bowel syndrome): Code(s): K58.9 - Irritable bowel syndrome, unspecified Category: Medical Qualifiers: Irritable bowel syndrome type: with both diarrhea and constipation Qualified Code(s): K58.2 - Mixed irritable bowel syndrome (6) Environmental allergies: Code(s): Z91.09 - Other allergy status, other than to drugs and biological substances Category: Medical (7) Major depressive disorder, severe: Code(s): F32.2 - Major depressive disorder, single episode, severe without psychotic features Category: Medical (8) Chronic GERD: Code(s): K21.9 - Gastro-esophageal reflux disease without esophagitis Category: Medical (9) LFT elevation: Code(s): R79.89 - Other specified abnormal findings of blood chemistry Category: Medical Plan History - The patient is a 44-year-old male presenting with shoulder pain and follow-up for diabetes management. - The shoulder pain began approximately one and a half months ago while using a machine at the gym. - The pain is located around the left shoulder and occasionally radiates towards the neck and biceps. - The patient describes difficulty with certain movements such as removing clothing and swinging the arm, experiencing pain with sleep, and when twisting the body. - Pain seems to be exacerbated by weight-bearing activities and alleviated with ibuprofen, which the patient reports taking to help with sleep. - Past medical history includes regular exercise at the gym, recently limited due to shoulder pain. Medical History: - Type 2 Diabetes Mellitus - Allergic Rhinitis - Irritable Bowel Syndrome - Generalized Anxiety Disorder - Major Depressive Disorder - Gastroesophageal Reflux Disease - Hypertension Medications: - Cetirizine for allergies - Dicyclomine as needed for irritable bowel syndrome - Lexapro for anxiety and depression - Glipizide 10 mg twice daily for Type 2 Diabetes Mellitus - Jardiance for Type 2 Diabetes Mellitus - Lisinopril 5 mg for hypertension - Omeprazole 40 mg for gastroesophageal reflux disease - Pioglitazone for Type 2 Diabetes Mellitus - Ozempic for Type 2 Diabetes Mellitus Social History: - Engages in regular exercise, primarily walking, though currently limited by shoulder pain - Reports recent cessation of weight training due to fear of exacerbating shoulder injury Diagnostic Results: - Labs: Complete blood count normal; Kidney functions normal; HbA1c 6.3%; Elevated liver enzymes; LDL cholesterol 141 mg/dL Problem List - Type 2 Diabetes Mellitus - Muscle Strain of the Left Shoulder - Allergic Rhinitis - Irritable Bowel Syndrome - Generalized Anxiety Disorder - Major Depressive Disorder - Gastroesophageal Reflux Disease - Hyperlipidemia - Hypertension - LFT elevation Patient Instructions - Avoid energy drinks due to potential impact on liver function - Continue taking ibuprofen before bedtime for shoulder pain relief - start physical therapy for shoulder rehabilitation - Follow-up for lab evaluation in three months to monitor liver enzymes Orders: Orders PT Evaluation and Treatment Today S46.819A - Strain of other muscles, fascia and tendons at shoulder and upper arm level, unspecified arm, initial encounter Hemoglobin A1c 3 Months E13.9 - Other specified diabetes mellitus without complications, E78.9 - Disorder of lipoprotein metabolism, unspecified, F32.2 - Major depressive disorder, single episode, severe without psychotic features, I10 - Essential (primary) hypertension, K21.9 - Gastro-esophageal reflux disease without esophagitis, K58.2 - Mixed irritable bowel syndrome, S46.819A - Strain of other muscles, fascia and tendons at shoulder and upper arm level, unspecified arm, initial encounter, Z91.09 - Other allergy status, other than to drugs and biological substances Comprehensive Met. Panel 3 Months E13.9 - Other specified diabetes mellitus without complications, E78.9 - Disorder of lipoprotein metabolism, unspecified, F32.2 - Major depressive disorder, single episode, severe without psychotic features, I10 - Essential (primary) hypertension, K21.9 - Gastro-esophageal reflux disease without esophagitis, K58.2 - Mixed irritable bowel syndrome, S46.819A - Strain of other muscles, fascia and tendons at shoulder and upper arm level, unspecified arm, initial encounter, Z91.09 - Other allergy status, other than to drugs and biological substances
[2025-01-04 15:11] VITALS: BP 118/68; PULSE 77; TEMP 36.9; O2SAT 96; BMI 35.1
--- OUTSIDE RECORDS SUMMARY | 2025-01-04 18:14 | XMS_ITS | Encounter Summary ---
Author Organization [facility] Address [address] [place] [address] Care Team Providers Care Gunnery/Ordnance Officer Name Role Phone David Montana MD Primary Care Provid er Encounter Details Date Type Department Care Team (Late st Contact Info) Description 12/07/2010 Orders Only [facility] Endocrinology [address] [place] [address] Kelly Carrillo MD [address] [address] Social History Tobacco Use Types Packs/Day Years [...] of this encounter Procedures * Due to [place] state law, this organization might not be [...] in this encounter Results * Due to [place] state law, this organization might not be [...] RESULT Final Resu lt Performing Organization Address [facility] Co de Phone Number [facility] [address] [place] [address] * (ABNORMAL) THYROID PEROXIDASE AND THYROGLOBULIN ANTIBODIES (12/07/2010) Thyroglobulin AB 63(H) 20 <20.0 IU/ML [facility] ANTI THYROID PEROXIDASE (TPO) (ANTI-THYROID MICROSOMAL AB) 376(H) 0 - 34 IU/ML [facility] 12/07/2010 12/07/2010 5:1 1 PM EDT Kelly Carrillo MD LABORATORY Final Result Performing Organization Address [facility] de Phone Number [facility] [address] [place] [address] * GLUTAMIC ACID DECARBOXYLASE-65 AUTOANTIBODIES (12/07/2010) ANTI LORETA ANTIBODIES <1.0 <=1.0 U/ML [facility] 12/07/2010 12/07/2010 5:1 1 PM EDT Kelly Carrillo MD LABORATORY Final Result Performing Organization Address [facility] Co de Phone Number [facility] [address] [place] [address] * (ABNORMAL) C-PEPTIDE (FASTING) (12/07/2010) C PEPTIDE 3.75(H) 0.8 - 3.1 NG/ML [facility] 12/07/2010 12/07/2010 5:1 1 PM EDT Kelly Carrillo MD LABORATORY Final Result Performing Organization Address [facility] Co de Phone Number [facility] [address] [place] [address] * ALANINE AMINOTRANSFERASE (ALT), SERUM (12/07/2010) ALT (SGPT) 51 9 - 60 U/L [facility] 12/07/2010 12/07/2010 5:1 1 PM EDT Kelly Carrillo MD LAB SAME DAY RESULT Final Resu lt Performing Organization Address [facility] Co de Phone Number [facility] [address] [place] [address] * ASPARTATE AMINOTRANSFERASE (AST), SERUM (12/07/2010) AST (SGOT) 24 10 - 40 U/L [facility] 12/07/2010 12/07/2010 5:1 1 PM EDT Kelly Carrillo MD LAB SAME DAY RESULT Final Resu lt Performing Organization Address [facility] de Phone Number [facility] [address] [place] [address] * (ABNORMAL) LIPID PANEL + CARDIAC RISK [...] MD LABORATORY Final Result Performing Organization Address [facility] Co de Phone Number [facility] [address] [place] [address] * VITAMIN B12 (12/07/2010) Pathologist [facility] VITB12 [phone] - 1100 PG/ML [facility] 12/07/2010 12/07/2010 5:1 1 PM EDT Kelly Carrillo MD LABORATORY Final Result Performing Organization Address [facility] Co de Phone Number [facility] [address] [place] [address] * TSH (THYROTROPIN) (12/07/2010) Pathologist [facility] TSH, THYROTROPIN 1.929 0.40 - 4.50 UIU/ML [facility] 12/07/2010 12/07/2010 5:1 1 PM EDT Kelly Carrillo MD LABORATORY Final Result Performing Organization Address [facility] de Phone Number [facility] [address] [place] [address] * HEMATOCRIT (12/07/2010) Pathologist [facility] HCT (HEMATOCRIT) 45.8 38.5 - 50.0 % [facility] 12/07/2010 12/07/2010 5:1 1 PM EDT Result [facility] Kelly Carrillo MD LAB SAME DAY RESULT Final Resu lt Performing Organization Address [facility] de Phone Number [facility] [address] [place] [address] * CELIAC DISEASE PANEL WITHOUT GLIADIN (12/07/2010) Pathologist [facility] IGA 329 81 - 463 MG/DL [facility] [...] MD LABORATORY Final Result Performing Organization Address [facility] de Phone Number [facility] [address] [place] [address] * POTASSIUM - SERUM (12/07/2010) POTASSIUM 4.0 3.5 - 5.3 MMOL/L [facility] 12/07/2010 12/07/2010 5:1 1 PM EDT Kelly Carrillo MD LAB SAME DAY RESULT Final Resu lt Performing Organization Address [facility] de Phone Number [facility] [address] [place] [address] * MICROALBUMIN (RANDOM URINE) (12/07/2010) CREATININE (URINE) 217 20 - 370 MG/DL [facility] Microalbumin (Urine) 5 NOT ESTABLISHED [facility] MICROALBUMIN/CRE AT RATIO (URINE) 2 0 - 29 [facility] Comment:UNITS: MCG/MG CREATI NINE 12/07/2010 12/07/2010 5:1 1 PM EDT Kelly Carrillo MD LABORATORY Final Result Performing Organization Address [facility] de Phone Number [facility] [address] [place] [address] * (ABNORMAL) HEMOGLOBIN A1C (12/07/2010) Hemoglobin A1C 6.7(H) 0.0 - 5.7 % [facility] GLUCOSE MEAN VALUE 161 MG/DL [facility] 12/07/2010 12/07/2010 5:1 1 PM EDT us Kelly Carrillo MD LABORATORY Final Result [facility] [address] [place] [address] documented in this encounter Visit Diagnoses Diagnosis Type I (juvenile type) diabetes mellitus without mention of complication, not stated as uncontrolled documented in this encounter Care Teams Gunnery/Ordnance Officer Relationship Specialty Start Date End Date David Montana MD PCP - General Family Medicine 09/04/10 documented as of this encounter
== END 2025-01-04 15:34 | disposition home or self-care (01) ==
LOC: HO.HMCC 15:08
PROVIDERS: PCP Internal Medicine; Visit Provider Internal Medicine
DX: S46.812A Strain of other muscles, fascia and tendons at shoulder and upper arm level, left arm, initial encounter (principal); E13.9 Other specified diabetes mellitus without complications; F32.2 Major depressive disorder, single episode, severe without psychotic features; I10 Essential (primary) hypertension; E78.9 Disorder of lipoprotein metabolism, unspecified; K58.2 Mixed irritable bowel syndrome; Z91.09 Other allergy status, other than to drugs and biological substances; K21.9 Gastro-esophageal reflux disease without esophagitis; R79.89 Other specified abnormal findings of blood chemistry

== ENCOUNTER → 2025-01-04 15:08 | Outpatient (BNVA) | payer OTHER, SELFPAY | PROVIDERS: PCP Internal Medicine; Visit Provider Internal Medicine | DX: S46.812A Strain of other muscles, fascia and tendons at shoulder and upper arm level, left arm, initial encounter (principal); E13.9 Other specified diabetes mellitus without complications; I10 Essential (primary) hypertension; E78.9 Disorder of lipoprotein metabolism, unspecified; K58.2 Mixed irritable bowel syndrome; F32.2 Major depressive disorder, single episode, severe without psychotic features; K21.9 Gastro-esophageal reflux disease without esophagitis; R79.89 Other specified abnormal findings of blood chemistry; Z91.09 Other allergy status, other than to drugs and biological substances; Z79.84 Long term (current) use of oral hypoglycemic drugs; Z79.85 Long-term (current) use of injectable non-insulin antidiabetic drugs; Z79.899 Other long term (current) drug therapy; X58.XXXA Exposure to other specified factors, initial encounter; Y93.9 Activity, unspecified; Y92.9 Unspecified place or not applicable; Y99.9 Unspecified external cause status; Z13.31 Encounter for screening for depression | CPT/HCPCS: 96127 ==

== ENCOUNTER 2025-02-07 13:40 | Outpatient (AMB) | payer OTHER, SELFPAY ==
--- NOTE | 2025-02-07 14:01 | MHC.OFFVIS ---
Intake Visit Reasons: 6m/Testo lab Intake Note: Patient is present for 6M/TESTO LAB Urology Medication:TADALAFIL Antibiotic Allergy:NONE Blood Thinner:NONE Rail Switchman Required: No Allergies No Known Allergies Allergy (Verified 02/07/25 14:02) HPI Comments Details: Aguilar is a pleasant male. . He is a patient of Dr. Leonard . He is seen for the following urologic conditions - erectile dysfunction - penile skin tag ED follow-up Doing well with 10 mg +20 on demand Testosterone check - 01/19 540, HBA1c 6.3% 12 month follow-up Erectile Dysfunction with type 2 diabetes He presents today for - further evaluation erectile dysfunction Current treatment includes - daily tadalafil 5 mg with 20 mg on demand At the time of initial evaluation he experiences - erections are partial inadequate for vaginal penetration - undergo rapid detumescence Symptoms have been present for/since - progressive over past 18 months Nocturnal erections occasionally occur Prior therapies include - none Treatment side effects include - none Associated Medical Conditions include diabetes - current medications include semaglutide, Jardiance, glipizide, dyslipidemia Physical Performance Status is able to walk 200 yd and can ascend 2 flights of stairs easily without breathlessness Atherosclerosis Cardiovascular Disease Risk - 11/17 HbA1c 6.6, cholesterol 203 Medications include(s) glipizide Overall - has been seen positive affects Therapeutic plan includes - Trial maximal therapy PFSH Medical History Environmental allergies Diabetes Post-COVID syndrome History of COVID-19 Erectile dysfunction Surgical History Hx of colonoscopy History of esophagogastroduodenoscopy (EGD) History of anal fissures Family History Father Diabetes Thyroid disease Mother Diabetes Social History Housing: House Are you a primary rn wound care to a significant other at home: No Do you presently have visiting nurse or other home services: No Alcohol intake: never Patient Tobacco Use Status: Never used Tobacco e-Cigarette/Vaping Use: Never Used Substance Use Type: Marijuana service: No Current occupational status: employed Cognitive needs: No Hearing needs: No Vision needs: No Review of Systems Const Denies chills and Denies fever(s) Card Reports no additional complaints and Denies syncope Resp Denies cough GI Denies abdominal pain and Denies heartburn Reports as per HPI and Denies change in libido Neuro Denies syncope Psych Denies change in libido Endo Denies change in libido Physical Exam Const General: cooperative, healthy appearing, comfortable and no acute distress Orientation/consciousness: patient oriented x3 HEENT Face and sinus: Yes normal facial exam Mouth: moist mucous membranes Neck Neck: Yes normal visual inspection, Yes full ROM and Yes trachea midline Chest Chest palpation & inspection: normal inspection of the chest Resp Effort & Inspection: normal respiratory effort, able to speak in complete sentences and no respiratory distress GI Inspection: Yes normal to inspection Back/Spine/Pelvis Cervical Spine: normal cervical lordosis Thoracic/Lumbar Spine: thoracic and lumbar spine normal to inspection Skin General skin exam: no rashes or lesions noted Neuro General: patient oriented x3, gait normal, tone normal and moves all extremities Extrem General: Yes normal to inspection and Yes capillary refill normal Assessment & Plan Assessment & Plan (1) Erectile dysfunction associated with type 2 diabetes mellitus: Code(s): E11.69 - Type 2 diabetes mellitus with other specified complication; N52.1 - Erectile dysfunction due to diseases classified elsewhere Category: Medical Plan Twelve month follow-up Orders: Orders Testosterone, Total 12 Months E11.69 - Type 2 diabetes mellitus with other specified complication, N52.1 - Erectile dysfunction due to diseases classified elsewhere Medications: New tadalafil BIN [facility] [address] [id number] 20 mg PO ONCE PRN 30 tabs 0RF sexual activity 30 days E11.69 - Type 2 diabetes mellitus with other specified complication, N52.01 - Erectile dysfunction due to arterial insufficiency, N52.1 - Erectile dysfunction due to diseases classified elsewhere, N52.9 - Male erectile dysfunction, unspecified Refilled tadalafil BIN [facility] [address] [id number] 10 mg PO DAILY 90 tabs 1RF sexual activity 90 days N52.9 - Male erectile dysfunction, unspecified Patient Instructions: This note is constructed using voice recognition software. While every effort has been made to ensure accuracy english composition instructor errors may have been included. Imaging studies, laboratory and physical exam results were discussed and reviewed in detail. No major barriers to patient understanding were identified. An opportunity to ask questions regarding the treatment plan was provided. All questions were answered. The patient expressed understanding and agreement with the above treatment plan. The patient is aware they should contact our office by phone for worsening of their current condition or the appearance of new urologic symptoms. Compliance is encouraged with any medications and followup testing that is ordered. It is a privilege to participate in the urologic care of your patient. If you have any questions or concerns regarding treatment for the above conditions, or other urologic issues, please do not hesitate to contact me. The office telephone contact is [phone]. Sincerely, Dr James Khanna MD, [facility] - Urology Compassionate Specialist Care for the Genitourinary System Coding Level of Care Code Est Pt Level 3 (68375) Complex EM visit Add On G2211 Diagnoses Erectile dysfunction associated with type 2 diabetes mellitus E11.69; N52.1
--- OUTSIDE RECORDS SUMMARY | 2025-02-07 14:51 | XMS_ITS | Encounter Summary ---
Author Organization [facility] Address [address] [place] [address] Care Team Providers Care Oxygen Therapy Teacher Name Role Phone David Montana MD Primary Care Provid er Encounter Details Date Type Department Care Team (Late st Contact Info) Description 12/07/2010 Orders Only [facility] Endocrinology [address] [place] [address] Kelly Carrillo MD [address] [address] Social History Tobacco Use Types Packs/Day Years [...] of this encounter Procedures * Due to [place] state law, this organization might not be [...] in this encounter Results * Due to [place] state law, this organization might not be [...] Performing Organization Address [facility] de Phone Number [facility] [address] [place] [address] * (ABNORMAL) THYROID PEROXIDASE AND THYROGLOBULIN ANTIBODIES (12/07/2010) Thyroglobulin AB 63(H) 20 <20.0 IU/ML [facility] ANTI THYROID PEROXIDASE (TPO) (ANTI-THYROID MICROSOMAL AB) 376(H) 0 - 34 IU/ML [facility] 12/07/2010 12/07/2010 5:1 1 PM EDT Kelly Carrillo MD LABORATORY Final Result Performing Organization Address [facility] de Phone Number [facility] [address] [place] [address] * GLUTAMIC ACID DECARBOXYLASE-65 AUTOANTIBODIES (12/07/2010) ANTI LORETA ANTIBODIES <1.0 <=1.0 U/ML [facility] 12/07/2010 12/07/2010 5:1 1 PM EDT Kelly Carrillo MD LABORATORY Final Result Performing Organization Address [facility] de Phone Number [facility] [address] [place] [address] * (ABNORMAL) C-PEPTIDE (FASTING) (12/07/2010) C PEPTIDE 3.75(H) 0.8 - 3.1 NG/ML [facility] 12/07/2010 12/07/2010 5:1 1 PM EDT Kelly Carrillo MD LABORATORY Final Result Performing Organization Address [facility] de Phone Number [facility] [address] [place] [address] * ALANINE AMINOTRANSFERASE (ALT), SERUM (12/07/2010) ALT (SGPT) 51 9 - 60 U/L [facility] 12/07/2010 12/07/2010 5:1 1 PM EDT Kelly Carrillo MD LAB SAME DAY RESULT Final Resu lt Performing Organization Address [facility] de Phone Number [facility] [address] [place] [address] * ASPARTATE AMINOTRANSFERASE (AST), SERUM (12/07/2010) AST (SGOT) 24 10 - 40 U/L [facility] 12/07/2010 12/07/2010 5:1 1 PM EDT Kelly Carrillo MD LAB SAME DAY RESULT Final Resu lt Performing Organization Address [facility] de Phone Number [facility] [address] [place] [address] * (ABNORMAL) LIPID PANEL + CARDIAC RISK WITH REFLEX TO LDL DIRECT (12/07/2010) Pathologist [facility] CHOLESTEROL, TOTAL 154 125 - 200 MG/DL [facility] TRIGLYCERIDES 129 30 - 149 MG/DL [facility] HDL-CHOLESTEROL 35(L) 40 - 77 MG/DL [facility] LDL-CHOLESTEROL 93 62 - 130 MG/DL [facility] Comment: RISK CATEGORY: LDL-CHOLESTEROL GOAL CHD AND CHD RISK EQUIVALENTS: <100 MULTIPLE (2+) FACTORS: <130 ZERO TO ONE RISK FACTOR: <160 CHD RELATIVE RISK RATIO (TOTAL/HDL) 4.40 0.0 - 5.0 [facility] Comment:(0.8 X AVERAGE) 12/07/2010 12/07/2010 5:1 1 PM EDT us Kelly Carrillo MD LABORATORY Final Result Performing Organization Address [facility] de Phone Number [facility] [address] [place] [address] * VITAMIN B12 (12/07/2010) VITB12 528 200 - 1100 PG/ML [facility] 12/07/2010 12/07/2010 5:1 1 PM EDT us Kelly Carrillo MD LABORATORY Final Result [facility] [address] [place] [address] * TSH (THYROTROPIN) (12/07/2010) Pathologist [facility] TSH, THYROTROPIN 1.929 0.40 - 4.50 UIU/ML [facility] 12/07/2010 12/07/2010 5:1 1 PM EDT us Kelly Carrillo MD LABORATORY Final Result Performing Organization Address [facility] de Phone Number [facility] [address] [place] [address] * HEMATOCRIT (12/07/2010) Pathologist [facility] HCT (HEMATOCRIT) 45.8 38.5 - 50.0 % [facility] 12/07/2010 12/07/2010 5:1 1 PM EDT us Kelly Carrillo MD LAB SAME DAY RESULT Final Resu lt Performing Organization Address [facility] de Phone Number [facility] [address] [place] [address] * CELIAC DISEASE PANEL WITHOUT GLIADIN (12/07/2010) Pathologist [facility] IGA 329 81 - 463 MG/DL [facility] TTG (Tissue Transglutamina se) IgA <3 U/ML [facility] Comment: REFERENCE RANGE: NEGATIVE: <5 EQUIVOCAL: 5-8 POSITIVE: >8 IN AN IGA-SUFFICIENT INDIVIDUAL, HIGH TITER OF IGA TTG ANTIBODIES PROVIDES HIGHLY SENSITIVE AND SPECIFIC SUPPORT FOR THE DIAGNOSIS OF ACTIVE, UNTREATED CELIAC DISEASE. IN AN IGA-DEFICIENT INDIVIDUAL, TESTING FOR IGG ANTI-TTG MAY BE USED TO DETECT CELIAC DISEASE. 12/07/2010 12/07/2010 5:1 1 PM EDT us Kelly Carrillo MD LABORATORY Final Result Performing Organization Address City/[facility]/ZIP Co de Phone Number [facility] [address] [place] [address] * POTASSIUM - SERUM (12/07/2010) POTASSIUM 4.0 3.5 - 5.3 MMOL/L [facility] 12/07/2010 12/07/2010 5:1 1 PM EDT Kelly Carrillo MD LAB SAME DAY RESULT Final Resu lt Performing Organization Address City/[facility]/ZIP Co de Phone Number [facility] [address] [place] [address] * MICROALBUMIN (RANDOM URINE) (12/07/2010) CREATININE (URINE) 217 20 - 370 MG/DL [facility] Microalbumin (Urine) 5 NOT ESTABLISHED [facility] MICROALBUMIN/CRE AT RATIO (URINE) 2 0 - 29 [facility] Comment:UNITS: MCG/MG CREATI NINE 12/07/2010 12/07/2010 5:1 1 PM EDT Kelly Carrillo MD LABORATORY Final Result Performing Organization Address [facility] de Phone Number [facility] [address] [place] [address] * (ABNORMAL) HEMOGLOBIN A1C (12/07/2010) Hemoglobin A1C 6.7(H) 0.0 - 5.7 % [facility] GLUCOSE MEAN VALUE 161 MG/DL [facility] 12/07/2010 12/07/2010 5:1 1 PM EDT Kelly Carrillo MD LABORATORY Final Result Performing Organization Address City/[facility] de Phone Number [facility] [address] [place] [address] documented in this encounter Visit Diagnoses Diagnosis Type I (juvenile type) diabetes mellitus without mention of complication, not stated as uncontrolled documented in this encounter Care Teams Oxygen Therapy Teacher Relationship Specialty Start Date End Date David Montana MD PCP - General Family Medicine 09/04/10 documented as of this encounter
== END 2025-02-07 14:25 | disposition home or self-care (01) ==
LOC: HO.HUSH 13:41
PROVIDERS: PCP Internal Medicine; Visit Provider Urology
DX: E11.69 Type 2 diabetes mellitus with other specified complication (principal); N52.1 Erectile dysfunction due to diseases classified elsewhere
CPT/HCPCS: 99213

== ENCOUNTER 2025-04-01 08:12 | Outpatient (REF) | payer OTHER, SELFPAY ==
--- OUTSIDE RECORDS SUMMARY | 2025-04-01 08:31 | XMS_ITS | Clinical Summary ---
Author Organization [facility] Address [address] [place] [address] Care Team Providers Care Building Inspector Name Role Phone David Montana MD Primary [...] COVID-19 Vaccine ( - 2023-2 5 season) 2025 Influenza (#1) 2025 Zoster (Shingrix) (1 of 2) 2032 HPV Vaccine (No Doses Required) Completed Hep A Aged Out No longer eligi [...] complete this topic Procedures * Due to [place] [employer] law, this organization might not be sharing negative HIV tests. Procedure Name Priority Date/Time Associated Diagnosis Comments MICROALBUMIN (RANDOM URINE) Routine 12/07/2010 DM w/o complication type I (HCC) LIPID PANEL + CARDIAC RISK WITH REFLEX TO LDL DIRECT Routine 12/07/2010 DM w/o complication type I (HCC) from Last 3 Months or Most Recently Relevant to Health Maintenance Results * Due to [place] state law, this organization might not be [...] AVERAGE) 12/07/2010 12/07/2010 5:1 1 PM EDT Kelly Carrillo MD LABORATORY Final Result [facility] [address] [place] [address] * MICROALBUMIN (RANDOM URINE) (12/07/2010) CREATININE (URINE) 217 20 - 370 MG/DL [facility] Microalbumin (Urine) 5 NOT ESTABLISHED [facility] MICROALBUMIN/CRE AT RATIO (URINE) 2 0 - 29 [facility] Comment:UNITS: MCG/MG CREATI NINE 12/07/2010 12/07/2010 5:1 1 PM EDT Kelly Carrillo MD LABORATORY Final Result [facility] [address] [place] [address] from Last 3 Months or Most Recently Relevant to Health Maintenance Insurance INACTIVE [facility] FFS DIRECT CARE (HMO) Care Teams Building Inspector Relationship Specialty Start Date End Date David Montana MD PCP - General Family Medicine 09/04/10
--- OUTSIDE RECORDS SUMMARY | 2025-04-01 08:31 | XMS_ITS | Encounter Summary ---
Author Organization [facility] Address [address] [place] [address] Care Team Providers Care Cosmetic Counselor Name Role Phone David Montana MD Primary Care Provid er Encounter Details Date Type Department Care Team (Late st Contact Info) Description 12/07/2010 Orders Only [facility] Endocrinology [address] [place] [address] Kelly Carrillo MD [address] [address] Social History Tobacco Use Types Packs/Day Years [...] of this encounter Procedures * Due to [place] state law, this organization might not be [...] in this encounter Results * Due to [place] state law, this organization might not be [...] RESULT Final Resu lt Performing Organization Address [facility] Co de Phone Number [facility] [address] [place] [address] * (ABNORMAL) THYROID PEROXIDASE AND THYROGLOBULIN ANTIBODIES (12/07/2010) Thyroglobulin AB 63(H) 20 <20.0 IU/ML [facility] ANTI THYROID PEROXIDASE (TPO) (ANTI-THYROID MICROSOMAL AB) 376(H) 0 - 34 IU/ML [facility] 12/07/2010 12/07/2010 5:1 1 PM EDT Kelly Carrillo MD LABORATORY Final Result Performing Organization Address [facility] de Phone Number [facility] [address] [place] [address] * GLUTAMIC ACID DECARBOXYLASE-65 AUTOANTIBODIES (12/07/2010) ANTI LORETA ANTIBODIES <1.0 <=1.0 U/ML [facility] 12/07/2010 12/07/2010 5:1 1 PM EDT Kelly Carrillo MD LABORATORY Final Result Performing Organization Address [facility] Co de Phone Number [facility] [address] [place] [address] * (ABNORMAL) C-PEPTIDE (FASTING) (12/07/2010) C PEPTIDE 3.75(H) 0.8 - 3.1 NG/ML [facility] 12/07/2010 12/07/2010 5:1 1 PM EDT Kelly aCrrillo MD LABORATORY Final Result Performing Organization Address [facility] Co de Phone Number [facility] [address] [place] [address] * ALANINE AMINOTRANSFERASE (ALT), SERUM (12/07/2010) ALT (SGPT) 51 9 - 60 U/L [facility] 12/07/2010 12/07/2010 5:1 1 PM EDT Kelly Carrillo MD LAB SAME DAY RESULT Final Resu lt Performing Organization Address [facility] Co de Phone Number [facility] [address] [place] [address] * ASPARTATE AMINOTRANSFERASE (AST), SERUM (12/07/2010) AST (SGOT) 24 10 - 40 U/L [facility] 12/07/2010 12/07/2010 5:1 1 PM EDT Kelly Carrillo MD LAB SAME DAY RESULT Final Resu lt Performing Organization Address [facility] de Phone Number [facility] [address] [place] [address] * (ABNORMAL) LIPID PANEL + CARDIAC RISK WITH REFLEX TO LDL DIRECT (12/07/2010) Pathologist [facility] CHOLESTEROL, TOTAL 154 125 - 200 MG/DL [...] MD LABORATORY Final Result Performing Organization Address [facility] Co de Phone Number [facility] [address] [place] [address] * VITAMIN B12 (12/07/2010) VITB12 528 200 - 1100 PG/ML [facility] 12/07/2010 12/07/2010 5:1 1 PM EDT us Kelly Carrillo MD LABORATORY Final Result [facility] [address] [place] [address] * TSH (THYROTROPIN) (12/07/2010) Pathologist [facility] TSH, THYROTROPIN 1.929 0.40 - 4.50 UIU/ML [facility] 12/07/2010 12/07/2010 5:1 1 PM EDT us Kelly Carrillo MD LABORATORY Final Result Performing Organization Address [facility] Co de Phone Number [facility] [address] [place] [address] * HEMATOCRIT (12/07/2010) Pathologist [facility] HCT (HEMATOCRIT) 45.8 38.5 - 50.0 % [facility] 12/07/2010 12/07/2010 5:1 1 PM EDT us Kelly Carrillo MD LAB SAME DAY RESULT Final Resu lt Performing Organization Address [facility] Co de Phone Number [facility] [address] [place] [address] * CELIAC DISEASE PANEL WITHOUT GLIADIN (12/07/2010) Pathologist [facility] IGA 329 81 - 463 MG/DL [facility] [...] MD LABORATORY Final Result Performing Organization Address City/[facility]/ZIP Co de Phone Number [facility] [address] [place] [address] * POTASSIUM - SERUM (12/07/2010) POTASSIUM 4.0 3.5 - 5.3 MMOL/L [facility] 12/07/2010 12/07/2010 5:1 1 PM EDT Kelly Carrillo MD LAB SAME DAY RESULT Final Resu lt Performing Organization Address City/[facility]/ZIP Co de Phone Number [facility] [address] [place] [address] * MICROALBUMIN (RANDOM URINE) (12/07/2010) CREATININE (URINE) 217 20 - 370 MG/DL [facility] Microalbumin (Urine) 5 NOT ESTABLISHED [facility] MICROALBUMIN/CRE AT RATIO (URINE) 2 0 - 29 [facility] Comment:UNITS: MCG/MG CREATI NINE 12/07/2010 12/07/2010 5:1 1 PM EDT Kelly Carrillo MD LABORATORY Final Result Performing Organization Address [facility] Co de Phone Number [facility] [address] [place] [address] * (ABNORMAL) HEMOGLOBIN A1C (12/07/2010) Hemoglobin A1C 6.7(H) 0.0 - 5.7 % [facility] GLUCOSE MEAN VALUE 161 MG/DL [facility] 12/07/2010 12/07/2010 5:1 1 PM EDT Kelly Carrillo MD LABORATORY Final Result Performing Organization Address City/[facility] Co de Phone Number [facility] [address] [place] [address] documented in this encounter Visit Diagnoses Diagnosis Type I (juvenile type) diabetes mellitus without mention of complication, not stated as uncontrolled documented in this encounter Care Teams Cosmetic Counselor Relationship Specialty Start Date End Date David Montana MD PCP - General Family Medicine 09/04/10 documented as of this encounter
[2025-04-01 10:57] LABS: Hemoglobin A1C 188.6669 umol/L; Total Hemoglobin (HGBA1C) 4129.3909 umol/L
[2025-04-01 11:05] LABS: Alanine Aminotransferase 69 U/L (0-40); Albumin Level 4.8 g/dL (3.5-5.0); Alkaline Phosphatase 39 U/L (39-117); Anion Gap 14 (12-20); Aspartate Amino Transferase 35 U/L (5-37); Blood Urea Nitrogen 18 mg/dL (9-16); Calcium 9.2 mg/dL (8.4-10.2); Carbon Dioxide 23 mmol/L (22-29); Chloride 109 mmol/L (96-108); Estimated Glomerular Filt Rate > 60; Potassium 3.9 mmol/L (3.3-5.1); Sodium 142 mmol/L (135-145); Total Protein 7.1 g/dL (6.5-8.0)
== END 2025-04-01 08:13 | disposition home or self-care (01) ==
LOC: HO.HMGCLDS 08:12
PROVIDERS: PCP Internal Medicine; Visit Provider Internal Medicine
DX: S46.819A Strain of other muscles, fascia and tendons at shoulder and upper arm level, unspecified arm, initial encounter (principal); E78.9 Disorder of lipoprotein metabolism, unspecified; K58.2 Mixed irritable bowel syndrome; E13.9 Other specified diabetes mellitus without complications; F32.2 Major depressive disorder, single episode, severe without psychotic features; K21.9 Gastro-esophageal reflux disease without esophagitis; I10 Essential (primary) hypertension; E78.5 Hyperlipidemia, unspecified; Z91.09 Other allergy status, other than to drugs and biological substances
CPT/HCPCS: 36415; 80053; 83036

== ENCOUNTER 2025-04-06 13:21 | Outpatient (AMB) | payer OTHER, SELFPAY ==
[2025-04-06 13:29] VITALS: BP 118/74; PULSE 79; O2SAT 98; BMI 35.1
--- NOTE | 2025-04-06 13:29 | A.OFFPC_ITS ---
Vital Signs 04/06/25 13:29 Height 5 ft 5 in Weight 211 lb BMI 35.1 BP 118/74 Blood Pressure Location Lt brachial Position Sitting Pulse 79 Pulse Source Pulse Oximeter Pulse Oximetry (%) 98 Intake Visit Reasons: 3m f/u, resched Allergies No Known Allergies Allergy (Verified 04/06/25 13:30) Medication List - Last Reconciled 04/06/25 by Luis Leonard MD albuterol sulfate 90 mcg/actuation (ProAir HFA) 1 inh inhalation QID PRN 30 days amoxicillin 500 mg PO Q12H blood sugar diagnostic (FreeStyle Lite Strips) Use to check blood sugar TIDAC blood-glucose meter (FreeStyle Lite Meter kit) Use to check blood sugar TIDAC blood-glucose sensor (FreeStyle Jalyn 2 Plus Sensor device) Use As directed [Bp Monitor As directed] cetirizine 10 mg PO DAILY dicyclomine 20 mg PO TID 30 days escitalopram oxalate (Lexapro) 5 mg PO DAILY flash glucose scanning reader (Redu.usStyle Jalyn 2 [place]) Once a day flash glucose sensor (FreeStyle Jalyn 2 Sensor kit) As directed glipizide 10 mg PO BID 90 days Jardiance (empagliflozin) 25 mg PO DAILY NS lancets (FreeStyle Lancets) Use to check blood sugar TIDAC lisinopril 5 mg PO DAILY omeprazole 40 mg (2 x 20 mg) PO QAM 30 days pioglitazone 45 mg PO DAILY semaglutide (Ozempic) 0.25 mg (0.368 mL) subcut QWEEK tadalafil 20 mg PO ONCE PRN 30 days tadalafil 10 mg PO DAILY 90 days Tobacco use date assessed: 01/04/25 Dental Screening Dental Screen Date: 01/04/25 HPI 3m f/u, resched HPI Details History The patient is a 44-year-old male presenting with shoulder discomfort. And regular follow-up appointment for diabetes Shoulder Discomfort: - Reported discomfort and limitation of movement in the shoulder. - History of physical therapy for two mo nths without substantial improvement. - Certain movements cause pressure sensa tion extending to the biceps. - Therapy was extended for an additional month by the therapist. - Currently has discomfort despite adher ing to exercises with bands. - Considering further evaluation by orth opedics. Liver Enzyme Evaluation: - Mild increase in ALT from 60 to 69. - Previously advised to discontinue ener gy drinks due to liver enzyme concerns. - No prior imaging studies of the liver mentioned by the patient. Except for CT scan done - Patient prefers continued monitoring w ith blood tests every three months. CT scan report showed In 2022 Normal size and shape of liver no evidence of cirrhosis. A small area of decreased attenuation in the left lobe adjacent to falciform ligament is likely from focal steatosis. There is peripheral ossification of 3 cm hypodense focus in the right hepatic lobe suggestive of cavernous hemangioma no suspicious liver lesion Gallbladder physiologically distended and without radiopaque stones wall thickening or micah cholecystic fluid no dilated bile ducts Diabetes Mellitus Type 2: - Current HbA1c level is 6.3%. - On a regimen of Glipizide, Jardiance, Pioglitazone, and Ozempic. - Discussion on reducing Glipizide to on ce daily, pending continued monitoring. Medical History: - Diabetes Mellitus Type 2 - Hypertension - Hyperlipidemia - Irritable Bowel Syndrome - Anxiety Disorder Medications: - Cetirizine for allergies - Dicyclomine for irritable bowel syndro me - Escitalopram for anxiety, currently on 5mg dosage - Glipizide, twice daily for diabetes ma nagement - Jardiance for diabetes management - Lisinopril 5 mg for hypertension - Omeprazole for gastric reflux - Pioglitazone for diabetes management - Ozempic for diabetes management Social History: - Resides in [place] - Reports not consuming energy drinks du e to liver concerns - Engages in healthy eating habits as pa rt of diabetes management Problem List - Shoulder Discomfort left - Elevated Liver Enzymes - Diabetes Mellitus Type 2 - Essential Hypertension - Hyperlipidemia - Irritable Bowel Syndrome - Anxiety Disorder Diagnostic results - Labs: ALT increased from 60 to 69, HbA 1c at 6.3%, LDL was 141. 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 - Reduce Glipizide to once daily. - Monitor liver function with blood test s in three months. - Maintain current healthy dietary habit s. - Follow-up with primary care for regula r diabetes and blood pressure management. In 3 months Review of Systems General: No fever no chills neurological: No headaches no dizziness ear nose throat: No sore throat no hearing difficulty no ear pain cardiovascular: No syncope, no chest pain, no palpitations gastrointestinal: No nausea vomiting or diarrhea endocrine: No polyuria polydipsia no heat intolerance genitourinary: No dysuria skin: No new complaints Physical Exam general: No acute distress HEENT: No acute findings neck: Supple respiratory system: Able to talk in full sentences, no audible wheeze no stridor cardiovascular: S1-S2 RRR gastrointestinal: No pain, no nausea, no vomiting extremities: No new findings, no swelling of ankles, range of motion limited left shoulder to full extension 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 ANALYST: Alert awake oriented x3 motor sensory intact skin: Normal turgor PFSH Medical History Environmental allergies Diabetes Post-COVID syndrome History of COVID-19 Erectile dysfunction Surgical History Hx of colonoscopy History of esophagogastroduodenoscopy (EGD) History of anal fissures Family History Father Diabetes Thyroid disease Mother Diabetes Social History Housing: House Are you a primary chronic care nurse to a significant other at home: No Do you presently have visiting nurse or other home services: No Alcohol intake: never Patient Tobacco Use Status: Never used Tobacco e-Cigarette/Vaping Use: Never Used Substance Use Type: Marijuana service: No Current occupational status: employed Cognitive needs: No Hearing needs: No Vision needs: No Questionnaire Thrive Questionnaire Date Thrive assessed: 01/04/25 I am a: Patient What is your living situation today?: I have a steady place to live Within the past 12 months, did the food you bought not last and you didn't have the money to get more?: Never true Within the past 12 months, did you worry whether your food would run out before you got money to buy more?: Never true Do you have trouble paying for medicines?: No Do you have trouble getting transportation to medical appointments?: No Do you have trouble paying your heating and electricity bill?: Yes Do you have trouble taking care of your child, family member or friend?: No Do you have trouble with day-to-day activities such as bathing, preparing meals, shopping, managing finances, etc.?: No Are you currently unemployed and looking for a job?: No Are you interested in more education?: No Please select the resources that you would like help with: Utilities Currently or been in a relationship where the following occur: No concerns reported THRIVE Score: 1 LORETA-7 AMB Questionnaire LORETA-7 Date LORETA - 7 assessed: 08/31/24 Source: Developed by Drs. Michael Bryan, Barbara Yu, Roger Saucedo and colleagues, with an educational vivi from [employer]. Physical exam (Primary Care) Vital Signs: Last Vital Signs Pulse 79 04/06/25 13:29 BP 118/74 04/06/25 13:29 Pulse Ox 98 04/06/25 13:29 BMI result Body Mass Index 35.1 Tobacco/Smoking Status: Tobacco use Status Tobacco use date assessed 01/04/25 04/06/25 13:31 Patient Tobacco Use Status Never used Tobacco 04/06/25 13:31 e-Cigarette/Vaping Use Never Used 04/06/25 13:31 Thrive Assessment: Date of Thrive Assessment Date Thrive assessed 01/04/25 04/06/25 13:31 Currently or been in a relationship where the following occur: No concerns reported Coding Level of Care Code Est Pt Level 4 (66839) Diagnoses Hypertension, essential I10 Diabetes 1.5, managed as type 2 E13.9 LFT elevation R79.89 Chronic left shoulder pain M25.512; G89.29 Chronicity: chronic Lipid disorder E78.9 Irritable bowel syndrome with both constipation and diarrhea K58.2 Irritable bowel syndrome type: with both diarrhea and constipation Environmental allergies Z91.09 Major depressive disorder, severe F32.2 Chronic GERD K21.9 Assessment & Plan Assessment & Plan (1) Hypertension, essential: Code(s): I10 - Essential (primary) hypertension Category: Medical (2) Diabetes 1.5, managed as type 2: Code(s): E13.9 - Other specified diabetes mellitus without complications Category: Medical (3) LFT elevation: Code(s): R79.89 - Other specified abnormal findings of blood chemistry Category: Medical (4) Shoulder pain, left: Code(s): M25.512 - Pain in left shoulder Category: Medical Qualifiers: Chronicity: chronic Qualified Code(s): M25.512 - Pain in left shoulder; G89.29 - Other chronic pain (5) Lipid disorder: Code(s): E78.9 - Disorder of lipoprotein metabolism, unspecified Category: Medical (6) IBS (irritable bowel syndrome): Code(s): K58.9 - Irritable bowel syndrome, unspecified Category: Medical Qualifiers: Irritable bowel syndrome type: with both diarrhea and constipation Qualified Code(s): K58.2 - Mixed irritable bowel syndrome (7) Environmental allergies: Code(s): Z91.09 - Other allergy status, other than to drugs and biological substances Category: Medical (8) Major depressive disorder, severe: Code(s): F32.2 - Major depressive disorder, single episode, severe without psychotic features Category: Medical (9) Chronic GERD: Code(s): K21.9 - Gastro-esophageal reflux disease without esophagitis Category: Medical Plan History The patient is a 44-year-old male presenting with shoulder discomfort. And regular follow-up appointment for diabetes Shoulder Discomfort: - Reported discomfort and limitation of movement in the shoulder. - History of physical therapy for two months without substantial improvement. - Certain movements cause pressure sensation extending to the biceps. - Therapy was extended for an additional month by the therapist. - Currently has discomfort despite adhering to exercises with bands. - Considering further evaluation by orthopedics. Liver Enzyme Evaluation: - Mild increase in ALT from 60 to 69. - Previously advised to discontinue energy drinks due to liver enzyme concerns. - No prior imaging studies of the liver mentioned by the patient. Except for CT scan done - Patient prefers continued monitoring with blood tests every three months. CT scan report showed In 2022 Normal size and shape of liver no evidence of cirrhosis. A small area of decreased attenuation in the left lobe adjacent to falciform ligament is likely from focal steatosis. There is peripheral ossification of 3 cm hypodense focus in the right hepatic lobe suggestive of cavernous hemangioma no suspicious liver lesion Gallbladder physiologically distended and without radiopaque stones wall thickening or micah cholecystic fluid no dilated bile ducts Diabetes Mellitus Type 2: - Current HbA1c level is 6.3%. - On a regimen of Glipizide, Jardiance, Pioglitazone, and Ozempic. - Discussion on reducing Glipizide to once daily, pending continued monitoring. Medical History: - Diabetes Mellitus Type 2 - Hypertension - Hyperlipidemia - Irritable Bowel Syndrome - Anxiety Disorder Medications: - Cetirizine for allergies - Dicyclomine for irritable bowel syndrome - Escitalopram for anxiety, currently on 5mg dosage - Glipizide, twice daily for diabetes management - Jardiance for diabetes management - Lisinopril 5 mg for hypertension - Omeprazole for gastric reflux - Pioglitazone for diabetes management - Ozempic for diabetes management Social History: - Resides in [place] - Reports not consuming energy drinks due to liver concerns - Engages in healthy eating habits as part of diabetes management Problem List - Shoulder Discomfort left - Elevated Liver Enzymes - Diabetes Mellitus Type 2 - Essential Hypertension - Hyperlipidemia - Irritable Bowel Syndrome - Anxiety Disorder Diagnostic results - Labs: ALT increased from 60 to 69, HbA1c at 6.3%, LDL was 141. Patient Instructions - Continue with prescribed physical therapy exercises and follow-up with orthopedic care as needed. - Reduce Glipizide to once daily. - Monitor liver function with blood tests in three months. - Maintain current healthy dietary habits. - Follow-up with primary care for regular diabetes and blood pressure management. In 3 months Orders: Orders Comprehensive Met. Panel 3 Months E13.9 - Other specified diabetes mellitus without complications, I10 - Essential (primary) hypertension, R79.89 - Other specified abnormal findings of blood chemistry LDL Cholesterol Direct 3 Months E13.9 - Other specified diabetes mellitus without complications, I10 - Essential (primary) hypertension, R79.89 - Other specified abnormal findings of blood chemistry Hemoglobin A1c 3 Months E13.9 - Other specified diabetes mellitus without complications, I10 - Essential (primary) hypertension, R79.89 - Other specified abnormal findings of blood chemistry Complete Blood Count Auto Diff 3 Months E13.9 - Other specified diabetes mellitus without complications, I10 - Essential (primary) hypertension, R79.89 - Other specified abnormal findings of blood chemistry Referrals Orthopedics Referral M25.512 - Pain in left shoulder Medications: New glipizide 10 mg PO DAILY Discontinued glipizide Discontinued Reason: Doctor's Order 10 mg PO BID 90 days 180 tabs 0RF
--- OUTSIDE RECORDS SUMMARY | 2025-04-06 16:25 | XMS_ITS | Encounter Summary ---
Author Organization [facility] Address [address] [place] [address] Care Team Providers Care Rubber Liner Name Role Phone David Montana MD Primary Care Provid er Encounter Details Date Type Department Care Team (Late st Contact Info) Description 12/07/2010 Orders Only [facility] [address] [place] [address] Kelly Carrillo MD [address] [address] Social History Tobacco Use Types Packs/Day Years [...] RESULT Final Resu lt Performing Organization Address [facility] Co de Phone Number [facility] [address] [place] [address] * (ABNORMAL) THYROID PEROXIDASE AND THYROGLOBULIN ANTIBODIES (12/07/2010) Thyroglobulin AB 63(H) 20 <20.0 IU/ML [facility] ANTI THYROID PEROXIDASE (TPO) (ANTI-THYROID MICROSOMAL AB) 376(H) 0 - 34 IU/ML [facility] 12/07/2010 12/07/2010 5:1 1 PM EDT Kelly Carrillo MD LABORATORY Final Result Performing Organization Address [facility] de Phone Number [facility] [address] [place] [address] * GLUTAMIC ACID DECARBOXYLASE-65 AUTOANTIBODIES (12/07/2010) ANTI LORETA ANTIBODIES <1.0 <=1.0 U/ML [facility] 12/07/2010 12/07/2010 5:1 1 PM EDT Kelly Carrillo MD LABORATORY Final Result Performing Organization Address [facility] Co de Phone Number [facility] [address] [place] [address] * (ABNORMAL) C-PEPTIDE (FASTING) (12/07/2010) C PEPTIDE 3.75(H) 0.8 - 3.1 NG/ML [facility] 12/07/2010 12/07/2010 5:1 1 PM EDT Kelly Carrillo MD LABORATORY Final Result Performing Organization Address [facility] Co de Phone Number [facility] [address] [place] [address] * ALANINE AMINOTRANSFERASE (ALT), SERUM (12/07/2010) ALT (SGPT) 51 9 - 60 U/L [facility] 12/07/2010 12/07/2010 5:1 1 PM EDT Kelly Carrillo MD LAB SAME DAY RESULT Final Resu lt Performing Organization Address [facility] Co de Phone Number [facility] [address] [place] [address] * ASPARTATE AMINOTRANSFERASE (AST), SERUM (12/07/2010) AST (SGOT) 24 10 - 40 U/L [facility] 12/07/2010 12/07/2010 5:1 1 PM EDT Kelly Carrillo MD LAB SAME DAY RESULT Final Resu lt Performing Organization Address [facility] de Phone Number [facility] [address] [place] [address] * (ABNORMAL) LIPID PANEL + CARDIAC RISK [...] MD LABORATORY Final Result Performing Organization Address [facility] Co de Phone Number [facility] [address] [place] [address] * VITAMIN B12 (12/07/2010) VITB12 528 200 - 1100 PG/ML [facility] 12/07/2010 12/07/2010 5:1 1 PM EDT us Kelly Carrillo MD LABORATORY Final Result [facility] [address] [place] [address] * TSH (THYROTROPIN) (12/07/2010) Pathologist [facility] TSH, THYROTROPIN 1.929 0.40 - 4.50 UIU/ML [facility] 12/07/2010 12/07/2010 5:1 1 PM EDT us Kelly Carrillo MD LABORATORY Final Result Performing Organization Address [facility] Co de Phone Number [facility] [address] [place] [address] * HEMATOCRIT (12/07/2010) Pathologist [facility] HCT (HEMATOCRIT) 45.8 38.5 - 50.0 % [facility] 12/07/2010 12/07/2010 5:1 1 PM EDT us Kelly Carrillo MD LAB SAME DAY RESULT Final Resu lt Performing Organization Address [facility] Co de Phone Number [facility] [address] [place] [address] * CELIAC DISEASE PANEL WITHOUT GLIADIN (12/07/2010) [...] MD LABORATORY Final Result Performing Organization Address City/[facility]/ZIP Co de Phone Number [facility] [address] [place] [address] * POTASSIUM - SERUM (12/07/2010) POTASSIUM 4.0 3.5 - 5.3 MMOL/L [facility] 12/07/2010 12/07/2010 5:1 1 PM EDT Kelly Carrillo MD LAB SAME DAY RESULT Final Resu lt Performing Organization Address City/[facility]/ZIP Co de Phone Number [facility] [address] [place] [address] * MICROALBUMIN (RANDOM URINE) (12/07/2010) CREATININE (URINE) 217 20 - 370 MG/DL [facility] Microalbumin (Urine) 5 NOT ESTABLISHED [facility] MICROALBUMIN/CRE AT RATIO (URINE) 2 0 - 29 [facility] Comment:UNITS: MCG/MG CREATI NINE 12/07/2010 12/07/2010 5:1 1 PM EDT Kelly Carrillo MD LABORATORY Final Result Performing Organization Address [facility] Co de Phone Number [facility] [address] [place] [address] * (ABNORMAL) HEMOGLOBIN A1C (12/07/2010) Hemoglobin A1C 6.7(H) 0.0 - 5.7 % [facility] GLUCOSE MEAN VALUE 161 MG/DL [facility] 12/07/2010 12/07/2010 5:1 1 PM EDT Kelly Carrillo MD LABORATORY Final Result Performing Organization Address City/[facility] Co de Phone Number [facility] [address] [place] [address] documented in this encounter Visit Diagnoses Diagnosis Type I (juvenile type) diabetes mellitus without mention of complication, not stated as uncontrolled documented in this encounter Care Teams Rubber Liner Relationship Specialty Start Date End Date David Montana MD PCP - General Family Medicine 09/04/10 documented as of this encounter
--- OUTSIDE RECORDS SUMMARY | 2025-04-06 16:26 | XMS_ITS | Clinical Summary ---
Author Organization [facility] Address [address] [place] [address] Care Team Providers Care Environmental Engineering Aide Name Role Phone David Montana MD Primary [...] complete this topic Procedures * Due to [place] law, this organization might not be sharing negative HIV tests. Procedure Name Priority Date/Time Associated Diagnosis Comments MICROALBUMIN (RANDOM URINE) Routine 12/07/2010 DM w/o complication type I (HCC) LIPID PANEL + CARDIAC RISK WITH REFLEX TO LDL DIRECT Routine 12/07/2010 DM w/o complication type I (HCC) from Last 3 Months or Most Recently Relevant to Health Maintenance Results * Due to [place] state law, this organization might not be [...] MD LABORATORY Final Result [facility] [address] [place] [address] * MICROALBUMIN (RANDOM URINE) (12/07/2010) CREATININE (URINE) 217 20 - 370 MG/DL [facility] Microalbumin (Urine) 5 NOT ESTABLISHED [facility] MICROALBUMIN/CRE AT RATIO (URINE) 2 0 - 29 [facility] Comment:UNITS: MCG/MG CREATI NINE 12/07/2010 12/07/2010 5:1 1 PM EDT Kelly Carrillo MD LABORATORY Final Result [facility] [address] [place] [address] from Last 3 Months or Most Recently Relevant to Health Maintenance Insurance [facility] [employer] DIRECT CARE (HMO) Care Teams Environmental Engineering Aide Relationship Specialty Start Date End Date David Montana MD PCP - General Family Medicine 09/04/10
== END 2025-04-06 13:54 | disposition home or self-care (01) ==
LOC: HO.HMCC 13:22
PROVIDERS: PCP Internal Medicine; Visit Provider Internal Medicine
DX: I10 Essential (primary) hypertension (principal); E13.9 Other specified diabetes mellitus without complications; F32.2 Major depressive disorder, single episode, severe without psychotic features; R79.89 Other specified abnormal findings of blood chemistry; M25.512 Pain in left shoulder; G89.29 Other chronic pain; E78.9 Disorder of lipoprotein metabolism, unspecified; K58.2 Mixed irritable bowel syndrome; Z91.09 Other allergy status, other than to drugs and biological substances; K21.9 Gastro-esophageal reflux disease without esophagitis

== ENCOUNTER 2025-04-07 16:00 | Outpatient (RCR) | payer OTHER, SELFPAY ==
--- NOTE | 2025-01-24 14:58 | MHC.PT.EP ---
[facility] Office [place] [facility] [place] [facility] [address] Joann Machuca [address] [phone] F: [phone] F: [phone] F: [phone] F: [phone] Physical Therapy Plan of Care Date of Evaluation: 01/24/25 Date of Surgery: n/a Diagnosis: Strain of other muscles, fascia and tendons at shoulder and upper arm level, unspecified arm, initial encounter Trapezius muscle strain Assessment: Pt is a pleasant and motivated 44yo M who presents to PT with pain in L upper trap region with radicular symptoms into L upper arm. He presents to PT with current impairments in pain, decreased ROM, decreased strength, soft tissue restrictions, and impaired posture. He is limited functionally by reaching out to the side, sleeping on right side, lifting, reaching behind head, reaching behind back, driving, wearing seat belt, and playing the guitar. He is a good candidate for skilled PT in order to address current impairments to facilitate return to PLOF. He is recommended to be seen 2x/week for 4 weeks and will be reassessed at that time Frequency and Duration: The patient will be seen 2x/week for 4 weeks Short Term Goals: Pt will be I with HEP to promote self management of symptoms Pt will demonstrate improvements in postural awareness throughout the day Video Intern Goals: Pt will demonstrate full ROM and strength all planes of left shoulder to assist with lifting and reaching Pt will demonstrate ability to reach behind his back and his head with L UE with minimal to no pain or discomfort Pt will return to playing guitar without pain in L shoulder Treatment Plan: Modalities to reduce pain, spasms and effusion. Manual therapy to restore motion and function. Therapeutic exercise to improve strength and flexibility. Neuromuscular re-education for posture and balance. Therapeutic activities to return to functional activities of daily living. Electronically signed by: Kitty Ruffin, PT, DPT Please sign and return to therapist. Thank you for your referral.
--- NOTE | 2025-06-06 08:24 | MHC.PT.DC ---
[facility] [place] Office [place] Office [place] Office [address] Joann Machuca [address] [facility] [phone] F: [phone] F: [phone] F: [phone] F: [phone] Physical Therapy Discharge Report Diagnosis: Strain of other muscles, fascia and tendons at shoulder and upper arm level, unspecified arm, initial encounter Trapezius muscle strain Date of Surgery: n/a Date of Evaluation: 01/24/25 Date of Discharge: 06/06/25 Treatments to Date: 18 Cancellations to Date: No Shows to Date: Discharge Status: Achieved Goals Improved Function Independent with [facility]P Discharge Summary: Pt was seen for skilled PT on 01/24/25-04/07/25. His last attended and scheduled appointment was 04/07/25. Per last treatment note, he improved AROM of L shoulder, met his short and senior care goals, and was independent with [facility]P. He was D/C to [facility] on 04/07/25 Electronically signed by: Kitty Duran, PT, DPT Please sign and return to therapist. Thank you for your referral.
== END 2025-06-06 08:24 | disposition home or self-care (01) ==
LOC: HO.PT 16:00
PROVIDERS: PCP Internal Medicine; Visit Provider Internal Medicine
DX: S46.812D Strain of other muscles, fascia and tendons at shoulder and upper arm level, left arm, subsequent encounter (principal)
CPT/HCPCS: 97014; 97110; 97140; 97161; 97530

== ENCOUNTER 2025-06-06 12:59 | Outpatient (AMB) | payer OTHER, SELFPAY ==
[2025-06-06 13:30] VITALS: BP 122/80; PULSE 102; TEMP 36.7; O2SAT 98; BMI 34.3
--- NOTE | 2025-06-06 13:30 | AM.OFFWIN_ITS ---
Intake Vital Signs 3 06/06/25 13:30 Height 5 ft 5 in Weight 206 lb BMI 34.3 BP 122/80 Blood Pressure Location Lt brachial Position Sitting Pulse 102 H Pulse Source Pulse Oximeter Temp 98.1 F Temp Source Oral Pulse Oximetry (%) 98 Oxygen Delivery Method Room Air Intake Visit Reasons: EP-rt side stomach tick bite Intake Note: Patient presents with c/o tick bite on right abdomen that he noticed last night - removal of body was successful but unsure if head is still attached. Patient Tobacco Use Status: Never used Tobacco Allergies No Known Allergies Allergy (Verified 06/06/25 13:33) Do you need a note to return to daycare/school/sports/work: Yes HPI HPI Comments 2 History of Present Illness0 Details 45 y/o Male patient presents to the walk -in clinic with c/o tick bite on the abdomen. He reports removing a tick from his abdominal wall yesterday but believes a small piece may remain embedded. Denies fever, chills, fatigue, rash, joint pain, or muscle aches. No recent travel or known tick exposure beyond this incident. [facility] Medical History (Updated 06/06/25 @ 15:27 by Susie Caceres NP) Tick bite of abdominal wall Environmental allergies Diabetes Post-COVID syndrome History of COVID-19 Erectile dysfunction Surgical History Hx of colonoscopy History of esophagogastroduodenoscopy (EGD) History of anal fissures Family History Father Diabetes Thyroid disease Mother Diabetes Social History Housing: House Are you a primary health care facility administrator to a significant other at home: No Do you presently have visiting nurse or other home services: No Alcohol intake: never Patient Tobacco Use Status: Never used Tobacco e-Cigarette/Vaping Use: Never Used Substance Use Type: Marijuana service: No Current occupational status: employed Cognitive needs: No Hearing needs: No Vision needs: No Review of Systems Const All systems reviewed & are unremarkable except as noted in HPI and below Physical Exam Vital Signs: Last Vital Signs Temp 98.1 F 06/06/25 13:30 Pulse 102 H 06/06/25 13:30 BP 122/80 06/06/25 13:30 Pulse Ox 98 06/06/25 13:30 Oxygen Delivery Method Room Air 06/06/25 13:30 BMI result Body Mass Index 34.3 Const General: no acute distress Nutritional Appearance: obese Orientation/consciousness: patient oriented x3 GI Palpation (GI): Soft to palpation Abdomen image: 2 1. Small erythematous lesion noted on abdominal wall at site of reported tick bite. Small bull?s-eye rash noted. No drainage, swelling, or signs of infection. Possible small dark speck noted consistent with retained tick mouthpart. Neuro General: patient oriented x3, gait normal and moves all extremities Psych Speech and movement: Normal speech and movement present Assessment & Plan Assessment & Plan (1) Tick bite of abdominal wall: Code(s): S30.861A - Insect bite (nonvenomous) of abdominal wall, initial encounter; W57.XXXA - Bitten or stung by nonvenomous insect and other nonvenomous arthropods, initial encounter Qualifiers: Encounter type: initial encounter Qualified Code(s): S30.861A - Insect bite (nonvenomous) of abdominal wall, initial encounter; W57.XXXA - Bitten or stung by nonvenomous insect and other nonvenomous arthropods, initial encounter Plan: Tick bite, abdominal wall (suspected retained mouth-part) No signs of secondary infection or systemic illness. Area cleansed with antiseptic; removed retained mouth-part using sterile Needle. Apply topical antibiotic ointment and cover with clean dressing. Educate patient on signs of infection and Lyme disease (rash, fever, joint pain, fatigue). Advise to monitor site for 30 days; return if erythema Migrans or systemic symptoms develop. Ordered prophylactic antibiotic (Doxy). Medications: New 2 doxycycline hyclate 100 mg PO BID 2 caps 0RF S30.861A - Insect bite (nonvenomous) of abdominal wall, initial encounter, W57.XXXA - Bitten or stung by nonvenomous insect and other nonvenomous arthropods, initial encounter Coding Level of Care Code Est Pt Level 4 (50643) Diagnoses Tick bite of abdominal wall, initial encounter S30.861A; W57.XXXA Encounter type: initial encounter Time Spent (min) 20
--- OUTSIDE RECORDS SUMMARY | 2025-06-06 15:07 | XMS_ITS | Encounter Summary ---
Author Organization [facility] Address [address] [place] [address] Care Team Providers Care Supervisor Rubber Covering Name Role Phone David Montana MD Primary Care Provid er Encounter Details Date Type Department Care Team (Late st Contact Info) Description 12/07/2010 Orders Only [facility] Endocrinology [address] [place] [address] Kelly Carrillo MD [address] [address] Social History Tobacco Use Types Packs/Day Years [...] of this encounter Procedures * Due to [place] state law, this organization might not be [...] in this encounter Results * Due to [place] state law, this organization might not be [...] RESULT Final Resu lt Performing Organization Address [facility] Co de Phone Number [facility] [address] [place] [address] * (ABNORMAL) THYROID PEROXIDASE AND THYROGLOBULIN ANTIBODIES (12/07/2010) Thyroglobulin AB 63(H) 20 <20.0 IU/ML [facility] ANTI THYROID PEROXIDASE (TPO) (ANTI-THYROID MICROSOMAL AB) 376(H) 0 - 34 IU/ML [facility] 12/07/2010 12/07/2010 5:1 1 PM EDT Kelly Carrillo MD LABORATORY Final Result Performing Organization Address [facility] de Phone Number [facility] [address] [place] [address] * GLUTAMIC ACID DECARBOXYLASE-65 AUTOANTIBODIES (12/07/2010) ANTI LORETA ANTIBODIES <1.0 <=1.0 U/ML [facility] 12/07/2010 12/07/2010 5:1 1 PM EDT Kelly Carrillo MD LABORATORY Final Result Performing Organization Address [facility] Co de Phone Number [facility] [address] [place] [address] * (ABNORMAL) C-PEPTIDE (FASTING) (12/07/2010) C PEPTIDE 3.75(H) 0.8 - 3.1 NG/ML [facility] 12/07/2010 12/07/2010 5:1 1 PM EDT Kelly Carrillo MD LABORATORY Final Result Performing Organization Address [facility] Co de Phone Number [facility] [address] [place] [address] * ALANINE AMINOTRANSFERASE (ALT), SERUM (12/07/2010) ALT (SGPT) 51 9 - 60 U/L [facility] 12/07/2010 12/07/2010 5:1 1 PM EDT Kelly Carrillo MD LAB SAME DAY RESULT Final Resu lt Performing Organization Address [facility] Co de Phone Number [facility] [address] [place] [address] * ASPARTATE AMINOTRANSFERASE (AST), SERUM (12/07/2010) AST (SGOT) 24 10 - 40 U/L [facility] 12/07/2010 12/07/2010 5:1 1 PM EDT Kelly Carrillo MD LAB SAME DAY RESULT Final Resu lt Performing Organization Address [facility] de Phone Number [facility] [address] [place] [address] * (ABNORMAL) LIPID PANEL + CARDIAC RISK WITH REFLEX TO LDL DIRECT (12/07/2010) Pathologist [facility] CHOLESTEROL, TOTAL 154 125 - 200 MG/DL [...] MD LABORATORY Final Result Performing Organization Address [facility] Co de Phone Number [facility] [address] [place] [address] * VITAMIN B12 (12/07/2010) VITB12 528 200 - 1100 PG/ML [facility] 12/07/2010 12/07/2010 5:1 1 PM EDT us Kelly Carrillo MD LABORATORY Final Result [facility] [address] [place] [address] * TSH (THYROTROPIN) (12/07/2010) Pathologist [facility] TSH, THYROTROPIN 1.929 0.40 - 4.50 UIU/ML [facility] 12/07/2010 12/07/2010 5:1 1 PM EDT us Kelly Carrillo MD LABORATORY Final Result Performing Organization Address [facility] Co de Phone Number [facility] [address] [place] [address] * HEMATOCRIT (12/07/2010) Pathologist [facility] HCT (HEMATOCRIT) 45.8 38.5 - 50.0 % [facility] 12/07/2010 12/07/2010 5:1 1 PM EDT us Kelly Carrillo MD LAB SAME DAY RESULT Final Resu lt Performing Organization Address [facility] Co de Phone Number [facility] [address] [place] [address] * CELIAC DISEASE PANEL WITHOUT GLIADIN (12/07/2010) Pathologist [facility] IGA 329 81 - 463 MG/DL [facility] [...] MD LABORATORY Final Result Performing Organization Address City/[facility]/ZIP Co de Phone Number [facility] [address] [place] [address] * POTASSIUM - SERUM (12/07/2010) POTASSIUM 4.0 3.5 - 5.3 MMOL/L [facility] 12/07/2010 12/07/2010 5:1 1 PM EDT Kelly Carrillo MD LAB SAME DAY RESULT Final Resu lt Performing Organization Address City/[facility]/ZIP Co de Phone Number [facility] [address] [place] [address] * MICROALBUMIN (RANDOM URINE) (12/07/2010) CREATININE (URINE) 217 20 - 370 MG/DL [facility] Microalbumin (Urine) 5 NOT ESTABLISHED [facility] MICROALBUMIN/CRE AT RATIO (URINE) 2 0 - 29 [facility] Comment:UNITS: MCG/MG CREATI NINE 12/07/2010 12/07/2010 5:1 1 PM EDT Kelly Carrillo MD LABORATORY Final Result Performing Organization Address [facility] Co de Phone Number [facility] [address] [place] [address] * (ABNORMAL) HEMOGLOBIN A1C (12/07/2010) Hemoglobin A1C 6.7(H) 0.0 - 5.7 % [facility] GLUCOSE MEAN VALUE 161 MG/DL [facility] 12/07/2010 12/07/2010 5:1 1 PM EDT Kelly Carrillo MD LABORATORY Final Result Performing Organization Address City/[facility] Co de Phone Number [facility] [address] [place] [address] documented in this encounter Visit Diagnoses Diagnosis Type I (juvenile type) diabetes mellitus without mention of complication, not stated as uncontrolled documented in this encounter Care Teams Supervisor Rubber Covering Relationship Specialty Start Date End Date David Montana MD PCP - General Family Medicine 09/04/10 documented as of this encounter
--- OUTSIDE RECORDS SUMMARY | 2025-06-06 15:07 | XMS_ITS | Clinical Summary ---
Author Organization [facility] Address [address] [place] [address] Care Team Providers Care Alarm Installation Technician Name Role Phone David Montana MD Primary [...] Microalbumin 12/08/2011 12/07/2010 COVID-19 Vaccine ( - 2024-2 6 season) 2025 Influenza (#1) 2025 Zoster (Shingrix) [...] complete this topic Procedures * Due to [place] [employer] law, this organization might not be sharing negative HIV tests. Procedure Name Priority Date/Time Associated Diagnosis Comments MICROALBUMIN (RANDOM URINE) Routine 12/07/2010 DM w/o complication type I (HCC) LIPID PANEL + CARDIAC RISK WITH REFLEX TO LDL DIRECT Routine 12/07/2010 DM w/o complication type I (HCC) from Last 3 Months or Most Recently Relevant to Health Maintenance Results * Due to [place] state law, this organization might not be [...] MD LABORATORY Final Result [facility] [address] [place] [address] * MICROALBUMIN (RANDOM URINE) (12/07/2010) CREATININE (URINE) 217 20 - 370 MG/DL [facility] Microalbumin (Urine) 5 NOT ESTABLISHED [facility] MICROALBUMIN/CRE AT RATIO (URINE) 2 0 - 29 [facility] Comment:UNITS: MCG/MG CREATI NINE 12/07/2010 12/07/2010 5:1 1 PM EDT Kelly Carrillo MD LABORATORY Final Result [facility] [address] [place] [address] from Last 3 Months or Most Recently Relevant to Health Maintenance Insurance [facility]NA[facility]IVE [facility] FFS DIRECT CARE (HMO) Care Teams Alarm Installation Technician Relationship Specialty Start Date End Date David Montana MD PCP - General Family Medicine 09/04/10
== END 2025-06-06 14:21 | disposition home or self-care (01) ==
PROVIDERS: PCP Internal Medicine; Visit Provider Nurse Practitioner Family
DX: S30.861A Insect bite (nonvenomous) of abdominal wall, initial encounter (principal); W57.XXXA Bitten or stung by nonvenomous insect and other nonvenomous arthropods, initial encounter

== ENCOUNTER 2025-07-05 08:36 | Outpatient (REF) | payer OTHER, SELFPAY ==
--- NOTE | ~2025-07-05 | XR_ITS ---
EXAMINATION: XR SHOULDER, LEFT CLINICAL INFORMATION: M25.512 - Pain in left shoulder COMPARISON: None available. TECHNIQUE: Two views of the left shoulder. FINDINGS: No visible acute fracture, dislocation or suspicious bony lesion. Mild acromioclavicular arthritis. Glenohumeral articulation is maintained. Limited evaluation of the joint space. No abnormal soft tissue calcification. XR/XR shoulder LT min 2V IMPRESSION: No acute findings Electronically signed by: Shad Vega MD 07/06/2025 09:52 AM EST
== END 2025-07-05 08:37 | disposition home or self-care (01) ==
LOC: HO.HOSX 08:36
PROVIDERS: Visit Provider Orthopaedic Surgery
DX: M25.312 Other instability, left shoulder (principal); M25.512 Pain in left shoulder; G89.29 Other chronic pain; Z79.899 Other long term (current) drug therapy
CPT/HCPCS: 73030

== ENCOUNTER 2025-07-05 14:45 | Outpatient (AMB) | payer OTHER, SELFPAY ==
--- NOTE | 2025-07-05 15:03 | MHC.OFFVIS ---
Vital Signs 07/05/25 15:07 Height 5 ft 5 in Weight 205 lb BMI 34.1 Handedness Right Intake Visit Reasons: Left shoulder pain and weakness Intake Note: Aguilar is a 45 year old right hand dominant male who presents with complaints of progressively worsening left shoulder pain and weakness. The patient describes his pain as sharp in nature. Most of the pain is along the lateral aspect of his left shoulder. The patient states that he injured his left shoulder approximately 1 year ago while working out at the gym. The patient states that he was doing a shoulder press when he felt a ?pop? in his left shoulder. Since that time he has had difficulty lifting his left hand above shoulder height. He has been to formal physical therapy which gave him minimal relief. He has also tried Tylenol, anti-inflammatory medicines and a home exercise program which gave him no relief. At this point the patient's left shoulder pain and weakness or interfering with his activities of daily living and his ability to sleep well through the night. Allergies No Known Allergies Allergy (Verified 07/05/25 15:07) Medication List - Last Reconciled 07/05/25 by Mohit Ramesh MD albuterol sulfate 90 mcg/actuation (ProAir HFA) 1 inh inhalation QID PRN 30 days blood sugar diagnostic (FreeStyle Lite Strips) Use to check blood sugar TIDAC blood-glucose meter (Shave ClubStyle Lite Meter kit) Use to check blood sugar TIDAC blood-glucose sensor (Shave ClubStyle Jalyn 2 Plus Sensor device) Use As directed [Bp Monitor As directed] cetirizine 10 mg PO DAILY dicyclomine 20 mg PO TID 30 days doxycycline hyclate 100 mg PO BID escitalopram oxalate (Lexapro) 5 mg PO DAILY flash glucose scanning reader (FreeStyle Jalyn 2 Branch) Once a day flash glucose sensor (FreeStyle Jalyn 2 Sensor kit) As directed glipizide 10 mg PO DAILY Jardiance (empagliflozin) 25 mg PO DAILY NS lancets (FreeStyle Lancets) Use to check blood sugar TIDAC lisinopril 5 mg PO DAILY omeprazole 40 mg (2 x 20 mg) PO QAM 30 days pioglitazone 45 mg PO DAILY semaglutide (Ozempic) 0.25 mg (0.368 mL) subcut QWEEK tadalafil 20 mg PO ONCE PRN 30 days tadalafil 10 mg PO DAILY 90 days PFSH Medical History Tick bite of abdominal wall Environmental allergies Diabetes Post-COVID syndrome History of COVID-19 Erectile dysfunction Surgical History Hx of colonoscopy History of esophagogastroduodenoscopy (EGD) History of anal fissures Family History Father Diabetes Thyroid disease Mother Diabetes Social History Housing: House Are you a primary dialysis patient care technician to a significant other at home: No Do you presently have visiting nurse or other home services: No Alcohol intake: never Patient Tobacco Use Status: Never used Tobacco e-Cigarette/Vaping Use: Never Used Substance Use Type: Marijuana service: No Current occupational status: employed Cognitive needs: No Hearing needs: No Vision needs: No Physical Exam Vital Signs: BMI result Body Mass Index 34.1 Const Other: Well-nourished well-developed very friendly male awake alert and oriented x3 in no acute distress Extrem Other: Left shoulder examination shows decreased range of motion when compared to his right shoulder, 4+ out of 5 strength with supraspinatus testing, positive impingement signs, tenderness over his acromioclavicular joint, no instability Results Reviewed Results Reviewed: X-rays of the patient's left shoulder show moderate to severe acromioclavicular joint narrowing, a type 2 acromion, no acute bony abnormalities Assessment & Plan Assessment & Plan (1) Rotator cuff insufficiency of left shoulder: Code(s): M25.312 - Other instability, left shoulder Category: Medical Plan Mr. Brannon presents with left shoulder pain and weakness due to impingement syndrome as well as possible rotator cuff tearing. Thus, I will send the patient for an MRI of his left shoulder for further evaluation. I will see him back once the MRI is completed to discuss the findings and treatment options. He will continue with his range of motion exercises meantime. Feel free to call me at any time should questions regarding his orthopedic management arise. Thank you very much for asking me to see this very friendly gentleman. I spent 21 minutes in reviewing the patient's records and imaging studies, seeing the patient and documenting in the medical record. Orders: Orders XR shoulder LT min 2V 07/05/25 G89.29 - Other chronic pain, M25.512 - Pain in left shoulder MR shoulder LT wo con Today M25.312 - Other instability, left shoulder Coding Level of Care Code New Pt Level 3 (93001) Complex visit Add On G2211 Diagnoses Rotator cuff insufficiency of left shoulder M25.312
[2025-07-05 15:07] VITALS: BMI 34.1
--- OUTSIDE RECORDS SUMMARY | 2025-07-05 20:50 | XMS_ITS | Encounter Summary ---
Author Organization [facility] Address [address] [place] [address] Care Team Providers Care Pen Maker Name Role Phone David Montana MD Primary Care Provid er Encounter Details Date Type Department Care Team (Late st Contact Info) Description 12/07/2010 Orders Only [facility] Endocrinology [address] [place] [address] Kelly Carrillo MD [address] [address] Social History Tobacco Use Types Packs/Day Years [...] of this encounter Procedures * Due to [place] state law, this organization might not be [...] in this encounter Results * Due to [place] state law, this organization might not be [...] RESULT Final Resu lt Performing Organization Address [facility] Co de Phone Number [facility] [address] [place] [address] * (ABNORMAL) THYROID PEROXIDASE AND THYROGLOBULIN ANTIBODIES (12/07/2010) Thyroglobulin AB 63(H) 20 <20.0 IU/ML [facility] ANTI THYROID PEROXIDASE (TPO) (ANTI-THYROID MICROSOMAL AB) 376(H) 0 - 34 IU/ML [facility] 12/07/2010 12/07/2010 5:1 1 PM EDT Kelly Carrillo MD LABORATORY Final Result Performing Organization Address [facility] de Phone Number [facility] [address] [place] [address] * GLUTAMIC ACID DECARBOXYLASE-65 AUTOANTIBODIES (12/07/2010) ANTI LORETA ANTIBODIES <1.0 <=1.0 U/ML [facility] 12/07/2010 12/07/2010 5:1 1 PM EDT Kelly Carrillo MD LABORATORY Final Result Performing Organization Address [facility] Co de Phone Number [facility] [address] [place] [address] * (ABNORMAL) C-PEPTIDE (FASTING) (12/07/2010) C PEPTIDE 3.75(H) 0.8 - 3.1 NG/ML [facility] 12/07/2010 12/07/2010 5:1 1 PM EDT Kelly Carrillo MD LABORATORY Final Result Performing Organization Address [facility] Co de Phone Number [facility] [address] [place] [address] * ALANINE AMINOTRANSFERASE (ALT), SERUM (12/07/2010) ALT (SGPT) 51 9 - 60 U/L [facility] 12/07/2010 12/07/2010 5:1 1 PM EDT Kelly Carrillo MD LAB SAME DAY RESULT Final Resu lt Performing Organization Address [facility] Co de Phone Number [facility] [address] [place] [address] * ASPARTATE AMINOTRANSFERASE (AST), SERUM (12/07/2010) AST (SGOT) 24 10 - 40 U/L [facility] 12/07/2010 12/07/2010 5:1 1 PM EDT Kelly Carrillo MD LAB SAME DAY RESULT Final Resu lt Performing Organization Address [facility] de Phone Number [facility] [address] [place] [address] * (ABNORMAL) LIPID PANEL + CARDIAC RISK WITH REFLEX TO LDL DIRECT (12/07/2010) Pathologist [facility] CHOLESTEROL, TOTAL 154 125 - 200 MG/DL [...] MD LABORATORY Final Result Performing Organization Address [facility] Co de Phone Number [facility] [address] [place] [address] * VITAMIN B12 (12/07/2010) VITB12 528 200 - 1100 PG/ML [facility] 12/07/2010 12/07/2010 5:1 1 PM EDT us Kelly Carrillo MD LABORATORY Final Result [facility] [address] [place] [address] * TSH (THYROTROPIN) (12/07/2010) Pathologist [facility] TSH, THYROTROPIN 1.929 0.40 - 4.50 UIU/ML [facility] 12/07/2010 12/07/2010 5:1 1 PM EDT us Kelly Carrillo MD LABORATORY Final Result Performing Organization Address [facility] Co de Phone Number [facility] [address] [place] [address] * HEMATOCRIT (12/07/2010) Pathologist [facility] HCT (HEMATOCRIT) 45.8 38.5 - 50.0 % [facility] 12/07/2010 12/07/2010 5:1 1 PM EDT us Kelly Carrillo MD LAB SAME DAY RESULT Final Resu lt Performing Organization Address [facility] Co de Phone Number [facility] [address] [place] [address] * CELIAC DISEASE PANEL WITHOUT GLIADIN (12/07/2010) Pathologist [facility] IGA 329 81 - 463 MG/DL [facility] [...] MD LABORATORY Final Result Performing Organization Address City/[facility]/ZIP Co de Phone Number [facility] [address] [place] [address] * POTASSIUM - SERUM (12/07/2010) POTASSIUM 4.0 3.5 - 5.3 MMOL/L [facility] 12/07/2010 12/07/2010 5:1 1 PM EDT Kelly Carrillo MD LAB SAME DAY RESULT Final Resu lt Performing Organization Address City/[facility]/ZIP Co de Phone Number [facility] [address] [place] [address] * MICROALBUMIN (RANDOM URINE) (12/07/2010) CREATININE (URINE) 217 20 - 370 MG/DL [facility] Microalbumin (Urine) 5 NOT ESTABLISHED [facility] MICROALBUMIN/CRE AT RATIO (URINE) 2 0 - 29 [facility] Comment:UNITS: MCG/MG CREATI NINE 12/07/2010 12/07/2010 5:1 1 PM EDT Kelly Carrillo MD LABORATORY Final Result Performing Organization Address [facility] Co de Phone Number [facility] [address] [place] [address] * (ABNORMAL) HEMOGLOBIN A1C (12/07/2010) Hemoglobin A1C 6.7(H) 0.0 - 5.7 % [facility] GLUCOSE MEAN VALUE 161 MG/DL [facility] 12/07/2010 12/07/2010 5:1 1 PM EDT Kelly Carrillo MD LABORATORY Final Result Performing Organization Address City/[facility] Co de Phone Number [facility] [address] [place] [address] documented in this encounter Visit Diagnoses Diagnosis Type I (juvenile type) 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
--- OUTSIDE RECORDS SUMMARY | 2025-07-05 20:51 | XMS_ITS | Clinical Summary ---
Author Organization [facility] Address [address] [place] [address] Care Team Providers Care Nipple Threader Name Role Phone David Montana MD Primary [...] complete this topic Procedures * Due to [place] [employer] law, this organization might not be sharing negative HIV tests. Procedure Name Priority Date/Time Associated Diagnosis Comments MICROALBUMIN (RANDOM URINE) Routine 12/07/2010 DM w/o complication type I (HCC) LIPID PANEL + CARDIAC RISK WITH REFLEX TO LDL DIRECT Routine 12/07/2010 DM w/o complication type I (HCC) from Last 3 Months or Most Recently Relevant to Health Maintenance Results * Due to [place] state law, this organization might not be [...] MD LABORATORY Final Result [facility] [address] [place] [address] * MICROALBUMIN (RANDOM URINE) (12/07/2010) CREATININE (URINE) 217 20 - 370 MG/DL [facility] Microalbumin (Urine) 5 NOT ESTABLISHED [facility] MICROALBUMIN/CRE AT RATIO (URINE) 2 0 - 29 [facility] Comment:UNITS: MCG/MG CREATI NINE 12/07/2010 12/07/2010 5:1 1 PM EDT Kelly Carrillo MD LABORATORY Final Result [facility] [address] [place] [address] from Last 3 Months or Most Recently Relevant to Health Maintenance Insurance INACTIVE [facility] FFS DIRECT CARE (HMO) Care Teams Nipple Threader Relationship Specialty Start Date End Date David Montana MD PCP - General Family Medicine 09/04/10
== END 2025-07-05 15:18 | disposition home or self-care (01) ==
LOC: HO.HOS 14:46
PROVIDERS: PCP Internal Medicine; Visit Provider Orthopaedic Surgery
DX: M25.312 Other instability, left shoulder (principal)
CPT/HCPCS: 99203

== ENCOUNTER 2025-07-06 11:09 | Outpatient (REF) | payer OTHER, SELFPAY ==
[2025-07-06 14:00] LABS: MANUAL DIFF FLAG NO
[2025-07-06 14:04] LABS: Hematocrit 44.5 % (42.0-52.0); Hemoglobin 15.6 g/dl (14.0-18.0); Imm Gran Abs Auto 0.05 X10*3/uL (0.00-0.03); Imm Gran Pct Auto 0.7 % (0.0-0.4); Lymphocytes Absolute Auto 2.3 X10*3/uL (1.2-4.9); Mean Corpuscular HGB Conc 35.1 g/dl (31.0-36.0); Mean Corpuscular Hemoglobin 31.4 pg (27.0-33.0); Mean Corpuscular Volume 89.5 fL (80.0-98.0); NRBC Abs Auto 0.000 X10*3/uL (0.0-0.012); NRBC Pct Auto 0.0 /100WBC (0.0-0.2); Platelet Count 226 X10*3/uL (160-400); Red Blood Count 4.97 X10*6/uL (4.60-5.80); White Blood Count 6.8 X10*3/uL (4.8-10.8)
[2025-07-06 14:27] LABS: Alanine Aminotransferase 69 U/L (0-40); Albumin Level 4.7 g/dL (3.5-5.0); Alkaline Phosphatase 51 U/L (39-117); Anion Gap 12 (12-20); Aspartate Amino Transferase 33 U/L (5-37); Blood Urea Nitrogen 21 mg/dL (9-16); Calcium 9.2 mg/dL (8.4-10.2); Carbon Dioxide 24 mmol/L (22-29); Chloride 109 mmol/L (96-108); Estimated Glomerular Filt Rate > 60; Potassium 3.9 mmol/L (3.3-5.1); Sodium 141 mmol/L (135-145); Total Protein 6.9 g/dL (6.5-8.0)
--- OUTSIDE RECORDS SUMMARY | 2025-07-06 17:52 | XMS_ITS | Encounter Summary ---
Author Organization [facility] Address [address] [place] [address] Care Team Providers Care Manager Cash Name Role Phone David Montana MD Primary Care Provid er Encounter Details Date Type Department Care Team (Late st Contact Info) Description 12/07/2010 Orders Only [facility] Endocrinology [address] [place] [address] Kelly Carrillo MD [address] [address] Social History Tobacco Use Types Packs/Day Years [...] RESULT Final Resu lt Performing Organization Address [facility] Co de Phone Number [facility] [address] [place] [address] * (ABNORMAL) THYROID PEROXIDASE AND THYROGLOBULIN ANTIBODIES (12/07/2010) Thyroglobulin AB 63(H) 20 <20.0 IU/ML [facility] ANTI THYROID PEROXIDASE (TPO) (ANTI-THYROID MICROSOMAL AB) 376(H) 0 - 34 IU/ML [facility] 12/07/2010 12/07/2010 5:1 1 PM EDT Kelly Carrillo MD LABORATORY Final Result Performing Organization Address [facility] de Phone Number [facility] [address] [place] [address] * GLUTAMIC ACID DECARBOXYLASE-65 AUTOANTIBODIES (12/07/2010) ANTI LORETA ANTIBODIES <1.0 <=1.0 U/ML [facility] 12/07/2010 12/07/2010 5:1 1 PM EDT Kelly Carrillo MD LABORATORY Final Result Performing Organization Address [facility] Co de Phone Number [facility] [address] [place] [address] * (ABNORMAL) C-PEPTIDE (FASTING) (12/07/2010) C PEPTIDE 3.75(H) 0.8 - 3.1 NG/ML [facility] 12/07/2010 12/07/2010 5:1 1 PM EDT Kelly Carrillo MD LABORATORY Final Result Performing Organization Address [facility] Co de Phone Number [facility] [address] [place] [address] * ALANINE AMINOTRANSFERASE (ALT), SERUM (12/07/2010) ALT (SGPT) 51 9 - 60 U/L [facility] 12/07/2010 12/07/2010 5:1 1 PM EDT Kelly Carrillo MD LAB SAME DAY RESULT Final Resu lt Performing Organization Address [facility] Co de Phone Number [facility] [address] [place] [address] * ASPARTATE AMINOTRANSFERASE (AST), SERUM (12/07/2010) AST (SGOT) 24 10 - 40 U/L [facility] 12/07/2010 12/07/2010 5:1 1 PM EDT Kelly Carrillo MD LAB SAME DAY RESULT Final Resu lt Performing Organization Address [facility] de Phone Number [facility] [address] [place] [address] * (ABNORMAL) LIPID PANEL + CARDIAC RISK WITH REFLEX TO LDL DIRECT (12/07/2010) Pathologist [facility] CHOLESTEROL, TOTAL 154 125 - 200 MG/DL [...] LABORATORY Final Result Performing Organization Address [facility] Co de Phone Number [facility] [address] [place] [address] * VITAMIN B12 (12/07/2010) VITB12 528 200 - 1100 PG/ML [facility] 12/07/2010 12/07/2010 5:1 1 PM EDT us Kelly Carrillo MD LABORATORY Final Result [facility] [address] [place] [address] * TSH (THYROTROPIN) (12/07/2010) Pathologist [facility] TSH, THYROTROPIN 1.929 0.40 - 4.50 UIU/ML [facility] 12/07/2010 12/07/2010 5:1 1 PM EDT us Kelly Carrillo MD LABORATORY Final Result Performing Organization Address [facility] Co de Phone Number [facility] [address] [place] [address] * HEMATOCRIT (12/07/2010) Pathologist [facility] HCT (HEMATOCRIT) 45.8 38.5 - 50.0 % [facility] 12/07/2010 12/07/2010 5:1 1 PM EDT us Kelly Carrillo MD LAB SAME DAY RESULT Final Resu lt Performing Organization Address [facility] Co de Phone Number [facility] [address] [place] [address] * CELIAC DISEASE PANEL WITHOUT GLIADIN (12/07/2010) Pathologist [facility] IGA 329 81 - 463 MG/DL [facility] [...] MD LABORATORY Final Result Performing Organization Address City/[facility]/ZIP Co de Phone Number [facility] [address] [place] [address] * POTASSIUM - SERUM (12/07/2010) POTASSIUM 4.0 3.5 - 5.3 MMOL/L [facility] 12/07/2010 12/07/2010 5:1 1 PM EDT Kelly Carrillo MD LAB SAME DAY RESULT Final Resu lt Performing Organization Address City/[facility]/ZIP Co de Phone Number [facility] [address] [place] [address] * MICROALBUMIN (RANDOM URINE) (12/07/2010) CREATININE (URINE) 217 20 - 370 MG/DL [facility] Microalbumin (Urine) 5 NOT ESTABLISHED [facility] MICROALBUMIN/CRE AT RATIO (URINE) 2 0 - 29 [facility] Comment:UNITS: MCG/MG CREATI NINE 12/07/2010 12/07/2010 5:1 1 PM EDT Kelly Carrillo MD LABORATORY Final Result Performing Organization Address [facility] Co de Phone Number [facility] [address] [place] [address] * (ABNORMAL) HEMOGLOBIN A1C (12/07/2010) Hemoglobin A1C 6.7(H) 0.0 - 5.7 % [facility] GLUCOSE MEAN VALUE 161 MG/DL [facility] 12/07/2010 12/07/2010 5:1 1 PM EDT Kelly Carrillo MD LABORATORY Final Result Performing Organization Address City/[facility] Co de Phone Number [facility] [address] [place] [address] documented in this encounter Visit Diagnoses Diagnosis Type I (juvenile type) diabetes mellitus without mention of complication, not stated as uncontrolled documented in this encounter Care Teams Manager Cash Relationship Specialty Start Date End Date David Montana MD PCP - General Family Medicine 09/04/10 documented as of this encounter
--- OUTSIDE RECORDS SUMMARY | 2025-07-06 17:52 | XMS_ITS | Clinical Summary ---
Author Organization [facility] Address [address] [place] [address] Care Team Providers Care Water Taxi Boat Mate Name Role Phone David Montana MD Primary [...] complete this topic Procedures * Due to [place] [employer] law, this organization might not be sharing negative HIV tests. Procedure Name Priority Date/Time Associated Diagnosis Comments MICROALBUMIN (RANDOM URINE) Routine 12/07/2010 DM w/o complication type I (HCC) LIPID PANEL + CARDIAC RISK WITH REFLEX TO LDL DIRECT Routine 12/07/2010 DM w/o complication type I (HCC) from Last 3 Months or Most Recently Relevant to Health Maintenance Results * Due to [place] state law, this organization might not be [...] MD LABORATORY Final Result [facility] [address] [place] [address] * MICROALBUMIN (RANDOM URINE) (12/07/2010) CREATININE (URINE) 217 20 - 370 MG/DL [facility] Microalbumin (Urine) 5 NOT ESTABLISHED [facility] MICROALBUMIN/CRE AT RATIO (URINE) 2 0 - 29 [facility] Comment:UNITS: MCG/MG CREATI NINE 12/07/2010 12/07/2010 5:1 1 PM EDT Kelly Carrillo MD LABORATORY Final Result [facility] [address] [place] [address] from Last 3 Months or Most Recently Relevant to Health Maintenance Insurance INACTIVE [facility] FFS DIRECT CARE (HMO) Care Teams Water Taxi Boat Mate Relationship Specialty Start Date End Date David Montana MD PCP - General Family Medicine 09/04/10
== END 2025-07-06 11:10 | disposition home or self-care (01) ==
LOC: HO.HMGCLDS 11:09
PROVIDERS: PCP Internal Medicine; Visit Provider Internal Medicine
DX: I10 Essential (primary) hypertension (principal); E13.9 Other specified diabetes mellitus without complications; R79.89 Other specified abnormal findings of blood chemistry
CPT/HCPCS: 36415; 80053; 83036; 83721; 85025

== ENCOUNTER 2025-07-20 08:07 | Outpatient (AMB) | payer OTHER, SELFPAY ==
--- OUTSIDE RECORDS SUMMARY | 2025-07-20 08:10 | XMS_ITS | Clinical Summary ---
Author Organization [facility] Address [address] [place] [address] Care Team Providers Care Wire Rigger Name Role Phone David Montana MD Primary [...] this topic Procedures * Due to [place] [employer] law, this organization might not be sharing [...] MD LABORATORY Final Result [facility] [address] [place] [address] * MICROALBUMIN (RANDOM URINE) (12/07/2010) CREATININE (URINE) 217 20 - 370 MG/DL [facility] Microalbumin (Urine) 5 NOT ESTABLISHED [facility] MICROALBUMIN/CRE AT RATIO (URINE) 2 0 - 29 [facility] Comment:UNITS: MCG/MG CREATI NINE 12/07/2010 12/07/2010 5:1 1 PM EDT Kelly Carrillo MD LABORATORY Final Result [facility] [address] [place] [address] from Last 3 Months or Most Recently Relevant to Health Maintenance Insurance INACTIVE [facility] FFS DIRECT CARE (HMO) Care Teams Wire Rigger Relationship Specialty Start Date End Date David Montana MD PCP - General Family Medicine 09/04/10
--- OUTSIDE RECORDS SUMMARY | 2025-07-20 08:10 | XMS_ITS | Encounter Summary ---
Author Organization [facility] Address [address] [place] [address] Care Team Providers Care Geophysical Engineer Name Role Phone David Montana MD Primary Care Provid er Encounter Details Date Type Department Care Team (Late st Contact Info) Description 12/07/2010 Orders Only [facility] Endocrinology [address] [place] [address] Kelly Carrillo MD [address] [address] Social History Tobacco Use Types Packs/Day Years [...] Resu lt Performing Organization Address [facility] Co de Phone Number [facility] [address] [place] [address] * (ABNORMAL) THYROID PEROXIDASE AND THYROGLOBULIN ANTIBODIES (12/07/2010) Thyroglobulin AB 63(H) 20 <20.0 IU/ML [facility] ANTI THYROID PEROXIDASE (TPO) (ANTI-THYROID MICROSOMAL AB) 376(H) 0 - 34 IU/ML [facility] 12/07/2010 12/07/2010 5:1 1 PM EDT Kelly Carrillo MD LABORATORY Final Result Performing Organization Address [facility] de Phone Number [facility] [address] [place] [address] * GLUTAMIC ACID DECARBOXYLASE-65 AUTOANTIBODIES (12/07/2010) ANTI LORETA ANTIBODIES <1.0 <=1.0 U/ML [facility] 12/07/2010 12/07/2010 5:1 1 PM EDT Kelly Carrillo MD LABORATORY Final Result Performing Organization Address [facility] Co de Phone Number [facility] [address] [place] [address] * (ABNORMAL) C-PEPTIDE (FASTING) (12/07/2010) C PEPTIDE 3.75(H) 0.8 - 3.1 NG/ML [facility] 12/07/2010 12/07/2010 5:1 1 PM EDT Kelly Carrillo MD LABORATORY Final Result Performing Organization Address [facility] Co de Phone Number [facility] [address] [place] [address] * ALANINE AMINOTRANSFERASE (ALT), SERUM (12/07/2010) ALT (SGPT) 51 9 - 60 U/L [facility] 12/07/2010 12/07/2010 5:1 1 PM EDT Kelly Carrillo MD LAB SAME DAY RESULT Final Resu lt Performing Organization Address [facility] Co de Phone Number [facility] [address] [place] [address] * ASPARTATE AMINOTRANSFERASE (AST), SERUM (12/07/2010) AST (SGOT) 24 10 - 40 U/L [facility] 12/07/2010 12/07/2010 5:1 1 PM EDT Kelly Carrillo MD LAB SAME DAY RESULT Final Resu lt Performing Organization Address [facility] de Phone Number [facility] [address] [place] [address] * (ABNORMAL) LIPID PANEL + CARDIAC RISK [...] MD LABORATORY Final Result Performing Organization Address [facility] Co de Phone Number [facility] [address] [place] [address] * VITAMIN B12 (12/07/2010) VITB12 528 200 - 1100 PG/ML [facility] 12/07/2010 12/07/2010 5:1 1 PM EDT us Kelly Carrillo MD LABORATORY Final Result [facility] [address] [place] [address] * TSH (THYROTROPIN) (12/07/2010) Pathologist [facility] TSH, THYROTROPIN 1.929 0.40 - 4.50 UIU/ML [facility] 12/07/2010 12/07/2010 5:1 1 PM EDT us Kelly Carrillo MD LABORATORY Final Result Performing Organization Address [facility] Co de Phone Number [facility] [address] [place] [address] * HEMATOCRIT (12/07/2010) Pathologist [facility] HCT (HEMATOCRIT) 45.8 38.5 - 50.0 % [facility] 12/07/2010 12/07/2010 5:1 1 PM EDT us Kelly Carrillo MD LAB SAME DAY RESULT Final Resu lt Performing Organization Address [facility] Co de Phone Number [facility] [address] [place] [address] * CELIAC DISEASE PANEL WITHOUT GLIADIN (12/07/2010) [...] LABORATORY Final Result Performing Organization Address City/[facility]/ZIP Co de Phone Number [facility] [address] [place] [address] * POTASSIUM - SERUM (12/07/2010) POTASSIUM 4.0 3.5 - 5.3 MMOL/L [facility] 12/07/2010 12/07/2010 5:1 1 PM EDT Kelly Carrillo MD LAB SAME DAY RESULT Final Resu lt Performing Organization Address City/[facility]/ZIP Co de Phone Number [facility] [address] [place] [address] * MICROALBUMIN (RANDOM URINE) (12/07/2010) CREATININE (URINE) 217 20 - 370 MG/DL [facility] Microalbumin (Urine) 5 NOT ESTABLISHED [facility] MICROALBUMIN/CRE AT RATIO (URINE) 2 0 - 29 [facility] Comment:UNITS: MCG/MG CREATI NINE 12/07/2010 12/07/2010 5:1 1 PM EDT Kelly Carrillo MD LABORATORY Final Result Performing Organization Address [facility] Co de Phone Number [facility] [address] [place] [address] * (ABNORMAL) HEMOGLOBIN A1C (12/07/2010) Hemoglobin A1C 6.7(H) 0.0 - 5.7 % [facility] GLUCOSE MEAN VALUE 161 MG/DL [facility] 12/07/2010 12/07/2010 5:1 1 PM EDT Kelly Carrillo MD LABORATORY Final Result Performing Organization Address City/[facility] Co de Phone Number [facility] [address] [place] [address] documented in this encounter Visit Diagnoses Diagnosis Type I (juvenile type) diabetes mellitus without mention of complication, not stated as uncontrolled documented in this encounter Care Teams Geophysical Engineer Relationship Specialty Start Date End Date David Montana MD PCP - General Family Medicine 09/04/10 documented as of this encounter
[2025-07-20 08:14] VITALS: BP 124/80; PULSE 60; O2SAT 97; BMI 34.9
--- NOTE | 2025-07-20 08:14 | A.OFFPC_ITS ---
Vital Signs 07/20/25 08:14 Height 5 ft 5 in Weight 210 lb BMI 34.9 BP 124/80 Blood Pressure Location Lt brachial Position Sitting Pulse 60 Pulse Source Pulse Oximeter Pulse Oximetry (%) 97 Intake Visit Reasons: 3 mo follow up Allergies No Known Allergies Allergy (Verified 07/20/25 08:16) Medication List - Last Reconciled 07/20/25 by Luis Leonard MD albuterol sulfate 90 mcg/actuation (ProAir HFA) 1 inh inhalation QID PRN 30 days blood sugar diagnostic (FreeStyle Lite Strips) Use to check blood sugar TIDAC blood-glucose meter (FreeStyle Lite Meter kit) Use to check blood sugar TIDAC blood-glucose sensor (FreeStyle Jalyn 2 Plus Sensor device) Use As directed [Bp Monitor As directed] cetirizine 10 mg PO DAILY dicyclomine 20 mg PO TID 30 days escitalopram oxalate (Lexapro) 5 mg PO DAILY flash glucose scanning reader (FreeStyle Jalyn 2 [place]) Once a day flash glucose sensor (FreeStyle Jalyn 2 Sensor kit) As directed glipizide 10 mg PO DAILY Jardiance (empagliflozin) 25 mg PO DAILY NS lancets (FreeStyle Lancets) Use to check blood sugar TIDAC lisinopril 5 mg PO DAILY omeprazole 40 mg (2 x 20 mg) PO QAM 30 days pioglitazone 45 mg PO DAILY semaglutide (Ozempic) 0.25 mg (0.368 mL) subcut QWEEK tadalafil 20 mg PO ONCE PRN 30 days tadalafil 10 mg PO DAILY 90 days Tobacco use date assessed: 01/04/25 Dental Screening Dental Screen Date: 01/04/25 HPI HPI Comments History of Present Illness Details History of Present Illness The patient is a 45-year-old male presenting for a three-month follow-up for chronic condition management. Type 2 Diabetes Mellitus: - The patient uses a continuous glucose monitor and reports good glycemic control. - Postprandial glucose levels peak aroun d 180 and then decrease, with a general range of 115-135 mg/dL. - His current medications include Ozempi c 0.25 mg, pioglitazone 45 mg, Jardiance 25 mg, and glipizide 10 mg. - A recent lab from the of the h showed an HbA1c of 6.5. - He reports episodes of hypoglycemia on ly if he works for long periods and misses a meal. - He started Ozempic in the summer and e xperienced initial diarrhea, which has since resolved. - He has not experienced significant matt ght loss but notes a slight reduction in abdominal girth. Anxiety: - The patient has been taking escitalopr am 5 mg for anxiety, which he started a few years ago when his wanted a divorce. - He reports not knowing if the medicati on is providing any benefit and denies feeling anxious. Irritable Bowel Syndrome: - His stomach cramping has improved, and he no longer takes dicyclomine. - He denies diarrhea or constipation. Gastroesophageal Reflux Disease: - The patient takes omeprazole daily and notes he feels a little off if he misses a dose. Left Shoulder Pain: - The patient reports ongoing left shoul checo pain, which began after an injury at the gym while using a machine with an overhead motion. - An cam specialist recommended a n MRI, and he is awaiting a call to schedule the appointment. - The pain has improved from a few month s ago but still occurs with lifting certain things or sleeping on his left side. Medical History: - Type 2 diabetes mellitus - Anxiety - Irritable bowel syndrome - Left shoulder injury Medications: - Escitalopram 5 mg for anxiety - Omeprazole for GERD/stomach symptoms - Dicyclomine for irritable bowel syndro me (discontinued) - Ozempic 0.25 mg injection for type 2 d iabetes - Pioglitazone 45 mg for type 2 diabetes - Jardiance 25 mg for type 2 diabetes - Glipizide 10 mg for type 2 diabetes [facility] History Tick bite of abdominal wall Environmental allergies Diabetes Post-COVID syndrome History of COVID-19 Erectile dysfunction Surgical History Hx of colonoscopy History of esophagogastroduodenoscopy (EGD) History of anal fissures Family History Father Diabetes Thyroid disease Mother Diabetes Social History Housing: House Are you a primary medicare compliance auditor to a significant other at home: No Do you presently have visiting nurse or other home services: No Alcohol intake: never Patient Tobacco Use Status: Never used Tobacco e-Cigarette/Vaping Use: Never Used Substance Use Type: Marijuana service: No Current occupational status: employed Cognitive needs: No Hearing needs: No Vision needs: No Questionnaire Thrive Questionnaire Date Thrive assessed: 01/04/25 I am a: Patient What is your living situation today?: I have a steady place to live Within the past 12 months, did the food you bought not last and you didn't have the money to get more?: Never true Within the past 12 months, did you worry whether your food would run out before you got money to buy more?: Never true Do you have trouble paying for medicines?: No Do you have trouble getting transportation to medical appointments?: No Do you have trouble paying your heating and electricity bill?: Yes Do you have trouble taking care of your child, family member or friend?: No Do you have trouble with day-to-day activities such as bathing, preparing meals, shopping, managing finances, etc.?: No Are you currently unemployed and looking for a job?: No Are you interested in more education?: No Currently or been in a relationship where the following occur: No concerns reported THRIVE Score: 1 LORETA-7 AMB Questionnaire LORETA-7 Date LORETA - 7 assessed: 08/31/24 Source: Developed by Drs. Michael Bryan, Barbara Yu, Roger Saucedo and colleagues, with an educational vivi from [employer] Review of Systems Narrative Review of Systems - General : no fever no chills - Neurological: No headaches no dizziness - Ear nose throat: No sore throat no hearing difficulty no ear pain - Cardiovascular: No syncope, no chest pain, no palpitations - Gastrointestinal: No nausea vomiting or diarrhea - Endocrine: No polyuria polydipsia no heat intolerance - Genitourinary: No dysuria , no blood in urine Physical exam (Primary Care) Vital Signs: Last Vital Signs Pulse 60 07/20/25 08:14 BP 124/80 07/20/25 08:14 Pulse Ox 97 07/20/25 08:14 BMI result Body Mass Index 34.9 Tobacco/Smoking Status: Tobacco use Status Tobacco use date assessed 01/04/25 07/20/25 08:17 Patient Tobacco Use Status Never used Tobacco 07/20/25 08:17 e-Cigarette/Vaping Use Never Used 07/20/25 08:17 Thrive Assessment: Date of Thrive Assessment Date Thrive assessed 01/04/25 07/20/25 08:17 Currently or been in a relationship where the following occur: No concerns reported Narrative Physical Exam General: No acute distress HEENT: No acute findings Neck: Supple Respiratory system: Able to talk in full sentences, no audible wheeze Cardiovascular: S1-S2 regular in rate and rhythm, no chest pains, no swelling of ankles Gastrointestinal: No pain, no diarrhea, no constipation Extremities: Left shoulder pain, awaiting MRI appointment [employer]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 Skin: Normal turgor Office Procedures Flu Questionnaire Does the patient have a severe egg allergy?: No Does the patient have severe life threatening allergies?: No Does the patient have a fever or illness today?: No Has the patient ever had Guillain-[place] Syndrome?: No Has the patient ever had any past reaction to a flu shot?: No Immunizations Fluarix [id number] (PF) 45 mcg (15 mcg x 3)/0.5 mL IM syringe Performing Provider: Luis Leonard MD Performing Location: [facility] Administered by: Isaias Clarke CMA on 07/20/25 08:28 Dose Route Admin Location Dispensed Lot Number Expiration Date [facility] Scratcher 0.5 mL IM Right Deltoid 0.5 mL 5racy 01/24/26 [id number] [employer] VIS Given Date VIS Provided VIS Publication Date 07/20/25 Single Vaccine 24 Eligibility Eligibility Date Funding Source Not [facility] Eligible 07/20/25 Private Coding Level of Care Code Est Pt Level 4 (28647) Diagnoses Diabetes 1.5, managed as type 2 E13.9 Hypertension, essential I10 Lipid disorder E78.9 Environmental allergies Z91.09 Class 1 obesity due to excess calories with serious comorbidity and body mass index (BMI) of 33.0 to 33.9 in adult E66.09; Z68.33 Body mass index: BMI 33.0-33.9 Obesity classification: adult class 1 (BMI 30 - 34.9) Serious obesity comorbidity presence: with serious comorbidity Chronic GERD K21.9 Rotator cuff insufficiency of left shoulder M25.312 Assessment & Plan Assessment & Plan (1) Diabetes 1.5, managed as type 2: Code(s): E13.9 - Other specified diabetes mellitus without complications Category: Medical (2) Hypertension, essential: Code(s): I10 - Essential (primary) hypertension Category: Medical (3) Lipid disorder: Code(s): E78.9 - Disorder of lipoprotein metabolism, unspecified Category: Medical (4) Environmental allergies: Code(s): Z91.09 - Other allergy status, other than to drugs and biological substances Category: Medical (5) Obesity due to excess calories: Comment: If your BMI is between 25 and 29.9, you are overweight. If your BMI is 30 or greater, you are obese. ___ Being obese is a problem, because it increases the risks of many different health problems. It can also make it hard for you to move, breathe, and do other things that people who are at a healthy weight can do easily. Plus, being obese can be hard emotionally. ___ What are the health risks of being obese? Being obese increases a persons risk of developing many health problems. Here are just a few examples: __ Diabetes High blood pressure, High cholesterol, Heart disease (including heart attacks) Stroke, Sleep apnea (a disorder in which you stop breathing for short periods while asleep) Asthma, Cancer __ Does being obese shorten a persons life? Yes. Studies show that people who are obese younger than people who are a healthy weight. They also show that the risk of goes up the heavier a person is. The degree of increased risk depends on how long the person has been obese, and on what other medical problems he or she has. , Reduce your carbohydrate intake and choose carbs that are complex. Remember as a general rule of thumb, avoid highly processed foods. If it's white and soft, it's probably been stripped of its nutritional value. Change white bread to whole wheat bread, white rice to brown rice, white potatoes to sweet potatoes, white pasta to whole wheat pasta. Monitor portion sizes too: protein should be no bigger than your fist. Limit your red meat intake to only once or twice a wk. Eat more white meat but make sure to avoid creamy sauces etc. Broiling, baking or grilling is best. Increase dark, green leafy vegetables and fruits. Code(s): E66.09 - Other obesity due to excess calories Category: Medical Qualifiers: Body mass index: BMI 33.0-33.9 Obesity classification: adult class 1 (BMI 30 - 34.9) Serious obesity comorbidity presence: with serious comorbidity Qualified Code(s): E66.09 - Other obesity due to excess calories; Z68.33 - Body mass index [BMI] 33.0-33.9, adult (6) Chronic GERD: Code(s): K21.9 - Gastro-esophageal reflux disease without esophagitis Category: Medical (7) Rotator cuff insufficiency of left shoulder: Code(s): M25.312 - Other instability, left shoulder Category: Medical Plan Problem List - Type 2 diabetes mellitus - Anxiety - Irritable bowel syndrome - Left shoulder pain - Preventative care: Influenza vaccination - Preventative care: Pneumococcal vaccination Plan - Discontinue escitalopram 5 mg as the patient reports no benefit and denies anxiety. - Continue omeprazole as needed for stomach symptoms. - Discontinue glipizide 10 mg due to good glycemic control (HbA1c 6.5) and risk of hypoglycemia with missed meals. - The patient will monitor his fasting blood glucose for a week and send the readings via the patient portal. - Continue Ozempic, pioglitazone, and Jardiance without changes at this time. - Consider increasing the Ozempic dosage in the future if needed and tolerated. - Provided counseling on the need for weight loss. - Patient to follow-up with orthopedics regarding his left shoulder pain and proceed with the planned MRI. - Administered influenza vaccine in-office. - Plan to administer pneumococcal vaccine at the next visit. - Canceled the appointment scheduled for August and will schedule a follow-up in three months. Orders: Orders Basic Metabolic Panel 3 Months E13.9 - Other specified diabetes mellitus without complications, E66.09 - Other obesity due to excess calories, E78.9 - Disorder of lipoprotein metabolism, unspecified, I10 - Essential (primary) hypertension, K21.9 - Gastro-esophageal reflux disease without esophagitis, Z 68.33 - Body mass index [BMI] 33.0-33.9, adult, Z91.09 - Other allergy status, other than to drugs and biological substances Influenza [id number] Immunization Today Z23 - Encounter for immunization Hemoglobin A1c 3 Months E13.9 - Other specified diabetes mellitus without complications, E66.09 - Other obesity due to excess calories, E78.9 - Disorder of lipoprotein metabolism, unspecified, I10 - Essential (primary) hypertension, K21.9 - Gastro-esophageal reflux disease without esophagitis, Z68.33 - Body mass index [BMI] 33.0-33.9, adult, Z91.09 - Other allergy status, other than to drugs and biological substances Microalbumin, Random (w Creat) 3 Months E13.9 - Other specified diabetes mellitus without complications, E66.09 - Other obesity due to excess calories, E78.9 - Disorder of lipoprotein metabolism, unspecified, I10 - Essential (primary) hypertension, K21.9 - Gastro-esophageal reflux disease without eso phagitis, Z68.33 - Body mass index [BMI] 33.0-33.9, adult, Z91.09 - Other allergy status, other than to drugs and biological substances Medications: Discontinued dicyclomine Discontinued Reason: Doctor's Order 20 mg PO TID 30 days 90 tabs 0RF escitalopram oxalate (Lexapro) Discontinued Reason: Doctor's Order 5 mg PO DAILY 90 tabs 0RF On Hold glipizide Hold Comment: Doctor's Order 10 mg PO DAILY 90 tabs 0RF
== END 2025-07-20 08:40 | disposition home or self-care (01) ==
LOC: HO.HMCC 08:08
PROVIDERS: PCP Internal Medicine; Visit Provider Internal Medicine
DX: E13.9 Other specified diabetes mellitus without complications (principal); I10 Essential (primary) hypertension; E78.9 Disorder of lipoprotein metabolism, unspecified; Z91.09 Other allergy status, other than to drugs and biological substances; E66.09 Other obesity due to excess calories; Z68.33 Body mass index [BMI] 33.0-33.9, adult; K21.9 Gastro-esophageal reflux disease without esophagitis; M25.312 Other instability, left shoulder; Z23 Encounter for immunization

== ENCOUNTER → 2025-07-20 08:07 | Outpatient (BNVA) | payer OTHER, SELFPAY | PROVIDERS: PCP Internal Medicine; Visit Provider Internal Medicine | DX: E13.9 Other specified diabetes mellitus without complications (principal); I10 Essential (primary) hypertension; E78.9 Disorder of lipoprotein metabolism, unspecified; Z91.09 Other allergy status, other than to drugs and biological substances; E66.09 Other obesity due to excess calories; Z68.33 Body mass index [BMI] 33.0-33.9, adult; K21.9 Gastro-esophageal reflux disease without esophagitis; M25.312 Other instability, left shoulder; Z23 Encounter for immunization | CPT/HCPCS: 90471; 90656 ==